=== PATIENT | male | born 1945 | race Caucasian/White ===

== ENCOUNTER 2016-11-02 21:21 | Inpatient (IN) ==
[2016-11-02] MEDS ORDERED: ONDANSETRON 4 MG/2 ML VIAL IV PRN (22:44)
[2016-11-02] MEDS ORDERED: SODIUM CHLORIDE 0.9% 500 ML IV STA (22:44)
[2016-11-02] MEDS ORDERED: ONDANSETRON 4 MG/2 ML VIAL ONE (22:50)
--- NOTE | 2016-11-02 22:51 | EKG Report ---
Stationary ECG Study [facility] ER Test Date: 11/02/2016 9:37:09 PM Pat Name: MILY SALGUERO Department: Room: Gender: M Blind Lacer: : 1945 Requested by: Jose Auguste Order Number: [id number] Reading MD: TIP LOCO Intervals [place] Rate: 108 P: 999 NC: 0 QRS: 169 QRSD: 105 T: 150 QT: 327 QTc: 391 Interpretive Statements ATRIAL FIBRILLATION WITH RAPID VENTRICULAR RESPONSE INDETERMINATE AXIS LOW QRS VOLTAGE IN PRECORDIAL LEADS LATERAL MYOCARDIAL INFARCTION, OLD Electronically Signed On 11-05-16 21:14:24 CDT by TIP LOCO [email or web address]
[2016-11-02 22:53] LABS: Basophils # 0.1 10*3/uL (0.0-0.2); Basophils % 0.7 % (0.0-0.8); Eosinophils # 0.2 10*3/uL (0.0-0.87); Eosinophils % 1.4 % (0.00-10.9); Hematocrit 40.6 VOL% (42.0-52.0); Hemoglobin 14.4 GM/DL (14.0-18.0); Immature Granulocytes % 0.6 %; Immature Granulocytes Absolute 0.08 #; Lymphocytes # 1.6 10*3/uL (1.4-4.0); Mean Corpuscular HGB Conc 35.5 GM/DL (32-36); Mean Corpuscular Hemoglobin 33 PG (27-34); Mean Platelet Volume 11.1 FL (9.6-12.0); Neutrophils # 10.7 10*3/uL (1.4-7.4); Neutrophils % 78.3 % (38.7-73.9); Platelet Count 148 T/CUMM (130-400); Red Blood Count 4.32 MC/CUMM (3.8-5.5); Red Cell Distribution Width 12.7 % (9.3-17.3); White Blood Count 13.6 T/CUMM (4-12)
[2016-11-02 23:00] LABS: PT Patient Result 10.4 SECS; Partial Thromboplastin Time 24.8 SECS (0-40)
[2016-11-02 23:11] LABS: Alanine Aminotransferase 24 U/L (16-61); Albumin 3.7 G/DL (3.4-5.0); Alkaline Phosphatase 93 U/L (45-117); Aspartate Amino Transferase 24 U/L (0-37); Blood Urea Nitrogen 18 MG/DL (7-18); Calcium 9.1 MG/DL (8.5-10.1); Glucose 155 MG/DL (74-106); Osmolality,Calculated 285.3 MOS/KG (273-304); Potassium 3.6 MMOL/L (3.5-5.1); Sodium 141 MMOL/L (136-145); Total Protein 7.4 G/DL (6.4-8.3)
--- NOTE | 2016-11-02 23:24 | Emergency Department Note ---
Arrival - Arrival Chief Complaint: Neuro Stated Complaint: possible stroke,vomiting, ED Nursing Triage Note: pt to triage with c/o nausea, sob, vommitting, and left side weakness. pt pupils reactive, pt is able to move all extremities. pt is alert, oriented, with no distress noted. pt bg was 149 in triage Mode of Arrival: Wheelchair Limitations: No Limitations Source: Patient, Family, RN Notes Reviewed Time Seen by Provider: 11/02/16 22:20 - History of Present Illness HPI Narrative: The family brings the patient in complaining of left sided weakness and slurred speech. This apparently started about 740 tonight when he fell and wedged himself between the bed and the wall. When they were able to remove him they state his left side was flaccid and speech was very slurred with a left facial droop. He had some vomiting and diaphoresis. They loaded him in the car and brought him here. By the time of arrival he was able to sit up in the wheelchair and his weakness had significantly improved. The patient has a history of atrial fibrillation. He was on an anticoagulant at some point but discontinued it over a year ago. 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 He has no history of CVA, intracranial hemorrhage or hemorrhage of any kind. He reports no recent illness. Allergies/Adverse Reactions: Allergies Allergy/AdvReac Type Severity Reaction Status Date / Time No Known Allergies Allergy Unverified 11/02/16 21:29 Home Medications: Home Medications Medication Instructions Recorded Confirmed Type Aspirin 81 mg PO DAILY 11/02/16 11/02/16 History Atorvastatin [Lipitor] 20 mg PO DAILY 11/02/16 11/02/16 History Carvedilol [Coreg] 6.25 mg PO BID 11/02/16 11/02/16 History Diltiazem Tab [Cardizem Tab] 240 mg PO DAILY 11/02/16 11/02/16 History Enalapril Tab [Vasotec Tab] 2.5 mg PO BID 11/02/16 11/02/16 History Furosemide Tab [Lasix Tab] 10 mg PO DAILY 11/02/16 11/02/16 History Levothyroxine Tab [Synthroid Tab] 150 mcg PO DAILY@0700 11/02/16 11/02/16 History Review of System - Review of System 12 point system: reviewed and no additional remarkable complaints except as stated - Review of System Constitutional: Present: diaphoresis, weakness. Absent: fever Eyes: Absent: vision change Head/Ears/Nose/Throat: Present: nasal drainage, sore throat Respiratory: Absent: cough, respiratory distress, wheezing Cardiovascular: Absent: chest pain Gastrointestinal: Present: nausea, vomiting. Absent: abdominal pain Musculoskeletal: Absent: arm pain, leg pain Neurological: Present: weakness, confusion, abnormal gait. Absent: numbness, paresthesias Medical,Surgical,& Family Hx - Medical History Cardio: History of: Cardiac Dysrhythmia (Atrial fibrillation), Hypertension Respiratory: History of: COPD, Respiratory Problems (sob, undiagnosed) - Surgical History Surgical History: noncontributory - Family History Family History: noncontributory - Social History Smoking Status: Never smoker Frequency of Alcohol Use: None Type of Drug Use: None Exam Physical Examination: GENERAL: Alert. No acute distress. HEENT: Normocephalic and atraumatic. PERRLA. There is no nasal drainage. No pharyngeal erythema or exudate. NECK: Normal inspection. Supple. No lymphadenopathy or meningismus. LUNGS: No respiratory distress. Clear to auscultation bilaterally, no wheezes, rales or rhonchi. HEART: Regular rate and rhythm. ABDOMEN: Soft, nontender and nondistended with normoactive bowel sounds. BACK: Normal inspection. SKIN: Color normal. Warm and dry. EXTREMITIES: Nontender. No pedal edema. NEUROLOGICAL/PSYCHIATRIC: Alert and oriented -3 with normal mood and affect. Has some trouble following commands due to slowed mentation. He has a left sided facial droop with slurred speech. This involves the forehead. He has a left lateral gaze palsy and does not deviate either eye to the left past midline. There is tongue deviation to the left. There is weakness of the left upper and left lower extremity. He is unable to hold either up against gravity. Reflexes are normal bilaterally. Vital Signs: Vital Signs Temperature 96.4 F L 11/02/16 21:22 Pulse Rate 107 H 11/02/16 21:22 Respiratory Rate 18 11/02/16 21:22 Blood Pressure 187/147 11/02/16 21:22 O2 Sat by Pulse Oximetry 94 L 11/02/16 21:22 Course - Reevaluation(s) Reevaluation #1: I have discussed the patient with Dr. Munoz and he does not recommend TPA given that the patient is approximately 4 hours out from the event and his blood pressure is still elevated. I discussed this with the patient and the family and they agree. Time: 23:44 Reevaluation #2: Blood pressure now 128/101. No change in the patient's neurologic exam. Time: 23:58 Reevaluation #3: I have discussed the patient with Dr. Li and will admit to Dr. Cui. ICU. Time: 00:01 Results - Labs CBC & BMP: 11/02/16 22:18 11/02/16 22:18 Lab Results: I have reviewed the patients labs Labs: Laboratory Tests 11/02/16 11/02/16 11/02/16 22:18 22:18 22:18 INR 1.0 Total Bilirubin 0.50 AST 24 ALT 24 Alkaline Phosphatase 93 Urine Leukocytes Trace Urine RBC 145 Urine WBC 21 Ur Culture Indicated? Results to follow - Impressions CT of the head shows no acute intracranial abnormality. Disposition Clinical Impression: Cerebrovascular accident, Hypertension, Atrial fibrillation Case discussed with: patient, patient's family Disposition: Still a Patient Condition: Guarded Time of Disposition: 23:59
[2016-11-02 23:31] LABS: Barbiturates Screen,Urine Negative (Negative); Benzodiazepines Screen,Urine Negative (Negative); Cannabinoid Screen,Urine Negative (Negative); Opiate Screen,Urine Negative (Negative); Phencyclidine Screen,Urine Negative (Negative)
[2016-11-02] MEDS ORDERED: hydrALAZINE 20 MG/1 ML VIAL ONE (23:34)
[2016-11-02 23:43] LABS: Apearance,Urine Slightly Hazy (Clear); Bilirubin,Urine Negative (Negative); Blood, Urine Moderate mg/dL (Negative); Glucose,Urine (UA) Negative (Negative); Hyaline Casts,Urine 1 /LPF (0-3); Ketones,Urine Negative (Negative); Mucus,Urine Occasional /LPF (Occasional); Nitrite,Urine Negative (Negative); Protein,Urine 30 MG/DL; RBC,Urine 145 /HPF (0-4); Urine Color Yellow (Yellow); Urine Specific Gravity 1.011 (1.001-1.035); Urine Urobilinogen < 2.0 EU/DL (0.2-1.0); WBC,Urine 21 /HPF (0-6)
[2016-11-02] MEDS ORDERED: ASPIRIN 325 MG TABLET PO STA (23:59)
[2016-11-02] MEDS ORDERED: ENOXAPARIN 40 MG/0.4 ML SYRINGE SUBCUT STA (23:59)
[2016-11-03] MEDS ORDERED: PROMETHAZINE 12.5 MG SUPP RECTAL PRN (00:02)
[2016-11-03] MEDS ORDERED: ACETAMINOPHEN 325 MG TABLET PO PRN (00:02)
[2016-11-03] MEDS ORDERED: ONDANSETRON 4 MG/2 ML VIAL IV PRN (00:02)
[2016-11-03] MEDS ORDERED: LABETALOL 20 MG/4 ML SYRINGE IV PRN (00:07)
[2016-11-03] MEDS: DILTIAZEM INJ 100 MG in SODIUM CHLORIDE 0.9% 100 ML IV SCH (00:11)
[2016-11-03] MEDS ORDERED: DILTIAZEM 100 MG VIAL.ADD IV ONE ×2 (00:20→02:00)
[2016-11-03] MEDS ORDERED: SODIUM CHLORIDE 0.9% 0 ML IV ONE (00:21)
[2016-11-03] MEDS ORDERED: SODIUM CHLORIDE 0.9% 100 ML IV ONE ×2 (02:01→02:04)
[2016-11-03] MEDS: DEXTROSE 5% NACL 0.45% 1,000 ML IV SCH ×5 (02:07→22:04)
--- NOTE | 2016-11-03 06:59 | CT Report ---
CT head/brain wo con Indication: Left hemiparesis Comparison: None Technique: Multiple axial tomographic images of the brain were obtained without the use of intravenous contrast. Findings: Midline structures are nondisplaced. There is no convincing evidence of acute intracranial hemorrhage . No convincing evidence of hydrocephalus. Moderate global volume loss present. Mild periventricular and subcortical hypoattenuation noted which is nonspecific but consistent with chronic microvascular ischemic change. Demyelinating process and vasculitis less likely considerations. Senescent mineralization of the bilateral basal ganglia. Atherosclerotic calcifications demonstrated. The visualized paranasal sinuses and bilateral mastoid air cells are predominantly clear. IMPRESSION: No acute intracranial abnormality demonstrated. Probable chronic microvascular ischemic change and volume loss. The CT exam was performed using one or more of the following dose reduction techniques: Automated exposure control, adjustment of the mA and/or kV according to patient size, or use of iterative reconstruction technique. PROCEDURE INTERPRETED AT [facility] DEPARTMENT OF RADIOLOGY Final Report Signed by: Dr Robbin Sethi
--- NOTE | 2016-11-03 07:55 | XRay Report ---
XR chest 1V portable Indication: Cardiomegaly Comparison: Chest x-ray dated June 17, 2012 Technique: Single frontal view of the chest. Findings: [id number] cardiomegaly. Mild prominence of interstitial lung markings suspicious for mild interstitial pulmonary edema. Visualized osseous and surrounding soft tissue structures appear grossly unchanged. IMPRESSION: As above. PROCEDURE INTERPRETED AT [facility] DEPARTMENT OF RADIOLOGY Final Report Signed by: Dr Robbin Sethi
[2016-11-03 08:41] LABS: Risk Ratio 5.25; VLDL CHOLESTEROL 38.4 MG/DL
[2016-11-03 08:57] LABS: Free T4 (Free Thyroxine) 0.74 NG/DL (0.76-1.46); Thyroid Stimulating Hormone 14.3 uIU/ml (0.358-3.74)
[2016-11-03] MEDS ORDERED: DOCUSATE SODIUM 100 MG CAPSULE PO SCH (09:00)
[2016-11-03] MEDS ORDERED: ATORVASTATIN 20 MG TABLET PO SCH (09:00)
[2016-11-03] MEDS: ENALAPRIL 2.5 MG TABLET PO SCH ×2 (09:04→20:13)
[2016-11-03] MEDS: ASPIRIN 325 MG TABLET PO SCH (09:04)
[2016-11-03] MEDS: FUROSEMIDE 20 MG TABLET PO SCH (09:04)
[2016-11-03] MEDS: PANTOPRAZOLE 40 MG VIAL IV SCH (09:05)
[2016-11-03] MEDS: CARVEDILOL 6.25 MG TABLET PO SCH ×2 (09:05→20:13)
--- NOTE | 2016-11-03 10:10 | Ultrasound Report ---
US carotid duplex BI Indication: CVA. Comparison: None. Technique: Multiple longitudinal and transverse real-time sonographic images of the bilateral carotid arterial systems are obtained with grayscale, spectral, and color Doppler analysis. Findings: Peak systolic velocities within the right CCA, proximal ICA, and distal ICA are 56, 107, and 69 cm/s respectively. Peak systolic velocities within the left CCA, proximal ICA, and distal ICA are 72, 93, and 74 cm/s respectively. ICA/CCA ratios on the right and left are 1.9 and 1.3 respectively. Antegrade flow demonstrated within the bilateral vertebral arteries. Grayscale imaging demonstrates significant atherosclerotic calcification bilaterally. On the left, there is suggesting significant narrowing of the left cervical ICA. IMPRESSION: Grayscale imaging demonstrates significant atherosclerotic calcification bilaterally. On the left, there is suggesting significant narrowing of the left cervical ICA. No significant elevated velocities. Consider CTA neck for further evaluation. Indirect NASCET criteria utilized. PROCEDURE INTERPRETED AT [facility] DEPARTMENT OF RADIOLOGY Final Report Signed by: Dr Robbin Sethi
--- NOTE | 2016-11-03 10:51 | ECHO Report ---
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 Mild - moderate concentric left ventricular hypertrophy with diastolic dysfunction. Left ventricular ejection fraction is estimated at Right Ventricle Normal right ventricular size. Right Atrium The right atrium is mild - moderately enlarged. Left Atrium The left atrium is mild - moderately enlarged. Mitral Valve Mildly thickened mitral valve with mild mitral regurgitation. Aortic Valve Mild aortic valve sclerosis without stenosis.trace aortic valve regurgitation. Tricuspid Valve Morphologically normal tricuspid valve. Trace to mild tricuspid valve regurgitation. Tricuspid regurgitation velocities suggest a PAP of 22.3 mmHg + RAP. Pulmonic Valve Thickened pulmonic valve. Trace pulmonary valve regurgitation. Pericardium No pericardial effusion. Aorta Normal size aortic root and proximal ascending aorta. Darion Hernandez (Electronically Signed) Final Date: 03 November 2016 10:49
--- NOTE | 2016-11-03 11:56 | Magnetic Resonance Report ---
MRI brain without contrast Indication: Cerebrovascular occlusion Comparison: None available Technique: Axial sagittal and coronal imaging of the brain is performed without contrast. T1, T2, FLAIR and diffusion weighted sequences are performed. Findings: There is restricted diffusion occupying a large area of the right basal ganglia and small amount in the right temporal lobe. These areas of faint T2 signal hyperintensity. No other evidence of restricted diffusion seen. No evidence of intracranial hemorrhage, mass, mass effect or midline shift is seen. There is moderate diffuse cerebral volume loss. A few areas of white matter T2 signal hyperintensity are present in the periventricular areas without restricted diffusion. There is decreased vascular flow voids in the right middle cerebral artery distribution. Remaining parenchyma has normal signal and differentiation. The ventricles and cisterns are appropriate in caliber. Posterior fossa, mid brain and pituitary gland appear within normal limits. No evidence of cranial or skull base abnormality seen. Impression: There is of restricted diffusion consistent with infarct likely greater than 8 hours age in the right basal ganglia and right temporal lobe. There is decreased flow void in the right middle cerebral artery could indicate thrombosis. PROCEDURE INTERPRETED AT [facility] DEPARTMENT OF RADIOLOGY Final Report Signed by: Dr. Brian Camara
--- NOTE | 2016-11-03 12:16 | Cardiology Consult Note ---
Harry Guerrero Vanessa, RN, am scribing for, and in the presence of, Darion Hernandez MD 12:16. Assessment and Plan - Time spent with patient Time spent with patient: Greater than 30 minutes (Date of assessment, planning, documentation, medication review) (1) Cerebrovascular accident Status: Acute Assessment and plan: 71 year old WM with PMHx hypertension, dyslipidemia, hypothyroid, cardiomyopathy with EF 45-50%, and chronic atrial fibrillation. Stopped taking anticoagulation approximately 1 year ago per patient decision. No GI bleeding or other intolerance. Now admitted to ICU with acute CVA. 1. Acute CVA-no evidence of bleed per head CT but significantly elevated BP. No TPA adminstered due to late presentation. Echo this morning suspicious for chronic (organized) LV apical thrombus. Neurology evaluation pending. 2. Atrial fibrillation-chronic. Has not been anticoagulated for stroke prevention in the past year (declined anticoagulation Dr. Hansen's clinic note 2016). IV Cardizem infusion with controlled ventricular response (had transient modest RVR initially). Currently Lovenox 40mg subQ daily, and full dose aspirin. 3. Hypertension- chronic. Significantly elevated BP on presentation to ER, 180/ 105, improved with IV hydralazine. Currently labetalol 10 mg IV as needed for uncontrolled HTN. Enalapril 2.5 twice daily and carvedilol 6.25 mg by mouth twice daily resumed at admission. Blood pressure now in the 150 systolic range which seems reasonable, but would defer to neurology for optimal blood pressure goal status post acute stroke. 4. Mild cardiomyopathy seems slightly better than previously, and previously has been felt to be nonischemic due to RVR and hypertension. 5. Dyslipidemia- was previously on Lipitor but quit taking. Atorvastatin 20 mg PO daily initiated. Fasting lipid panel this morning with triglycerides 192, cholesterol 210, LDL 131. Increase Lipitor 80 mg daily given this and his significant carotid artery disease noted today. 6. Hypothyroidism, TSH 14.3 with free T4 0.74. Synthroid supplement continued. Current Visit: Yes (2) Chronic atrial fibrillation Status: Chronic Assessment and plan: SEE PLAN OF CARE LISTED ABOVE. Current Visit: Yes (3) Hypertension Status: Chronic Assessment and plan: SEE PLAN OF CARE LISTED ABOVE. Current Visit: Yes (4) Hyperlipidemia Status: Chronic Assessment and plan: SEE PLAN OF CARE LISTED ABOVE. Current Visit: Yes (5) Hypothyroidism Status: Chronic Assessment and plan: SEE PLAN OF CARE LISTED ABOVE. Current Visit: Yes (6) Cardiomyopathy Status: Chronic Assessment and plan: SEE PLAN OF CARE LISTED ABOVE. Current Visit: Yes History of Present Illness - Data of Consult Patient: known to practice within the last 3 years Consult date: 11/03/16 Requesting Physician: Stas Cui - Consult Narrative Reason for consult: Atrial fibrillation History of present illness: Page Technician: Dr. Hansen Mr. Miner, 71-year-old WM, PMHx hypertension, hypercholesterolemia, hypothyroidism, and chronic atrial fibrillation. History of slightly reduced systolic function and cardiomyopathy related to tachycardia, hypertension, stress reaction. Last echo available December 2014 with LV EF 40-55%, mild biatrial enlargement,, mildly enlarged RV, mild TR with RVSP 24-34 mmHg. It was felt his dysfunction would most likely improve over time with more controlled ventricular response in atrial fibrillation. Last seen in clinic in April 2016 for 6 month follow-up, and BP controlled 128/85. He had no chest pain, orthopnea, PND, or other complaint. He is currently admitted to [facility] ICU after presenting overnight to ED after patient fell at home last night, afterward had some left sided hemiparesis , facial droop, and slurred speech with nausea and. He was assisted by family members, brought to ER for evaluation, and by the time he arrived to ER, symptoms had improved some but had some continued nausea plus shortness of breath. Significant hypertension in ER with BP 180/105. CT of his with chronic microvascular ischemic changes but no acute bleed or ischemia. He did not receive TPA as he was approximately 4 hours post event. EKG demonstrated atrial fibrillation with ventricular response 120, no acute ischemic change. Was given IV hydralazine, SubQ Lovenox prior to transfer to ICU. Has been placed on IV diltiazem infusion. Cardiology consult to see patient for history of atrial fibrillation. Carotid doppler US this morning with significant left ICA narrowing. Mr. Miner is is no acute respiratory distress. Denies current chest discomfort or dyspnea. Significant left facial droop, slurred speech, left side hemiplegia with some movement of left leg. BP 150/78. Atrial fib with ventricular response 60s. Denies history of GI bleeding or other intolerance of anticoagulation in the past. He took Coumadin for stroke prevention until approximately one year ago when he declined to continue to take it as he felt it was no longer necessary. CC: Stas Cui DO - Home Medications and Allergies Home Medications: Home Medications Medication Instructions Recorded Confirmed Type Aspirin 81 mg PO DAILY 11/02/16 11/03/16 History Atorvastatin [Lipitor] 20 mg PO DAILY 11/02/16 11/03/16 History Carvedilol [Coreg] 6.25 mg PO BID 11/02/16 11/03/16 History Enalapril Tab [Vasotec Tab] 2.5 mg PO BID 11/02/16 11/03/16 History Furosemide Tab [Lasix Tab] 10 mg PO DAILY 11/02/16 11/03/16 History Levothyroxine Tab [Synthroid Tab] 150 mcg PO DAILY@0700 11/02/16 11/03/16 History Diltiazem Cd Cap [Cardizem CD] 240 mg PO DAILY 11/03/16 11/03/16 History Allergies/Adverse Reactions: Allergies Allergy/AdvReac Type Severity Reaction Status Date / Time No Known Allergies Allergy Unverified 11/02/16 21:29 - Constitutional Constitutional: Present: weakness. Absent: anorexia, chills, excessive sweating , fatigue, fever(s), frequent falls, lethargy, weight gain, weight loss - EENT Eyes: Absent: blurry vision, loss of vision Ears: Absent: decreased hearing Nose, mouth and throat: Absent: dysphagia, epistaxis, hoarseness, nasal congestion, neck pain, sinus pressure, tongue swelling, vertigo - Cardiovascular Cardiovascular: Absent: chest pain at rest, chest pain with activity, claudication, diaphoresis, dyspnea, dyspnea on exertion, edema, radiating jaw, neck or arm pain, lightheadedness, orthopnea, palpitations, PND - Respiratory Respiratory: Absent: cough, dyspnea, dyspnea on exertion, change in phlegm color - Gastrointestinal Gastrointestinal: Absent: abdominal pain, dysphagia, early satiety, hematemesis , melena, nausea, vomiting, jaundice - Genitourinary Genitourinary: Absent: difficulty urinating, flank pain, nocturia - Musculoskeletal Musculoskeletal: Present: arthralgias, limited range of motion (Due to acute CVA ) - Neurological Neurological: Absent: abnormal gait, abnormal speech, confusion, dizziness, radicular pain, syncope, tremor(s) - Psychiatric Psychiatric: Absent: anxiety, depression - Endocrine Endocrine: Absent: cold intolerance, heat intolerance - Hematologic/Lymphatic Hematologic/Lymphatic: Absent: easy bleeding, easy bruising Medical,Surgical,& Family Hx - Medical History Cardio: History of: Cardiac Dysrhythmia (Atrial fibrillation), Hypertension No history of: CAD, Pacemaker, PVD Psychological: History of: Anxiety Disorders, Depression Neurology: No history of: Dementia, Seizures, TIA Endocrine: History of: Dyslipidemia, Thyroid Disorder No history of: Diabetes Mellitus (IDDM), Diabetes Mellitus (NIDDM) Respiratory: History of: COPD, Respiratory Problems (sob, undiagnosed) No history of: Pulmonary Embolism Renal: No history of: Dialysis, Renal Problems Gastrointestinal: No history of: GERD, Hepatitis Musculoskeletal: No history of: Back/Neck Problems Hematology: No history of: Anemia, Blood Transfusion Reaction, Bleeding Problems, Clotting Problems Other: No history of: Cancer, HIV - Surgical History Cardiac Surgeries: Patient Denies: Cardiac Catheterization, Carotid Endarterectomy - Social History Smoking Status: Never smoker Frequency of Alcohol Use: None Type of Drug Use: None Physical Examination Vital Signs Temp Pulse Resp BP Pulse Ox 96.4 F L 107 H 18 187/147 94 L 11/02/16 21:22 11/02/16 21:22 11/02/16 21:22 11/02/16 21:22 11/02/16 21:22 General: Present: No Apparent Distress, Other (pleasant, calm, cooperative) HEENT: Absent: Jaundice Neck: Present: Midline Trachea Cardiac: Present: Irregularly Regular, Systolic Murmur. Absent: Tachycardia, Bradycardia Lungs: Present: Clear Ascult./Percussion, No Wheeze, Rales, Rhonchi. Absent: Oxygen Neuro: Present: Weakness (left hemiplegia with paralysis left arm), Other (left sided facial droop; slurred speech). Absent: Resting Tremor, Essential Tremor Abdomen: Present: Soft, Active Bowel Sounds, No Masses, No Pulsations/Bruits. Absent: Ascites, Tender, Firm, Distended Skin: Present: Clear. Absent: Rash, Suspicious Lesions, Moist Musculoskeletal: Present: Decreased Range of Motion (due to acute CVA) Extremities: Present: No Clubbing, No Cyanosis, No Edema, Normal Upper Extr. Pulses, Normal Lower Extr. Pulses, Capillary Refill (normal) Result/EKG - Labs CBC & BMP: 11/02/16 22:18 11/02/16 22:18 Lab Results: I have reviewed the past 24 hour labs Labs: Laboratory Results - last 24 hr 11/02/16 11/02/16 11/02/16 22:18 22:18 22:18 WBC 13.6 H RBC 4.32 Hgb 14.4 Hct 40.6 L MCV 94.0 MCH 33 MCHC 35.5 RDW 12.7 Plt Count 148 MPV 11.1 Neut % (Auto) 78.3 H Lymph % (Auto) 12.0 L Foster % (Auto) 7.0 Eos % (Auto) 1.4 Baso % (Auto) 0.7 Neut # (Auto) 10.7 H Lymph # (Auto) 1.6 Foster # (Auto) 1.0 H Eos # (Auto) 0.2 Baso # (Auto) 0.1 Immature Gran % 0.6 Nucleated RBC % 0.0 Immature Gran # 0.08 Nucleated RBCs # 0.00 Immature Plt Fraction 0.0 INR PT Patient/Control Mix Circ Anticoag PTT Sodium Potassium Chloride Carbon Dioxide Anion Gap BUN Creatinine GFR Calculation BUN/Creatinine Ratio Glucose Calculated Osmolality Calcium Total Bilirubin AST ALT Alkaline Phosphatase Total Protein Albumin Globulin Albumin/Globulin Ratio Urine Color Yellow Urine Appearance Slightly hazy Urine pH 6.0 Ur Specific [place] 1.011 Urine Protein 30 Urine Glucose (UA) Negative Urine Ketones Negative Urine Blood Moderate Urine Nitrate Negative Urine Bilirubin Negative Urine Urobilinogen < 2.0 H Urine Leukocytes Trace Urine RBC 145 Urine WBC 21 Hyaline Casts 1 Urine Mucus Occasional Ur Culture Indicated? Results to follow Urine Opiates Screen Negative Ur Barbiturates Screen Negative Ur Phencyclidine Scrn Negative U Amphetamine/Methamph Negative U Benzodiazepines Scrn Negative U Cocaine Metab Screen Negative U Cannabinoids Screen Negative Serum Alcohol 11/02/16 11/02/16 22:18 22:18 WBC RBC Hgb Hct MCV MCH MCHC RDW Plt Count MPV Neut % (Auto) Lymph % (Auto) Foster % (Auto) Eos % (Auto) Baso % (Auto) Neut # (Auto) Lymph # (Auto) Foster # (Auto) Eos # (Auto) Baso # (Auto) Immature Gran % Nucleated RBC % Immature Gran # Nucleated RBCs # Immature Plt Fraction INR 1.0 PT Patient/Control Mix 10.4 Circ Anticoag PTT 24.8 Sodium 141 Potassium 3.6 Chloride 103 Carbon Dioxide 33 H Anion Gap 8.6 BUN 18 Creatinine 1.50 H GFR Calculation 53 BUN/Creatinine Ratio 12.00 Glucose 155 H Calculated Osmolality 285.3 Calcium 9.1 Total Bilirubin 0.50 AST 24 ALT 24 Alkaline Phosphatase 93 Total Protein 7.4 Albumin 3.7 Globulin 3.7 H Albumin/Globulin Ratio 1.0 L Urine Color Urine Appearance Urine pH Ur Specific [place] Urine Protein Urine Glucose (UA) Urine Ketones Urine Blood Urine Nitrate Urine Bilirubin Urine Urobilinogen Urine Leukocytes Urine RBC Urine WBC Hyaline Casts Urine Mucus Ur Culture Indicated? Urine Opiates Screen Ur Barbiturates Screen Ur Phencyclidine Scrn U Amphetamine/Methamph U Benzodiazepines Scrn U Cocaine Metab Screen U Cannabinoids Screen Serum Alcohol < 15 L - Diagnostic Findings Procedure: Chest x-ray: image reviewed by me, report reviewed by me, CT: image reviewed by me, report reviewed by me - EKG EKG results: interpreted by me, no acute changes EKG shows: atrial fibrillation (Controlled ventricular response) Quality Measures - Stroke Onset of Symptoms Date: 11/02/16 Mary Guerrero Randall Scott, MD, personally performed the services described in this documentation, ascribed by Jody Mcdonald RN in my presence, and it is both accurate and complete 216 .
--- NOTE | 2016-11-03 12:45 | Family Practice History&Phys ---
Assessment and Plan (1) Atrial fibrillation Status: Acute Assessment and plan: 11/03/2016. Patient's rate is under control with Cardizem. Cardiology is involved Current Visit: Yes (2) Cerebrovascular accident Status: Acute Assessment and plan: 11/03/2016: I am going to see about transferring him to [facility] if he meets the timeframe. We just got the MRI results back about 45 minutes ago. Current Visit: Yes (3) Cardiomyopathy Status: Chronic Assessment and plan: 11/03/2016: Cardiology involved. Echocardiogram was done. We also did a carotid duplex which reveals some narrowing, please see result Current Visit: Yes (4) Chronic atrial fibrillation Status: Chronic Assessment and plan: 11/03/2016: This is being managed by Cardizem with good rate control at present. Patient has not been on Coumadin as he is refused in the past Current Visit: Yes (5) Hyperlipidemia Status: Chronic Assessment and plan: 11/03/2016: Patient has historically been on lipid statins but question his compliance. Current Visit: Yes (6) Hypertension Status: Chronic Assessment and plan: 11/03/2016: This is under control o at this time Current Visit: Yes (7) Hypothyroidism Status: Chronic Assessment and plan: 11/03/2016 we will make some adjustments to the S1 outpatient basis. Current Visit: Yes History of Present Illness Chief complaint: Left sided hemiparesis, slurred speech, CVA History of present illness: Mr. Miner is a 71 year old male Known to me, saw him this morning. Does have a history of hypertension, hypothyroidism, hypercholesterolemia and and chronic atrial fibrillation for which he has refused treatment in the past. Also has had a cardiomyopathy in the past. His last echocardiogram revealed an ejection fraction of about 50% in 2014. He came to the emergency room after he fell at home last night and it was noted that he had some left sided hemiparesis with slurred speech and nausea. He also had elevated blood pressure which was treated with appropriate medications. It was quite clear that he had had a stroke however it was not within the 4 hour timeframe required and did not get a TB at that time. He was given medication including Lovenox and aspirin. As mentioned, was given medication for his elevated blood pressure. This morning was saying continues to have inability to basically move his left arm or left leg. He does have some slightly slurred speech but he answers and tries to follow commands. Blood pressure is much improved at 140/79 at present. He does still have a irregular heart rate suggesting atrial fibrillation but his rate is controlled. A CBC revealed a white count of 13.6 with a normal H and H. Chemistries were normal except for slight elevation of creatinine 1.5. He does have elevated cholesterol but apparently is not taking his statins at this time. Urinalysis was normal. A CT scan was performed of the brain which revealed no bleed but some microvascular changes. MRI of the brain was just done and there was a noted infarct in the right basal ganglia and right temporal lobe. With decreased flow in the right middle cerebral artery, possibly a thrombosis. Will try to maximize medications and keep his blood pressure and heart rate under control which he has had consultation to cardiology and we do appreciate their services. We will see if we need to transfer him or if he meets criteria. Home Medications Medication Instructions Recorded Confirmed Type Aspirin 81 mg PO DAILY 11/02/16 11/03/16 History Atorvastatin [Lipitor] 20 mg PO DAILY 11/02/16 11/03/16 History Carvedilol [Coreg] 6.25 mg PO BID 11/02/16 11/03/16 History Enalapril Tab [Vasotec Tab] 2.5 mg PO BID 11/02/16 11/03/16 History Furosemide Tab [Lasix Tab] 10 mg PO DAILY 11/02/16 11/03/16 History Levothyroxine Tab [Synthroid Tab] 150 mcg PO DAILY@0700 11/02/16 11/03/16 History Diltiazem Cd Cap [Cardizem CD] 240 mg PO DAILY 11/03/16 11/03/16 History Allergies Allergy/AdvReac Type Severity Reaction Status Date / Time No Known Allergies Allergy Unverified 11/02/16 21:29 12 point system: reviewed and no additional remarkable complaints except as stated (That mentioned above in the history and physical.) - Neurological Neurological: Present: abnormal speech, focal weakness, numbness, paresthesias Medical,Surgical,& Family Hx - Medical History Cardio: History of: Cardiac Dysrhythmia (Atrial fibrillation), Hypertension No history of: CAD, Pacemaker, PVD Psychological: History of: Anxiety Disorders, Depression Neurology: No history of: Dementia, Seizures, TIA Endocrine: History of: Dyslipidemia, Thyroid Disorder No history of: Diabetes Mellitus (IDDM), Diabetes Mellitus (NIDDM) Respiratory: History of: COPD, Respiratory Problems (sob, undiagnosed) No history of: Pulmonary Embolism Renal: No history of: Dialysis, Renal Problems Gastrointestinal: No history of: GERD, Hepatitis Musculoskeletal: No history of: Back/Neck Problems Hematology: No history of: Anemia, Blood Transfusion Reaction, Bleeding Problems, Clotting Problems Other: No history of: Cancer, HIV - Surgical History Cardiac Surgeries: Patient Denies: Cardiac Catheterization, Carotid Endarterectomy HEENT Surgeries: Patient denies: Carotid Endarterectomy - Social History Smoking Status: Never smoker Frequency of Alcohol Use: None Type of Drug Use: None Exam - Constitutional Vitals: Period Temp Pulse Resp BP Sys/Elizabeth Pulse Ox Last 24 Hr 96.4 F-98.6 F 64-155 12-22 126-187/75-147 91-98 Exam: 11/03/2016: Generally patient is alert he does respond appropriately and is able to communicate albeit somewhat slow. HEENT pupils are equal and reactive. Patient does have some drooping of the right side of his face. The uvula is midline at this time. He has both left and right movement of his tongue. Neck is supple and trachea is midline. Cardiovascular rate is irregular with a 1 out of 6 systolic ejection murmur there is no gallop or rub. It does look like he has got atrial fibrillation on EKG Lungs generally clear bilaterally may be a few basal rales. Abdomen soft nondistended Extremities positive radial and dorsalis pedal pulses in upper and lower extremities respectively. Neurological please see above note Results - Labs CBC & BMP: 11/02/16 22:18 11/02/16 22:18 Quality Measures - Stroke Onset of Symptoms Date: 11/02/16
[2016-11-03] MEDS: ATORVASTATIN 40 MG TABLET PO SCH (13:58)
--- NOTE | 2016-11-03 15:00 | Neurology Consult Note ---
History of Present Illness History of present illness: Mr. Miner is a 71 year old right-handed white gentleman with past medical history significant for hypertension, hypothyroidism, hypercholesterolemia, chronic atrial fibrillation for which he has refused treatment in the past, cardiomyopathy with last echocardiogram revealed ejection fraction of 50% in 2014. He came to the emergency room after he fell at home last night and it was noted that he had some left sided weakness with slurred speech and nausea. He also had elevated blood pressure which was treated with appropriate medications. He was started on Lovenox and aspirin last night. He was out of the window for TPA. He has slurred speech and has also developed some vision difficulties in the left side. MRI of the brain revealed acute infarct in the right MCA distribution with right MCA thrombosis. Lipid panel is abnormal and Lipitor has been adjusted. Home Medications Medication Instructions Recorded Confirmed Type Aspirin 81 mg PO DAILY 11/02/16 11/03/16 History Atorvastatin [Lipitor] 20 mg PO DAILY 11/02/16 11/03/16 History Carvedilol [Coreg] 6.25 mg PO BID 11/02/16 11/03/16 History Enalapril Tab [Vasotec Tab] 2.5 mg PO BID 11/02/16 11/03/16 History Furosemide Tab [Lasix Tab] 10 mg PO DAILY 11/02/16 11/03/16 History Levothyroxine Tab [Synthroid Tab] 150 mcg PO DAILY@0700 11/02/16 11/03/16 History Diltiazem Cd Cap [Cardizem CD] 240 mg PO DAILY 11/03/16 11/03/16 History Allergies Allergy/AdvReac Type Severity Reaction Status Date / Time No Known Allergies Allergy Unverified 11/02/16 21:29 12 point system: reviewed and no additional remarkable complaints except as stated Medical,Surgical,& Family Hx - Medical History Cardio: History of: Cardiac Dysrhythmia (Atrial fibrillation), Hypertension No history of: CAD, Pacemaker, PVD Psychological: History of: Anxiety Disorders, Depression Neurology: No history of: Dementia, Seizures, TIA Endocrine: History of: Dyslipidemia, Thyroid Disorder No history of: Diabetes Mellitus (IDDM), Diabetes Mellitus (NIDDM) Respiratory: History of: COPD, Respiratory Problems (sob, undiagnosed) No history of: Pulmonary Embolism Renal: No history of: Dialysis, Renal Problems Gastrointestinal: No history of: GERD, Hepatitis Musculoskeletal: No history of: Back/Neck Problems Hematology: No history of: Anemia, Blood Transfusion Reaction, Bleeding Problems, Clotting Problems Other: No history of: Cancer, HIV - Surgical History Cardiac Surgeries: Patient Denies: Cardiac Catheterization, Carotid Endarterectomy HEENT Surgeries: Patient denies: Carotid Endarterectomy - Social History Smoking Status: Never smoker Frequency of Alcohol Use: None Type of Drug Use: None Exam - Constitutional Vitals: Period Temp Pulse Resp BP Sys/Elizabeth Pulse Ox Last 24 Hr 96.4 F-98.6 F 64-155 12-22 100-187/75-147 91-98 Exam: GENERAL: Patient is in no acute distress. NECK: Neck is supple. There is no JVD. No carotid bruits present. No thyroid masses. CVS: First and second heart sounds are normal. There is no S3 present. Regular rate and rhythm. RESPIRATORY: Lungs are clear to auscultation without any rales or rhonchi. ABDOMEN: Soft and non-tender. Bowel sounds are present. There is no hepatosplenomegaly. EXT: There is no palpable edema. Peripheral pulses are present. Skin: No rashes Central Nervous system: General: Alert, awake and Oriented x 3 Speech: Fluent Comprehension: Intact and normal Facial expressions: Normal Cranial Nerves: CN1/Olfactory: Normal CN II/ Optic: Normal, Visual Foley left homonymous hemianopia CN III, and : AGUSTO & EOMI CN V: Normal & intact CN VII: Left central facial weak CNVIII: Normal CN XI/X/XI/XII: Intact and Normal Motor: Bulk and Tone is normal. Strength in the right 5/5 Strength in the left upper extremity 1-2/5 with some spasticity and left lower extreme2-3/5 Sensory: Decreased for all the modalities of PP, LT and temp sense Reflexes: 1+ and symmetrical Cerebellar function: Normal finger to nose and heel to shukla testing in the right) and the left. Toes: Left toe is upgoing Gait: Not tested at this time Results - Labs CBC & BMP: 11/02/16 22:18 11/02/16 22:18 Assessment and Plan (1) Acute CVA (cerebrovascular accident) Status: Acute Assessment and plan: Change Lovenox to 40 mg subcu every 12 Continue aspirin a day Echocardiogram Carotid ultrasound Consult PT OT and ST Consult TMR Thank you for the consult Current Visit: Yes
[2016-11-03 15:48] LABS: Apearance,Urine Slightly Hazy (Clear); Bilirubin,Urine Negative (Negative); Blood, Urine Moderate mg/dL (Negative); Glucose,Urine (UA) Negative (Negative); Ketones,Urine Negative (Negative); Mucus,Urine Occasional /LPF (Occasional); Nitrite,Urine Negative (Negative); Protein,Urine 30 MG/DL; RBC,Urine 117 /HPF (0-4); Urine Color Yellow (Yellow); Urine Specific Gravity 1.012 (1.001-1.035); Urine Urobilinogen < 2.0 EU/DL (0.2-1.0); WBC,Urine 20 /HPF (0-6)
[2016-11-03] MEDS: BACLOFEN 10 MG TABLET PO SCH (20:13)
[2016-11-03] MEDS: ENOXAPARIN 40 MG/0.4 ML SYRINGE SUBCUT SCH (20:19)
[2016-11-03] MEDS: DOCUSATE SODIUM 100 MG/10 ML UDCUP PO SCH (20:57)
[2016-11-03] MEDS ORDERED: ENOXAPARIN 40 MG/0.4 ML SYRINGE SUBCUT SCH (21:00)
[2016-11-03] MEDS ORDERED: hydrALAZINE 20 MG/1 ML VIAL IV ONE (23:50)
[2016-11-04 05:55] LABS: Basophils # 0.1 10*3/uL (0.0-0.2); Basophils % 0.6 % (0.0-0.8); Eosinophils # 0.2 10*3/uL (0.0-0.87); Eosinophils % 1.7 % (0.00-10.9); Hematocrit 37.8 VOL% (42.0-52.0); Hemoglobin 13.2 GM/DL (14.0-18.0); Immature Granulocytes % 0.5 %; Immature Granulocytes Absolute 0.07 #; Lymphocytes # 1.8 10*3/uL (1.4-4.0); Lymphocytes % 13.4 % (21.2-54.2); Mean Corpuscular HGB Conc 34.9 GM/DL (32-36); Mean Corpuscular Hemoglobin 33 PG (27-34); Mean Corpuscular Volume 95.2 FL (87-102); Mean Platelet Volume 11.3 FL (9.6-12.0); Monocytes # 1.3 10*3/uL (0.11-0.8); Monocytes % 10.1 % (1.7-12.7); Neutrophils # 9.7 10*3/uL (1.4-7.4); Neutrophils % 73.7 % (38.7-73.9); Platelet Count 127 T/CUMM (130-400); Red Blood Count 3.97 MC/CUMM (3.8-5.5); Red Cell Distribution Width 12.9 % (9.3-17.3); White Blood Count 13.2 T/CUMM (4-12)
[2016-11-04] MEDS: DILTIAZEM INJ 100 MG in SODIUM CHLORIDE 0.9% 100 ML IV SCH (06:11)
[2016-11-04] MEDS: DEXTROSE 5% NACL 0.45% 1,000 ML IV SCH ×3 (06:12→15:54)
[2016-11-04] MEDS: LEVOTHYROXINE 150 MCG TABLET PO SCH (06:23)
[2016-11-04 06:40] LABS: Calcium 8.4 MG/DL (8.5-10.1); Magnesium 2.3 MG/DL (1.8-2.4); Osmolality,Calculated 278.4 MOS/KG (273-304); Potassium 3.4 MMOL/L (3.5-5.1); Risk Ratio 5.54; VLDL CHOLESTEROL 33.6 MG/DL
[2016-11-04] MEDS: ASPIRIN 325 MG TABLET PO SCH (08:36)
[2016-11-04] MEDS: ENALAPRIL 2.5 MG TABLET PO SCH ×2 (08:36→21:27)
[2016-11-04] MEDS: CARVEDILOL 6.25 MG TABLET PO SCH (08:36)
[2016-11-04] MEDS: ATORVASTATIN 40 MG TABLET PO SCH (08:36)
[2016-11-04] MEDS: BACLOFEN 10 MG TABLET PO SCH ×2 (08:37→21:27)
[2016-11-04] MEDS: FUROSEMIDE 20 MG TABLET PO SCH (08:37)
[2016-11-04] MEDS: DOCUSATE SODIUM 100 MG/10 ML UDCUP PO SCH ×2 (08:37→21:39)
[2016-11-04] MEDS: POTASSIUM CHLORIDE 20 MEQ/15 ML UDCUP PO SCH (08:38)
[2016-11-04] MEDS: ENOXAPARIN 40 MG/0.4 ML SYRINGE SUBCUT SCH ×2 (08:38→21:33)
[2016-11-04] MEDS: PANTOPRAZOLE 40 MG VIAL IV SCH (08:38)
--- NOTE | 2016-11-04 09:18 | Neurology Progress Note ---
Neurology - PN : Subjective Interval history: Patient seems to be doing better. No new problems reported. Swallowing is better. Speech is better. Left side is still quite weak. Blood pressure is fluctuating. Echocardiogram revealed ejection fraction of 45-50%. Carotid ultrasound reveals kinking of the carotid arteries and recommended CTA. Exam (Progress Note) - Constitutional Vitals: Period Temp Pulse Resp BP Sys/Elizabeth Pulse Ox Last 24 Hr 98.1 F-99.7 F 64-94 16-20 100-174/64-109 96-99 Exam: GENERAL: Patient is in no acute distress. NECK: Neck is supple. There is no JVD. No carotid bruits present. No thyroid masses. CVS: First and second heart sounds are normal. There is no S3 present. Regular rate and rhythm. RESPIRATORY: Lungs are clear to auscultation without any rales or rhonchi. ABDOMEN: Soft and non-tender. Bowel sounds are present. There is no hepatosplenomegaly. EXT: There is no palpable edema. Peripheral pulses are present. Skin: No rashes Central Nervous system: General: Alert, awake and Oriented x 3 Speech: Fluent Comprehension: Intact and normal Facial expressions: Normal Cranial Nerves: CN1/Olfactory: Normal CN II/ Optic: Normal, Visual Foley left homonymous hemianopia CN III, and : AGUSTO & EOMI CN V: Normal & intact CN VII: Left central facial weak CNVIII: Normal CN XI/X/XI/XII: Intact and Normal Motor: Bulk and Tone is normal. Strength in the right 5/5 Strength in the left upper extremity 1-2/5 with some spasticity and left lower extreme2-3/5 Sensory: Decreased for all the modalities of PP, LT and temp sense Reflexes: 1+ and symmetrical Cerebellar function: Normal finger to nose and heel to shukla testing in the right) and the left. Toes: Left toe is upgoing Gait: Not tested at this time Results - Labs CBC & BMP: 11/04/16 04:49 11/04/16 04:49 Assessment and Plan (1) Acute CVA (cerebrovascular accident) Status: Acute Assessment and plan: Continue Lovenox to 40 mg subcu every 12 Continue aspirin a day Recommend CTA Okay to go to the floor from neuro standpoint Current Visit: Yes Quality Measures - Stroke Onset of Symptoms Date: 11/02/16
--- NOTE | 2016-11-04 09:20 | Family Practice Progress Note ---
Family Practice - PN: Subj Interval history: Patient seen this morning. Still cannot move his left side at all. He is alert and oriented he answers all questions he certainly attempts to follow directions. I do not appreciate any significant cognitive issues. Is stable hemodynamically. Blood pressure running about 160/90 which is where we probably will not. Did require a Asif catheter this morning. There was a little blood in it but he is on some blood thinners at this time. Low-grade fever with slight elevation of white count. I will go ahead and put him on an antibiotic at this time. Am concerned about the possibility of him aspirating. If needed we will get a dedicated swallowing study. Plan is to transfer him to the floor today and get PT and OT. Neurology has already seen him and he will need some time in a rehab will try to get him down there tomorrow if everything goes well to the Exam (Progress Note) - Constitutional Vitals: Period Temp Pulse Resp BP Sys/Elizabeth Pulse Ox Last 24 Hr 98.1 F-99.7 F 64-94 16-20 100-174/64-109 96-99 Exam: 11/03/2016: Generally patient is alert he does respond appropriately . HEENT pupils are equal and reactive. Patient does have some drooping of the right side of his face. The uvula is midline at this time. He has both left and right movement of his tongue. Neck is supple and trachea is midline. Cardiovascular rate is irregular with a 1 out of 6 systolic ejection murmur there is no gallop or rub. It does look like he has got atrial fibrillation on EKG Lungs generally clear bilaterally may be a few basal rales. Abdomen soft nondistended Extremities positive radial and dorsalis pedal pulses in upper and lower extremities respectively. Still not moving left side of his body secondary to recent CVA Results - Labs CBC & BMP: 11/04/16 04:49 11/04/16 04:49 Assessment and Plan (1) Atrial fibrillation Status: Acute Assessment and plan: 11/03/2016. Patient's rate is under control with Cardizem. Cardiology is involved Current Visit: Yes (2) Cerebrovascular accident Status: Acute Assessment and plan: 11/03/2016: I am going to see about transferring him to [facility] if he meets the timeframe. We just got the MRI results back about 45 minutes ago. Current Visit: Yes (3) Cardiomyopathy Status: Chronic Assessment and plan: 11/03/2016: Cardiology involved. Echocardiogram was done. We also did a carotid duplex which reveals some narrowing, please see result Current Visit: Yes (4) Chronic atrial fibrillation Status: Chronic Assessment and plan: 11/03/2016: This is being managed by Cardizem with good rate control at present. Patient has not been on Coumadin as he is refused in the past Current Visit: Yes (5) Hyperlipidemia Status: Chronic Assessment and plan: 11/03/2016: Patient has historically been on lipid statins but question his compliance. Current Visit: Yes (6) Hypertension Status: Chronic Assessment and plan: 11/03/2016: This is under control o at this time Current Visit: Yes (7) Hypothyroidism Status: Chronic Assessment and plan: 11/03/2016 we will make some adjustments to the S1 outpatient basis. Current Visit: Yes (8) Fever Status: Acute Assessment and plan: 11/04/2016: We will go ahead and put him on antibiotics at this time Current Visit: Yes Quality Measures - Stroke Onset of Symptoms Date: 11/02/16
--- NOTE | 2016-11-04 11:37 | Cardiology Progress Note ---
Harry Guerrero Vanessa, RN, am scribing for, and in the presence of, Darion Hernandez MD 11:31. Assessment and Plan - Time spent with patient Time spent with patient: Greater than 30 minutes (1) Cerebrovascular accident Status: Acute Assessment and plan: 71 year old WM with PMHx hypertension, dyslipidemia, hypothyroid, cardiomyopathy with EF 40-50%, and chronic atrial fibrillation. Stopped taking anticoagulation approximately 1 year ago per patient decision. No GI bleeding or other intolerance. Now admitted to ICU with acute CVA. 1. Acute CVA-no evidence of bleed per head CT but significantly elevated BP. No TPA adminstered due to late presentation. Echo this morning suspicious for chronic (organized) LV apical thrombus. Neurology evaluation pending. 2. Atrial fibrillation-chronic. Has not been anticoagulated for stroke prevention in the past year (declined anticoagulation Dr. Hansen's clinic note 2015). IV Cardizem infusion with controlled ventricular response (had transient modest RVR initially). Currently Lovenox 40mg subQ daily, and full dose aspirin. 3. Hypertension- chronic. Significantly elevated BP on presentation to ER, 180/ 105, improved with IV hydralazine. Currently labetalol 10 mg IV as needed for uncontrolled HTN. Enalapril 2.5 twice daily and carvedilol 6.25 mg by mouth twice daily resumed at admission. Blood pressure now in the 150 systolic range which seems reasonable, but would defer to neurology for optimal blood pressure goal status post acute stroke. 4. Mild cardiomyopathy seems slightly better than previously, and previously has been felt to be nonischemic due to RVR and hypertension. 5. Dyslipidemia- was previously on Lipitor but quit taking. Atorvastatin 20 mg PO daily initiated. Fasting lipid panel this morning with triglycerides 192, cholesterol 210, LDL 131. Increase Lipitor 80 mg daily given this and his significant carotid artery disease noted today. 6. Hypothyroidism, TSH 14.3 with free T4 0.74. Synthroid supplement continued. 2016: 1. Speech appears to be a little better with slightly more movement on his left side but still severe weakness 2. Chronic atrial fibrillation with some episodes of RVR; increase Coreg to 12.5 mg twice daily 3. Borderline LV function (45-50% EF, previously thought to be nonischemic followed by Dr. Hansen) with probable relatively small organized apical thrombus (does not appear to be the source of his stroke as it has a "rind" around it, suggesting it is quite old). Atrial fibrillation without anticoagulation is likely the cause of his large CVA. 4. Give Crestor 40 for high intensity statin therapy 5. Significant carotid disease is being evaluated 6. Defer to neurology regarding anticoagulation; hematuria noted in Asif bag. 7. We will follow with you. Current Visit: Yes (2) Chronic atrial fibrillation Status: Chronic Assessment and plan: SEE PLAN OF CARE LISTED ABOVE. Current Visit: Yes (3) Hypertension Status: Chronic Assessment and plan: SEE PLAN OF CARE LISTED ABOVE. Current Visit: Yes (4) Hyperlipidemia Status: Chronic Assessment and plan: SEE PLAN OF CARE LISTED ABOVE. Current Visit: Yes (5) Hypothyroidism Status: Chronic Assessment and plan: SEE PLAN OF CARE LISTED ABOVE. Current Visit: Yes (6) Cardiomyopathy Status: Chronic Assessment and plan: SEE PLAN OF CARE LISTED ABOVE. Current Visit: Yes Cardiology - PN: Subj Interval history: Glass Products Inspector: Dr. Hansen SUMMARY: Mr. Mnier, 71-year-old WM, PMHx hypertension, hypercholesterolemia, hypothyroidism, and chronic atrial fibrillation. History of slightly reduced systolic function and cardiomyopathy related to tachycardia, hypertension, stress reaction. Last echo available December 2014 with LV EF 40-55%, mild biatrial enlargement,, mildly enlarged RV, mild TR with RVSP 24-34 mmHg. Approximately 1 year ago, refused to continue anticoagulation (was on Coumadin) for stroke prevention. Admitted to [facility] ICU on 11/02 after fall at home with left sided weakness, slurred speech, nausea afterward. Significantly elevated BP, 180/[address] head benign for acute change. EKG: atrial fibrillation with ventricular response 120. Did not receive TPA in ER due to delayed presentation. Since admit to ICU, carotid doppler US with bilateral carotid stenosis, significant narrowing left ICA. MRI of brain on 11/03 shows acute infarct in right MCA distribution with right MCA thrombosis. Statin dosage increased due to grossly abnormal lipid panel. Echocardiogram with mildly reduced LV systolic function, EF 45-50%, aortic sclerosis without stenosis, small to moderate sized old apical thrombus with normal apical LV function. Anticoagulation with Lovenox and ASA started. 2016: Mr. Miner appears to feel somewhat better today. Awake with improved speech but still with left hemiplegia. Denies complaint this morning. Atrial fib with ventricular response 80s. RVR 140s-150s overnight requiring brief IV Cardizem infusion, off this morning. Blood pressure stable with SBP 130-150 mmHg range. Tolerating pureed diet and denies difficulty swallowing. Planned for transfer to floor today, PT and OT, and is being evaluated for transfer to [facility] rehab. Labs reviewed. Hypokalemic, 3.4. Magnesium 2.3. Renal function stable with improved creatinine 1.8 today. H&H 13.2/37.8. Hematuria noted in Asif drained by. Exam (Progress Note) - Constitutional Vitals: Period Temp Pulse Resp BP Sys/Elizabeth Pulse Ox Last 24 Hr 98.1 F-99.7 F 64-94 16-20 100-174/64-109 96-99 Exam: General: Present: No Apparent Distress, Other (pleasant, calm, cooperative) HEENT: Absent: Jaundice. Present: left eye vision change Neck: Present: Midline Trachea Cardiac: Present: Irregularly Regular, Systolic Murmur. Absent: Tachycardia, Bradycardia Lungs: Present: Clear Ascult./Percussion, No Wheeze, Rales, Rhonchi. Absent: Oxygen Neuro: Present: Weakness (left hemiplegia with paralysis left arm), Other (left sided facial droop; speech is improved today). Absent: Resting Tremor, Essential Tremor. Other: reflexes are intact Abdomen: Present: Soft, Active Bowel Sounds, No Masses, No Pulsations/Bruits. Absent: Ascites, Tender, Firm, Distended Skin: Present: Clear, warm, dry. Absent: Rash, Suspicious Lesions, Moist Musculoskeletal: Present: Decreased Range of Motion (due to acute CVA) Extremities: Present: No Clubbing, No Cyanosis, No Edema, Normal Upper Extr. Pulses, Normal Lower Extr. Pulses, Capillary Refill (normal) Result/EKG - Labs CBC & BMP: 11/04/16 04:49 11/04/16 04:49 Lab Results: I have reviewed the past 24 hour labs Labs: Laboratory Results - last 24 hr 11/03/16 11/04/16 11/04/16 15:20 04:49 04:49 WBC 13.2 H RBC 3.97 Hgb 13.2 L Hct 37.8 L MCV 95.2 MCH 33 MCHC 34.9 RDW 12.9 Plt Count 127 L MPV 11.3 Neut % (Auto) 73.7 Lymph % (Auto) 13.4 L [place] % (Auto) 10.1 Eos % (Auto) 1.7 Baso % (Auto) 0.6 Neut # (Auto) 9.7 H Lymph # (Auto) 1.8 [place] # (Auto) 1.3 H Eos # (Auto) 0.2 Baso # (Auto) 0.1 Immature Gran % 0.5 Nucleated RBC % 0.0 Immature Gran # 0.07 Nucleated RBCs # 0.00 Immature Plt Fraction 0.0 Sodium 140 Potassium 3.4 L Chloride 105 Carbon Dioxide 27 Anion Gap 11.4 BUN 11 Creatinine 1.20 GFR Calculation 69 BUN/Creatinine Ratio 9.00 Glucose 110 H Calculated Osmolality 278.4 Calcium 8.4 L Magnesium 2.3 Triglycerides 168 H Cholesterol 194 LDL Cholesterol 122.0 VLDL Cholesterol 33.6 HDL Cholesterol 35 L Heart Disease Risk Ratio 5.54 Urine Color Yellow Urine Appearance Slightly hazy Urine pH 7.0 Ur Specific [place] 1.012 Urine Protein 30 Urine Glucose (UA) Negative Urine Ketones Negative Urine Blood Moderate Urine Nitrate Negative Urine Bilirubin Negative Urine Urobilinogen < 2.0 H Urine Leukocytes Negative Urine RBC 117 Urine WBC 20 Urine Mucus Occasional Ur Culture Indicated? Results to follow - Diagnostic Findings Procedure: Ultrasound: image reviewed by me, report reviewed by me - EKG EKG results: interpreted by me, no acute changes EKG shows: atrial fibrillation Quality Measures - Stroke Onset of Symptoms Date: 11/02/16 Mary Guerrero Randall Scott, MD, personally performed the services described in this documentation, ascribed by Jody Mcdonald RN in my presence, and it is both accurate and complete 137 .
--- NOTE | 2016-11-04 13:46 | CT Report ---
Indication: Right-sided stroke, probable right MCA thrombus Comparison: Prior MRI brain 11/03/[address] head 11/02/2016 Technique: Serial axial tomographic images of the brain and neck are obtained without the use of intravenous contrast. Then, following the IV administration of intravenous contrast, axial tomographic images of the brain and neck are obtained utilizing an angiogram protocol. Multiplanar reformatted images are obtained and reviewed. 3-D/MIP images of the neck and intracranial vasculature were created at a separate workstation and submitted for review. The total DLP is 1404 mGy*cm. Dose reduction: This CT exam was performed using one or more of the following dose reduction techniques: Automated exposure control, automated adjustment of the mA and/or KV according to patient size, or use of iterative reconstruction technique. Findings: CTA HEAD: Hypodensity within the right basal ganglia and right frontotemporal lobes is most compatible with MCA distribution infarct as noted on prior MRI imaging. There is abrupt termination of contrast enhancement within the distal right MCA branches (axial image [id number]), compatible with arterial thrombus. Otherwise, the anterior circulation demonstrates no aneurysm, AVM or occlusion. Intradural vertebral arteries and basilar artery appear patent. Basilar termination appears unremarkable. A prominent right sided posterior communicating artery and hypoplastic right P1 segment are suspected but not well visualized due to contrast bolus timing. Otherwise, the posterior circulation demonstrates no aneurysm, AVM or occlusion. The midline structures are nondisplaced. There is no evidence of hydrocephalus. There is no evidence of acute intracranial hemorrhage. The herring-white matter differentiation is otherwise grossly maintained. The visualized paranasal sinuses, mastoid air cells and middle ear cavities are clear. The included orbits are intact. The visualized osseous structures and overlying soft tissues of the skull and face demonstrate no acute abnormality. CTA NECK: There is a three-vessel arch. There is motion which limits evaluation and no suggestion of significant stenosis at the great vessel origins. Bilateral vertebral arteries appear patent throughout their course in the neck. The right vertebral artery is dominant. Both subclavian arteries, as visualized, appear within normal limits. Portions of the right subclavian artery are poorly evaluated due to adjacent dense contrast causing streak artifact. Right common carotid artery is patent with minimal atherosclerotic plaque. There is circumferential mixed atherosclerotic plaque at the right carotid bifurcation causing mild (30-35%) luminal stenosis. The external carotid artery and branches are widely patent. The right internal carotid artery measures 4.8 mm diameter. Left common carotid artery is patent with no significant atherosclerotic plaque. There is circumferential mixed calcified and noncalcified atherosclerotic plaque at the proximal left internal carotid artery causing severe (70-80%) luminal stenosis best seen on axial image [id number], coronal image 100 and sagittal image 109. External carotid artery also demonstrates mild narrowing but the distal branches appear otherwise widely patent. The left internal carotid artery measures 4.6 mm diameter. The osseous structures of the cervical spine demonstrate no acute abnormality. Multilevel degenerative changes throughout the cervical spine are noted with endplate sclerosis and facet arthropathy. Grade 1 anterolisthesis of C4 relative to C5 with partial uncovering of the posterior disc is noted. No suspicious osseous or soft tissue lesions are identified. The visualized soft tissues of the neck demonstrate no acute abnormality. No abnormal enhancing lesions are identified within the neck. There is no adenopathy. 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 The distal termination is not included however in the [id number]. The visualized lung apices demonstrate no acute abnormality. Diffuse centrilobular emphysematous changes throughout the visualized upper lungs is noted. Direct NASCET criteria utilized for this study. IMPRESSION: Right MCA distribution infarct with lack of opacification of the distal right MCA branches consistent with MCA thrombus. No other evidence of intracranial vascular abnormality. Mild focal hypodensity within the right basal ganglia and frontotemporal lobes related to evolutionary changes within the area of acute infarct. No midline shift. Severe left ICA stenosis and mild right ICA stenosis with mixed atherosclerotic plaque as detailed above. PROCEDURE INTERPRETED AT [facility] DEPARTMENT OF RADIOLOGY Final Report Signed by: Michael Devries
[2016-11-04] MEDS: CARVEDILOL 12.5 MG TABLET PO SCH (21:27)
[2016-11-05] MEDS: DEXTROSE 5% NACL 0.45% 1,000 ML IV SCH ×2 (03:00→11:03)
[2016-11-05] MEDS: DILTIAZEM INJ 100 MG in SODIUM CHLORIDE 0.9% 100 ML IV SCH (04:20)
[2016-11-05] MEDS: LEVOTHYROXINE 150 MCG TABLET PO SCH (06:20)
[2016-11-05 06:56] LABS: Basophils # 0.1 10*3/uL (0.0-0.2); Basophils % 0.5 % (0.0-0.8); Eosinophils # 0.2 10*3/uL (0.0-0.87); Hematocrit 34.6 VOL% (42.0-52.0); Hemoglobin 12.3 GM/DL (14.0-18.0); Immature Granulocytes % 0.4 %; Immature Granulocytes Absolute 0.04 #; Lymphocytes # 1.9 10*3/uL (1.4-4.0); Lymphocytes % 18.7 % (21.2-54.2); Mean Corpuscular HGB Conc 35.5 GM/DL (32-36); Mean Corpuscular Hemoglobin 33 PG (27-34); Mean Platelet Volume 11.1 FL (9.6-12.0); Monocytes % 10.1 % (1.7-12.7); Neutrophils # 6.9 10*3/uL (1.4-7.4); Neutrophils % 68.3 % (38.7-73.9); Platelet Count 130 T/CUMM (130-400); Red Blood Count 3.68 MC/CUMM (3.8-5.5); Red Cell Distribution Width 12.6 % (9.3-17.3); White Blood Count 10.1 T/CUMM (4-12)
[2016-11-05 07:20] LABS: Calcium 8.2 MG/DL (8.5-10.1); Magnesium 2.2 MG/DL (1.8-2.4); Osmolality,Calculated 279.4 MOS/KG (273-304); Potassium 3.3 MMOL/L (3.5-5.1)
--- NOTE | 2016-11-05 08:54 | Discharge Summary ---
Hospital Course - Hospital Course Hospital Course: Patient came in with a stroke involving the entire left side of his body. He apparently got off his Coumadin a while back and in atrial fibrillation which caused this. He has been seen by cardiology and neurology. We are going to transfer him today to come in a rehab as he is stable and he needs some physical therapy and occupational therapy. He has been Thee appropriate medications and will discharge today. Patient is cognitive and voices understanding. Please see results of all of his test. I do appreciate neurology on this case Diagnosis - Discharge Diagnosis (1) Atrial fibrillation Status: Acute (2) Cerebrovascular accident Status: Acute (3) Cardiomyopathy Status: Chronic (4) Chronic atrial fibrillation Status: Chronic (5) Hyperlipidemia Status: Chronic (6) Hypertension Status: Chronic (7) Hypothyroidism Status: Chronic (8) Fever Status: Acute Specialty Discharge - Follow Up or Referrals Follow up with: Darion Hernandez MD [Physician] - (2 weeks post discharge from rehab ) Stas Cui DO [Primary Care Provider] - (2 weeks post d/c from rehab ) Discharge Plan - Discharge Data Disposition: Disch/Xfer-Ip Rehab Fac Condition at Discharge: Stable Discharge Diet: other (see orders an dper speech therapy) Activity: as per physical therapy Hygiene: no restrictions Weight Bearing at Discharge: other (per therapy) - Discharge Medications New Apixaban [Eliquis] 5 mg PO BID tablet Aspirin Tab 325 mg PO DIRECTED tablet Baclofen Tab [Lioresal] 10 mg PO BID tablet Diltiazem Cd Cap [Cardizem CD] 120 mg PO DAILY capsule Docusate Sodium Liquid [Colace Liquid] 100 mg PO BID Ondansetron Inj [Zofran Inj] 4 mg IV Q6H PRN vial PRN Reason: Nausea/Vomiting Pantoprazole Inj [Protonix Inj] 40 mg IV DAILY vial Potassium Chloride Liquid 20 meq PO DAILY Promethazine Supp [Phenergan Supp] 12.5 mg RECTAL Q6H PRN supp PRN Reason: Nausea/Vomiting Carvedilol [Coreg] 12.5 mg PO BID tablet Ondansetron Inj [Zofran Inj] 4 mg IV Q6H PRN vial PRN Reason: Nausea/Vomiting Sertraline [Zoloft] 50 mg PO BEDTIME tablet Continue Levothyroxine Tab [Synthroid Tab] 150 mcg PO DAILY@0700 Furosemide Tab [Lasix Tab] 10 mg PO DAILY Atorvastatin [Lipitor] 20 mg PO DAILY Enalapril Tab [Vasotec Tab] 2.5 mg PO BID Discontinued Carvedilol [Coreg] 6.25 mg PO BID Aspirin 81 mg PO DAILY Diltiazem Cd Cap [Cardizem CD] 240 mg PO DAILY - Follow Up or Referral Follow Up: Stas Cui DO [Primary Care Provider] - (2 weeks post d/c from rehab ) Darion Hernandez MD [Physician] - (2 weeks post discharge from rehab ) - Forms/Instructions Instructions: Atrial Fibrillation (DC), Hemorrhagic Stroke (DC), Chronic Hypertension (DC), Self Care Measures After a Stroke (DC) Exam - Constitutional Vitals: Period Temp Pulse Resp BP Sys/Elizabeth Pulse Ox Last 24 Hr 88 F-99.6 F - 127-159/61-107 95-100 Discharge Results Procedures and tests throughout hospitalization: Pending Orders 11/03/16 Urine Culture Routine Labs on day of discharge: Labs from last 24 hours 11/05/16 11/05/16 11/02/16 06:08 06:08 21:28 WBC 10.1 RBC 3.68 L Hgb 12.3 L Hct 34.6 L MCV 94.0 MCH 33 MCHC 35.5 RDW 12.6 Plt Count 130 MPV 11.1 Neut % (Auto) 68.3 Lymph % (Auto) 18.7 L [place] % (Auto) 10.1 Eos % (Auto) 2.0 Baso % (Auto) 0.5 Neut # (Auto) 6.9 Lymph # (Auto) 1.9 [place] # (Auto) 1.0 H Eos # (Auto) 0.2 Baso # (Auto) 0.1 Immature Gran % 0.4 Nucleated RBC % 0.0 Immature Gran # 0.04 Nucleated RBCs # 0.00 Immature Plt Fraction 0.0 Sodium 140 Potassium 3.3 L Chloride 102 Carbon Dioxide 31 Anion Gap 10.3 BUN 15 Creatinine 1.30 GFR Calculation 63 BUN/Creatinine Ratio 11.00 Glucose 107 H POC Glucose 149 H Calculated Osmolality 279.4 Calcium 8.2 L Magnesium 2.2 Preliminary micro results at discharge 11/03/16 Unknown Urine Culture - Preliminary Urine,Catheterized No Growth at 12 hours. DS: Provider Date of admission: 11/03/16 00:02 Primary care physician: Stas Cui DO Attending physician on admission: Stas Cui DO Consults: 11/03/16 00:02 Consult to Case Mgmt/Social Srvs [CONS] Routine Reason for Case Mgmt/Social Srvs: Discharge Planning 11/03/16 07:40 Consult to Physician [CONS] Routine Comment: Afib Consulting Provider: Darion Hernandez Consulting Provider Notified: Yes Consult to Specialist Group: Cardiology When should Consulting Provider be notified: Now Person Notified: BERNARDO Date Notified: 11/03/16 Time Notified: 07:45 11/03/16 07:41 Consult to Physician [CONS] Routine Comment: cva Consulting Provider: Amilcar Munoz Consulting Provider Notified: Yes Consult to Specialist Group: Neurology When should Consulting Provider be notified: Now Person Notified: JOAQUÍN Date Notified: 11/03/16 Time Notified: 09:00 11/03/16 15:25 PT [Consult to Physical Therapy] [CONS] Routine Reason for Physical Therapy: Evaluate and Treat 11/03/16 15:26 OT [Consult to Occupational Therapy] [CONS] Routine Reason for Occupational Therapy: Evaluate and Treat Start Therapy: Tomorrow 11/03/16 15:28 Consult to Case Mgmt/Social Srvs [CONS] Routine Reason for Case Mgmt/Social Srvs: Rehab Consult Comment: Navin Aranda placement 11/05/16 07:44 Consult to Speech Therapy [CONS] Routine Reason for Speech Therapy: Evaluate and Treat Discharging clinician: Stas Cui DO
--- NOTE | 2016-11-05 08:55 | Neurology Progress Note ---
Neurology - PN : Subjective Interval history: Patient seems to be doing better. CTA report noted. Asymptomatic left ICA stenosis. Okay to transfer to [facility] today. Exam (Progress Note) - Constitutional Vitals: Period Temp Pulse Resp BP Sys/Elizabeth Pulse Ox Last 24 Hr 88 F-99.6 F 17-20 127-159/61-107 95-100 Exam: GENERAL: Patient is in no acute distress. NECK: Neck is supple. There is no JVD. No carotid bruits present. No thyroid masses. CVS: First and second heart sounds are normal. There is no S3 present. Regular rate and rhythm. RESPIRATORY: Lungs are clear to auscultation without any rales or rhonchi. ABDOMEN: Soft and non-tender. Bowel sounds are present. There is no hepatosplenomegaly. EXT: There is no palpable edema. Peripheral pulses are present. Skin: No rashes Central Nervous system: General: Alert, awake and Oriented x 3 Speech: Fluent Comprehension: Intact and normal Facial expressions: Normal Cranial Nerves: CN1/Olfactory: Normal CN II/ Optic: Normal, Visual Foley left homonymous hemianopia CN III, and : AGUSTO & EOMI CN V: Normal & intact CN VII: Left central facial weak CNVIII: Normal CN XI/X/XI/XII: Intact and Normal Motor: Bulk and Tone is normal. Strength in the right 5/5 Strength in the left upper extremity 1-2/5 with some spasticity and left lower extreme2-3/5 Sensory: Decreased for all the modalities of PP, LT and temp sense Reflexes: 1+ and symmetrical Cerebellar function: Normal finger to nose and heel to shukla testing in the right) and the left. Toes: Left toe is upgoing Gait: Not tested at this time Results - Labs CBC & BMP: 11/05/16 06:08 11/05/16 06:08 Assessment and Plan (1) Acute CVA (cerebrovascular accident) Status: Acute Assessment and plan: Stop Lovenox Eliquis 5 mg twice daily Change aspirin to every other day Okay to go to rehab Current Visit: Yes Quality Measures - Stroke Onset of Symptoms Date: 11/02/16 Specialty Discharge - Follow Up or Referrals
[2016-11-05] MEDS ORDERED: APIXABAN 5 MG TABLET PO SCH (09:00)
[2016-11-05] MEDS ORDERED: ROSUVASTATIN 20 MG TABLET PO SCH (09:00)
[2016-11-05] MEDS ORDERED: DILTIAZEM CD 120 MG CAPSULE PO SCH (09:00)
[2016-11-05] MEDS: DOCUSATE SODIUM 100 MG/10 ML UDCUP PO SCH (09:36)
[2016-11-05] MEDS: PANTOPRAZOLE 40 MG VIAL IV SCH (09:37)
[2016-11-05] MEDS: BACLOFEN 10 MG TABLET PO SCH (09:37)
[2016-11-05] MEDS: POTASSIUM CHLORIDE 20 MEQ/15 ML UDCUP PO SCH (09:38)
[2016-11-05] MEDS: FUROSEMIDE 20 MG TABLET PO SCH (09:38)
[2016-11-05] MEDS: CARVEDILOL 12.5 MG TABLET PO SCH (09:38)
[2016-11-05] MEDS: ENALAPRIL 2.5 MG TABLET PO SCH (09:38)
--- NOTE | 2016-11-05 09:46 | Cardiology Progress Note ---
Assessment and Plan - Time spent with patient Time spent with patient: Less than 30 minutes (1) Hypertension Status: Chronic Current Visit: Yes (2) Chronic atrial fibrillation Status: Chronic Current Visit: Yes (3) Hyperlipidemia Status: Chronic Current Visit: Yes (4) Acute CVA (cerebrovascular accident) Status: Acute Current Visit: Yes Cardiology - PN: Subj Interval history: Patient has no complaints today he will be being discharged later. I saw and examined and discussed with him. I encouraged him not to stop his anticoagulants in the future. He is previously been on warfarin for years but stopped sometime back. He has a dense left hemiplegia. Exam (Progress Note) - Constitutional Vitals: Period Temp Pulse Resp BP Sys/Elizabeth Pulse Ox Last 24 Hr 88 F-99.6 F 17- 127-159/61-89 95-100 General appearance: normal weight - Eye Eye exam: Present: EOMI Pupils: Present: AGUSTO - Respiratory Respiratory exam: Present: clear to auscultation bilaterally - Cardiovascular Cardiovascular exam: Present: irregular rhythm - Neurological Exam Neurological exam: Present: other (Dense left hemiplegia including left facial droop. He has mild dysarthria. He is unable to get any movement from his left arm or his left leg or foot and hand when I examined him) Result/EKG - Labs CBC & BMP: 11/05/16 06:08 11/05/16 06:08 Labs: Laboratory Results - last 24 hr 11/02/16 11/05/16 11/05/16 21:28 06:08 06:08 WBC 10.1 RBC 3.68 L Hgb 12.3 L Hct 34.6 L MCV 94.0 MCH 33 MCHC 35.5 RDW 12.6 Plt Count 130 MPV 11.1 Neut % (Auto) 68.3 Lymph % (Auto) 18.7 L [place] % (Auto) 10.1 Eos % (Auto) 2.0 Baso % (Auto) 0.5 Neut # (Auto) 6.9 Lymph # (Auto) 1.9 [place] # (Auto) 1.0 H Eos # (Auto) 0.2 Baso # (Auto) 0.1 Immature Gran % 0.4 Nucleated RBC % 0.0 Immature Gran # 0.04 Nucleated RBCs # 0.00 Immature Plt Fraction 0.0 Sodium 140 Potassium 3.3 L Chloride 102 Carbon Dioxide 31 Anion Gap 10.3 BUN 15 Creatinine 1.30 GFR Calculation 63 BUN/Creatinine Ratio 11.00 Glucose 107 H POC Glucose 149 H Calculated Osmolality 279.4 Calcium 8.2 L Magnesium 2.2 Quality Measures - Stroke Onset of Symptoms Date: 11/02/16 Specialty Discharge - Follow Up or Referrals Follow up with: Darion Hernandez MD [Physician] - (2 weeks post discharge from rehab ) Stas Cui DO [Primary Care Provider] - (2 weeks post d/c from rehab )
[2016-11-05 12:27] VITALS: BP 146/86
[2016-11-05] MEDS ORDERED: ASPIRIN 325 MG TABLET PO SCH (12:30)
[2016-11-05] MEDS ORDERED: SERTRALINE 50 MG TABLET PO SCH (21:00)
== END 2016-11-05 13:55 | DRG 65 ==
LOC: N.ED 21:21 → N.EDINP 11-03 00:29 → N.ICU 11-03 00:32 → N.5E 11-04 15:25
PROVIDERS: ADMIT Family Medicine; ATTEND Family Medicine

== ENCOUNTER 2016-11-10 07:04 | Inpatient (IN) ==
[2016-11-10 07:55] LABS: Basophils # 0.1 10*3/uL (0.0-0.2); Basophils % 0.3 % (0.0-0.8); Eosinophils % 0.1 % (0.00-10.9); Hematocrit 43.5 VOL% (42.0-52.0); Hemoglobin 15.1 GM/DL (14.0-18.0); Immature Granulocytes % 0.8 %; Immature Granulocytes Absolute 0.14 #; Lymphocytes # 1.4 10*3/uL (1.4-4.0); Lymphocytes % 7.7 % (21.2-54.2); Mean Corpuscular HGB Conc 34.7 GM/DL (32-36); Mean Corpuscular Hemoglobin 33 PG (27-34); Mean Platelet Volume 9.9 FL (9.6-12.0); Monocytes # 2.5 10*3/uL (0.11-0.8); Monocytes % 13.6 % (1.7-12.7); Neutrophils % 77.5 % (38.7-73.9); Platelet Count 214 T/CUMM (130-400); Red Blood Count 4.53 MC/CUMM (3.8-5.5); Red Cell Distribution Width 12.7 % (9.3-17.3); White Blood Count 18.1 T/CUMM (4-12)
[2016-11-10] MEDS ORDERED: LEVOFLOXACIN INJ 500 MG in PREMIX 1 EACH IV STA (08:20)
[2016-11-10] MEDS ORDERED: ONDANSETRON 4 MG/2 ML VIAL IV PRN (08:20)
[2016-11-10] MEDS ORDERED: ACETAMINOPHEN 325 MG TABLET PO PRN (08:20)
[2016-11-10 08:22] LABS: Apearance,Urine Turbid (Clear); Bacteria,Urine Occasional /HPF (Few); Mucus,Urine Many /LPF (Occasional); RBC,Urine 73896 /HPF (0-4); Urine Color Red (Yellow); WBC,Urine 1302 /HPF (0-6)
[2016-11-10 08:23] LABS: Bilirubin,Urine Negative (Negative); Blood, Urine Large mg/dL (Negative); Calcium 8.9 MG/DL (8.5-10.1); Glucose,Urine (UA) 50 mg/dL (Negative); Ketones,Urine Negative (Negative); Nitrite,Urine Negative (Negative); Osmolality,Calculated 290.7 MOS/KG (273-304); Potassium 4.6 MMOL/L (3.5-5.1); Protein,Urine >500 MG/DL
--- NOTE | 2016-11-10 08:23 | Emergency Department Note ---
See Guerrero Brittany, am scribing for, and in the presence of, Gavin Cox MD 07:56. Brooke Guerrero Phillip K, MD, personally performed the services described in this documentation, ascribed by Marine Cui in my presence, and it is both accurate and complete 823 . Arrival - Arrival Chief Complaint: Urogenital - Male Stated Complaint: Urogenital - Male ED Nursing Triage Note: Employee was performing in and out cath and pt immediately dumped 650cc of bloody urine. Mode of Arrival: Stretcher Limitations: No Limitations Source: Patient, RN Notes Reviewed Time Seen by Provider: 11/10/16 07:11 - History of Present Illness HPI Narrative: Patient is a 71 y/o white male presenting to the ED via EMS for further evaluation of hematuria that began yesterday. Patient was seen by his Urologist Dr. Eagle this morning and was sent here to have a CT Abdomen/Pelvis without contrast performed. Patient recently had a CVA 9 days ago affecting the L side and was placed on Eliquis therapy. Patient upon arrival had a prince catheter placed and was noted to have drained 650 cc of grossly bloody urine. Irrigation has been initiated. Patient does not have any abdominal pain, chest pain, or SOB. No further complaints. Allergies/Adverse Reactions: Allergies Allergy/AdvReac Type Severity Reaction Status Date / Time No Known Allergies Allergy Verified 11/10/16 07:23 Home Medications: Home Medications Medication Instructions Recorded Confirmed Type Atorvastatin [Lipitor] 20 mg PO DAILY 11/02/16 11/10/16 History Enalapril Tab [Vasotec Tab] 2.5 mg PO BID 11/02/16 11/10/16 History Furosemide Tab [Lasix Tab] 10 mg PO DAILY 11/02/16 11/10/16 History Levothyroxine Tab [Synthroid Tab] 150 mcg PO DAILY@0700 11/02/16 11/10/16 History Apixaban [Eliquis] 5 mg PO BID tablet 11/05/16 11/10/16 Rx Aspirin Tab 325 mg PO QOTHER DAY 11/05/16 11/10/16 History Baclofen Tab [Lioresal] 10 mg PO BID tablet 11/05/16 11/10/16 Rx Carvedilol [Coreg] 12.5 mg PO BID tablet 11/05/16 11/10/16 Rx Diltiazem Cd Cap [Cardizem CD] 120 mg PO DAILY capsule 11/05/16 11/10/16 Rx Docusate Sodium Liquid [Colace 100 mg PO BID 11/05/16 11/10/16 Rx Liquid] Potassium Chloride Liquid 20 meq PO DAILY 11/05/16 11/10/16 Rx Promethazine Supp [Phenergan Supp] 12.5 mg RECTAL Q6H PRN supp 11/05/16 Rx Sertraline [Zoloft] 50 mg PO BEDTIME tablet 11/05/16 11/10/16 Rx Dutasteride [Avodart] 0.5 mg PO DAILY 11/10/16 11/10/16 History Tamsulosin [Flomax] 0.4 mg PO BID 11/10/16 11/10/16 History Review of System - Review of System 12 point system: reviewed and no additional remarkable complaints except as stated - Review of System Constitutional: Absent: chills, fever Eyes: Absent: vision change Head/Ears/Nose/Throat: Absent: nasal drainage, sore throat Respiratory: Absent: respiratory distress Cardiovascular: Absent: chest pain Gastrointestinal: Absent: abdominal pain, nausea, vomiting, diarrhea, constipation, melena, hematochezia Genitourinary male: Present: hematuria. Absent: urgency, dysuria, frequency Musculoskeletal: Absent: arm pain, back pain, leg pain, neck pain Skin: Absent: rash Neurological: Absent: headache Psychiatric: Absent: anxiety, depression Hematological/Lymphatic: Absent: easy bleeding, easy bruising Medical,Surgical,& Family Hx - Medical History Cardio: History of: Cardiac Dysrhythmia (Atrial fibrillation), CHF, Hypertension , Cardiovascular Problems ("LEAKING VALVE") No history of: CAD, Pacemaker, PVD Psychological: History of: Anxiety Disorders, Depression Neurology: History of: Cerebrovascular Accident (2016) No history of: Dementia, Seizures, TIA HEENT: History of: Eye Problem (LEFT EYE DEVIATION SINCE CVA 10/2016) Endocrine: History of: Dyslipidemia, Thyroid Disorder No history of: Diabetes Mellitus (IDDM), Diabetes Mellitus (NIDDM) Respiratory: History of: Asthma (USES IHALER), COPD, Respiratory Problems (sob, undiagnosed) No history of: Pulmonary Embolism Renal: No history of: Dialysis, Renal Problems Genitourinary: History of: Bladder Problem (DIFFICULTY URINATING), Problems ( Had a problem with bleeding some years ago and has none since) Gastrointestinal: History of: GI Problems (FREQUENT CONSTIPATION, TAKES LAXATIVES) No history of: GERD, Hepatitis Musculoskeletal: History of: Back/Neck Problems (BACK TROUBLE), Musculoskeletal Problems (HIP TROUBLE, BROKEN LEG WHEN YOUNGER) Hematology: History of: Blood Disorders (BLOOD CLOTS YEARS AGO) No history of: Anemia, Blood Transfusion Reaction, Bleeding Problems, Clotting Problems Other: No history of: Cancer, HIV - Surgical History Cardiac Surgeries: Patient Denies: Cardiac Catheterization, Carotid Endarterectomy HEENT Surgeries: Surgical HX of: Thyroid Surgery (TAKES SYNTHROID) Patient denies: Carotid Endarterectomy - Family History Family History: Reports;: Family Cancer, Family Diabetes, Family Heart Disease, Family Hypertension, Family Stroke - Social History Smoking Status: Former smoker Frequency of Alcohol Use: None Type of Drug Use: None Exam Vital Signs: Vital Signs Temperature 97.0 F L 11/10/16 11:31 Pulse Rate 71 11/10/16 11:31 Respiratory Rate 20 11/10/16 11:31 Blood Pressure 111/76 11/10/16 11:31 O2 Sat by Pulse Oximetry 93 L 11/10/16 11:31 - General General appearance: alert, in no apparent distress - Head Head exam: Present: atraumatic, normocephalic - Eye Eye exam: Present: normal appearance, PERRL, EOMI - ENT ENT exam: Present: normal exam, normal oropharynx - Neck Neck exam: Present: normal inspection, full ROM, trachea midline - Chest Chest inspection: Present: normal inspection, symmetric chest wall rise - Respiratory Respiratory exam: Present: normal lung sounds bilaterally. Absent: respiratory distress - Cardiovascular Cardiovascular exam: Present: regular rate, normal rhythm, normal heart sounds. Absent: murmur, rubs, gallop - Abdominal Exam Abdominal exam: Present: soft, normal bowel sounds. Absent: distention, tenderness - exam: Present: other (grossly bloody urine draining into prince catheter tubing and drainage bag) - Extremities Exam Extremities exam: Absent: normal inspection (L hemiparesis) - Back Exam Back exam: Present: normal inspection - Neurological Exam Neurological exam: Present: alert, oriented X3, motor sensory deficit (L hemiparesis). Absent: CN II-XII intact (L facial droop) - Psychiatric Psychiatric exam: Present: normal affect, normal mood - Skin Skin exam: Present: warm, dry Course Course Narrative: Patient discussed with Dr. Cui. Consult urology Results - Labs CBC & BMP: 11/10/16 07:44 11/10/16 07:44 Lab Results: I have reviewed the patients labs Labs: Laboratory Tests 11/10/16 07:44 WBC 18.1 H RBC 4.53 Hgb 15.1 Hct 43.5 Plt Count 214 Neut % (Auto) 77.5 H Lymph % (Auto) 7.7 L [place] % (Auto) 13.6 H Neut # (Auto) 14.0 H [place] # (Auto) 2.5 H Laboratory Tests 11/10/16 11/10/16 07:44 07:44 Sodium 138 Potassium 4.6 Chloride 106 Carbon Dioxide 25 BUN 47 H Creatinine 2.80 H Glucose 171 H Urine Color Red Urine Appearance Turbid Urine pH 9.0 H Ur Specific [place] 1.020 Urine Protein >500 Urine Glucose (UA) 50 Urine Ketones Negative Urine Blood Large Urine Nitrate Negative Urine Bilirubin Negative Urine Urobilinogen 0.2 Urine Leukocytes Small H Urine RBC 00161 Urine WBC 1302 Urine Bacteria Occasional Urine Mucus Many Laboratory Tests 11/10/16 07:44 Neut # (Auto) 14.0 H Lymph # (Auto) 1.4 [place] # (Auto) 2.5 H Eos # (Auto) 0.0 Baso # (Auto) 0.1 Immature Gran % 0.8 Nucleated RBC % 0.0 Immature Gran # 0.14 Nucleated RBCs # 0.00 Hypochromasia 1+ - Diagnostic Findings Procedure: CT Abdomen and Pelvis: report reviewed by me (1. Prince catheter demonstrated however the exact positioning of the catheter could be within the region of the prosthetic urethra not otherwise clarified as there is a double density that could possibly represent a bladder or bladder diverticulum present. CT cystogram is recommended. These findings were discussed with Dr. Cox. 2. Vascular calcification aorta iliac vessels 3. Fatty infiltration of the pancreas 4. Distended gallbladder without stones 5. Mild dilatation of the left renal collecting system without obvious stones with a cyst on the lower pole the left kidney measuring approximately 13.[address]: report reviewed by me (Pelvis CT: 1. Bilateral inguinal canal hernias are present 2. Prince catheter in place with some bladder wall thickening and diverticula and possibly some minimal extravasation of contrast. Underlying neoplasm cannot be excluded. There is suggestion of some hemorrhage present within the region of the bladder with double density and urine also present. Walled off abscess would also be considered in the differential however this seems less likely but with the history of a straight cathing the patient multiple times possibility exist.) Disposition Clinical Impression: Hematuria, Possible bladder diverticulum Case discussed with: patient Disposition: Still a Patient Condition: Guarded
[2016-11-10 08:24] LABS: Urine Urobilinogen 0.2 EU/DL (0.2-1.0)
--- NOTE | 2016-11-10 08:44 | CT Report ---
Exam: CT abdomen pelvis wo con Date: 11/10/2016 7:25 AM Comparison: None Indication: Bleeding after Asif catheter placement Total DLP: 700.5 mGy*cm Technical: No oral contrast was administered. Images were obtained from the lung bases to the iliac crest continuation through the pelvis without contrast administration with axial sagittal coronal imaging available for review. Dose reduction was performed with decreasing kv and mA and automated exposure Findings: Lung bases: Mild cardiac enlargement. Atelectatic change present in the basilar regions and/or infiltrate in the left base. Right base is clear. Liver and Spleen: Unremarkable Gallbladder and Pancreas: Gallbladder is distended without obvious stones. The pancreas is demonstrated with fatty infiltration Adrenals: Unremarkable Kidneys: The right kidney is demonstrated without obvious stones or obstruction. The right ureter is demonstrated without abnormality. The left kidney reveals dilatation left renal collecting system there is a low density cyst in the lower pole the left kidney with no obvious stones in the left kidney the cyst measures 13.8 mm. The left ureter is nondilated are distended Stomach: Incomplete distended with air fluid and debris Retroperitoneum: No enlarged lymph nodes. Aorta and IVC: Atherosclerotic plaque in aorta iliac vessels. The aorta and IVC without contrast or not otherwise evaluated. Bowel and Mesentery: Diverticulosis change present. No obvious evidence of diverticulitis or defined abscess present. Pelvis: Bladder: Incompletely distended with Asif catheter present. A second area of collection measures 4.6 x 7.3 cm. This could possibly represent a bladder diverticulum could represent free fluid in the deep pelvis not otherwise clarified Fluid: Collection described above Lymph nodes: No enlarged lymph nodes. A right sided inguinal hernia is present containing bowel the small calcification present. Pelvic organs: Unremarkable Osseous structures: Degenerative arthritic changes with disc space narrowing at L5-S1. Impression: 1. Asif catheter demonstrated however the exact positioning of the catheter could be within the region of the prosthetic urethra not otherwise clarified as there is a double density that could possibly represent a bladder or bladder diverticulum present. CT cystogram is recommended. These findings were discussed with Dr. Cox. 2. Vascular calcification aorta iliac vessels 3. Fatty infiltration of the pancreas 4. Distended gallbladder without stones 5. Mild dilatation of the left renal collecting system without obvious stones with a cyst on the lower pole the left kidney measuring approximately 13.8 mm PROCEDURE INTERPRETED AT [facility] DEPARTMENT OF RADIOLOGY Final Report Signed by: Dr. Jose Durbin
[2016-11-10 09:07] LABS: Hypochromasia 1+
--- NOTE | 2016-11-10 09:44 | CT Report ---
Exam: CT pelvis w con Date: 11/10/2016 8:40 AM Comparison: None Indication: Gross hematuria abnormal noncontrast study. Total DLP: 323.5 mGy*cm Technical: Images were obtained with 200 cc of contrast administered through the Asif catheter with imaging obtained with axial sagittal and coronal imaging available for review. Dose reduction was performed with decreasing kv and mA and automated exposure Findings: Asif catheter is present. There is irregularity and thickening of the wall surrounding the area of the catheter with air present. There is connection with the collection present posteriorly. Present this represents a bladder diverticulum with irregularity of the bladder wall anteriorly suspected. There is some suggestion of trabeculations present in extension of contrast with fingerlike projections in the anterior collection extending towards the lateral margins and anterior margins render bladder wall thickening not otherwise clarified. Underlying neoplasm can therefore not be excluded with bladder wall thickening and some suggestion of minimal extravasation of contrast along the lateral margins. Impression: 1. Bilateral inguinal canal hernias are present 2. Asif catheter in place with some bladder wall thickening and diverticula and possibly some minimal extravasation of contrast. Underlying neoplasm cannot be excluded. There is suggestion of some hemorrhage present within the region of the bladder with double density and urine also present. Walled off abscess would also be considered in the differential however this seems less likely but with the history of a straight cathing the patient multiple times possibility exist. A direct cystoscopy and urologic consultation is recommended PROCEDURE INTERPRETED AT [facility] DEPARTMENT OF RADIOLOGY Final Report Signed by: Dr. Jose Durbin
[2016-11-10] MEDS ORDERED: LEVOFLOXACIN INJ 100 ML IV ONE (10:32)
[2016-11-10] MEDS: PANTOPRAZOLE 40 MG TABLET PO SCH (12:01)
[2016-11-10] MEDS: DOCUSATE SODIUM 100 MG CAPSULE PO SCH ×2 (12:01→21:07)
--- NOTE | 2016-11-10 13:14 | Event Note ---
I was called to evaluate the patient. Dr. Eagle saw him this morning at [facility]. He was noted to have gross hematuria and be in urinary retention. He had a Asif catheter placed, and he was transferred to the ER at [facility]. He is admitted with Asif catheter in place. Dr. Eagle is recommended stopping anticoagulation. He was having bladder irrigation but had minimal output. CT revealed a large bladder diverticulum that was filling with fluid and not draining. I have told him to stop the bladder irrigation for several hours. He is having hematuria but is draining. Instruct the nurses to irrigate by hand every 4 hours and as needed. Hopefully this will resolve just with drainage. At some point he will likely need a cystoscopy. Would like to hold off until his anticoagulation has cleared. I will see him tomorrow.
--- NOTE | 2016-11-10 14:00 | Family Practice History&Phys ---
Assessment and Plan (1) Hematuria Status: Acute Assessment and plan: 11/10/2016: We will going to get urology involved and they have already been consulted. Has been started on antibiotics. Asif catheter is in place Current Visit: Yes (2) Urinary retention due to benign prostatic hyperplasia Status: Acute Assessment and plan: 11/10/2016: A Asif catheter is in place. Functioning properly Current Visit: No (3) Cardiomyopathy Status: Chronic Assessment and plan: 11/10/2016: Patient is not a candidate for aggressive therapy before going to treat him medically. Are holding off his Eliquis right now Current Visit: No (4) Chronic atrial fibrillation Status: Chronic Assessment and plan: Chronic A. fib with will continue current medications at present include diltiazem and his potassium. He was on Eliquis for holding this for now Current Visit: No History of Present Illness Chief complaint: Hematuria History of present illness: Mr. Miner is a 71 year old male Known to me. He was recently in the hospital after having suffered a fairly severe stroke involving his left side of his body. He did have an MRI which was done which revealed a stroke. Does have a history of hypertension, hypothyroidism hypercholesterolemia as well as chronic atrial fibrillation for which he had refused treatment in the past. Nonetheless at this time we put him on a blood thinner, Eliquis which he has been taking and has subsequently developed significant gonzalez hematuria, which is noted significantly in his Asif catheter. . There is some question is whether this may be an infection, and he does have a elevated white count of about 17,000. He is currently on antibiotics at this time. Does have significant and prominent weakness of the left side secondary to stroke as mentioned. He was recently in a rehab unit and it does not look at this time as though he has improved significantly. WBC count is 18.1, chemistry reveals a creatinine which is slightly high at 2.8 up from 1.5-1 was previously in the hospital a week ago. His blood sugars are grossly normal. Urinalysis reveals numerous red blood cells and occasional bacteria. Today we will get a hold his anticoagulants. Will look at his other medications and make some adjustments accordingly. Will get urology on board today and I believe he is already seen the patient. Home Medications Medication Instructions Recorded Confirmed Type Atorvastatin [Lipitor] 20 mg PO DAILY 11/02/16 11/10/16 History Enalapril Tab [Vasotec Tab] 2.5 mg PO BID 11/02/16 11/10/16 History Furosemide Tab [Lasix Tab] 10 mg PO DAILY 11/02/16 11/10/16 History Levothyroxine Tab [Synthroid Tab] 150 mcg PO DAILY@0700 11/02/16 11/10/16 History Apixaban [Eliquis] 5 mg PO BID tablet 11/05/16 11/10/16 Rx Aspirin Tab 325 mg PO QOTHER DAY 11/05/16 11/10/16 History Baclofen Tab [Lioresal] 10 mg PO BID tablet 11/05/16 11/10/16 Rx Carvedilol [Coreg] 12.5 mg PO BID tablet 11/05/16 11/10/16 Rx Diltiazem Cd Cap [Cardizem CD] 120 mg PO DAILY capsule 11/05/16 11/10/16 Rx Docusate Sodium Liquid [Colace 100 mg PO BID 11/05/16 11/10/16 Rx Liquid] Potassium Chloride Liquid 20 meq PO DAILY 11/05/16 11/10/16 Rx Promethazine Supp [Phenergan Supp] 12.5 mg RECTAL Q6H PRN supp 11/05/16 Rx Sertraline [Zoloft] 50 mg PO BEDTIME tablet 11/05/16 11/10/16 Rx Dutasteride [Avodart] 0.5 mg PO DAILY 11/10/16 11/10/16 History Tamsulosin [Flomax] 0.4 mg PO BID 11/10/16 11/10/16 History Allergies Allergy/AdvReac Type Severity Reaction Status Date / Time No Known Allergies Allergy Verified 11/10/16 07:23 12 point system: reviewed and no additional remarkable complaints except as stated (That mentioned in the history and physical.) - EENT Ears: Absent: ear discharge Nose, mouth and throat: Absent: throat swelling - Cardiovascular Cardiovascular: Absent: orthopnea - Respiratory Respiratory: Absent: wheezing - Gastrointestinal Gastrointestinal: Absent: dysphagia - Genitourinary Genitourinary: Absent: testicular pain Medical,Surgical,& Family Hx - Medical History Cardio: History of: Cardiac Dysrhythmia (Atrial fibrillation), CHF, Hypertension , Cardiovascular Problems ("LEAKING VALVE") No history of: CAD, Pacemaker, PVD Psychological: History of: Anxiety Disorders, Depression Neurology: History of: Cerebrovascular Accident (2016) No history of: Dementia, Seizures, TIA HEENT: History of: Eye Problem (LEFT EYE DEVIATION SINCE CVA 10/2016) Endocrine: History of: Dyslipidemia, Thyroid Disorder No history of: Diabetes Mellitus (IDDM), Diabetes Mellitus (NIDDM) Respiratory: History of: Asthma (USES IHALER), COPD, Respiratory Problems (sob, undiagnosed) No history of: Pulmonary Embolism Renal: No history of: Dialysis, Renal Problems Genitourinary: History of: Bladder Problem (DIFFICULTY URINATING), Problems ( Had a problem with bleeding some years ago and has none since) Gastrointestinal: History of: GI Problems (FREQUENT CONSTIPATION, TAKES LAXATIVES) No history of: GERD, Hepatitis Musculoskeletal: History of: Back/Neck Problems (BACK TROUBLE), Musculoskeletal Problems (HIP TROUBLE, BROKEN LEG WHEN YOUNGER) Hematology: History of: Blood Disorders (BLOOD CLOTS YEARS AGO) No history of: Anemia, Blood Transfusion Reaction, Bleeding Problems, Clotting Problems Other: No history of: Cancer, HIV - Surgical History Cardiac Surgeries: Patient Denies: Cardiac Catheterization, Carotid Endarterectomy HEENT Surgeries: Surgical HX of: Thyroid Surgery (TAKES SYNTHROID) Patient denies: Carotid Endarterectomy - Family History Family History: Reports;: Family Cancer, Family Diabetes, Family Heart Disease, Family Hypertension, Family Stroke - Social History Smoking Status: Former smoker Frequency of Alcohol Use: None Type of Drug Use: None Exam - Constitutional Vitals: Period Temp Pulse Resp BP Sys/Elizabeth Pulse Ox Last 24 Hr 97.0 F-97.9 F 71-132 19-22 87-120/50-76 93-98 Exam: Patient is easily arousable, is alert but slow to talk. No acute distress at this time he does sleep without difficulty. HEENT neck is supple trachea midline Cardiovascular rate is slightly irregular, no gallop or rub Lungs clear except for a few basal rales Abdomen soft nondistended, suit Suprapubic area is nondistended patient does have a Asif catheter in draining some significant blood-tinged urine but there is not gonzalez bleeding at this time Extremities no clubbing cyanosis or edema Results - Labs CBC & BMP: 11/10/16 07:44 11/10/16 07:44 Quality Measures - Stroke Presenting Symptoms: Left hemiparesis Symptom Onset Unknown: Yes
[2016-11-10] MEDS ORDERED: PROMETHAZINE 12.5 MG SUPP RECTAL PRN (14:06)
[2016-11-10] MEDS: DUTASTERIDE 0.5 MG CAPSULE PO SCH (15:13)
[2016-11-10] MEDS: FUROSEMIDE 20 MG TABLET PO SCH (15:13)
[2016-11-10] MEDS: BACLOFEN 10 MG TABLET PO SCH ×2 (15:13→21:06)
[2016-11-10] MEDS: DILTIAZEM CD 120 MG CAPSULE PO SCH (15:13)
[2016-11-10] MEDS: TAMSULOSIN 0.4 MG CAPSULE PO SCH ×2 (15:14→21:07)
[2016-11-10] MEDS: CARVEDILOL 12.5 MG TABLET PO SCH (16:32)
[2016-11-10] MEDS ORDERED: DOCUSATE SODIUM 100 MG/10 ML UDCUP PO SCH (21:00)
[2016-11-10] MEDS: SERTRALINE 50 MG TABLET PO SCH (21:07)
[2016-11-10] MEDS: ENALAPRIL 2.5 MG TABLET PO SCH (21:16)
--- NOTE | 2016-11-11 06:30 | Urology Consultation ---
Assessment and Plan - Time spent with patient Time spent with patient: Less than 30 minutes (1) Hematuria Status: Acute Assessment and plan: Gross hematuria noted with urinary retention. Likely, hemorrhagic cystitis. He could have urothelial carcinoma, and he probably needs endoscopy in the future. At this time, will continue Asif catheter to drainage. His Eliquis is on hold , and his urine is clearing. Treat urinary tract infection. Follow-up urine culture. Current Visit: Yes Qualifiers: Hematuria type: gross Qualified Code(s): R31.0 - Gross hematuria (2) Urinary retention due to benign prostatic hyperplasia Status: Acute Assessment and plan: Make sure the patient is on finasteride 5 mg daily Current Visit: No (3) Acute CVA (cerebrovascular accident) Status: Acute Assessment and plan: Eliquis is on hold. Management per primary care, but agree with holding anticoagulation currently. Current Visit: No (4) Atrial fibrillation Status: Acute Assessment and plan: Agree with rate control, and holding Eliquis due to significant bleeding currently. Thanks for the opportunity to participate in the care of this patient. We will make sure urine culture was sent. Will treat for infection and keep the Asif catheter in place currently. We will hold off continuous irrigation as his bladder diverticulum is not draining well. This may have contributed to significant cystitis. Current Visit: No History of Present Illness - Data of Consult Patient: known to practice within the last 3 years Consult date: 11/10/16 - Consult Narrative History of present illness: Mr. Miner is a 71 year old male patient that is followed by Dr. Eagle. Dr. Eagle had been consulted at a previous hospitalization. He saw him yesterday in [facility]. He was noted to have significant gross hematuria and urinary retention. The patient had been on Eliquis due to atrial fibrillation and recent stroke. He was transferred to this institution for evaluation. He was ultimately admitted to Dr. Cui. He has a Asif catheter in place, and we have been irrigating every 4 hours. Initially was on continuous irrigation, but he did not have any significant return. 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 Upon review of imaging and all records, this was noted back in [address] Eagle perform cystoscopy. He has significant leukocytosis. He reports abdominal pain. Urinalysis demonstrated significant pyuria. CC: Stas See, DO Gross hematuria - Home Medications and Allergies Home Medications: Home Medications Medication Instructions Recorded Confirmed Type Atorvastatin [Lipitor] 20 mg PO DAILY 11/02/16 11/10/16 History Enalapril Tab [Vasotec Tab] 2.5 mg PO BID 11/02/16 11/10/16 History Furosemide Tab [Lasix Tab] 10 mg PO DAILY 11/02/16 11/10/16 History Levothyroxine Tab [Synthroid Tab] 150 mcg PO DAILY@0700 11/02/16 11/10/16 History Apixaban [Eliquis] 5 mg PO BID tablet 11/05/16 11/10/16 Rx Aspirin Tab 325 mg PO QOTHER DAY 11/05/16 11/10/16 History Baclofen Tab [Lioresal] 10 mg PO BID tablet 11/05/16 11/10/16 Rx Carvedilol [Coreg] 12.5 mg PO BID tablet 11/05/16 11/10/16 Rx Diltiazem Cd Cap [Cardizem CD] 120 mg PO DAILY capsule 11/05/16 11/10/16 Rx Docusate Sodium Liquid [Colace 100 mg PO BID 11/05/16 11/10/16 Rx Liquid] Potassium Chloride Liquid 20 meq PO DAILY 11/05/16 11/10/16 Rx Promethazine Supp [Phenergan Supp] 12.5 mg RECTAL Q6H PRN supp 11/05/16 Rx Sertraline [Zoloft] 50 mg PO BEDTIME tablet 11/05/16 11/10/16 Rx Dutasteride [Avodart] 0.5 mg PO DAILY 11/10/16 11/10/16 History Tamsulosin [Flomax] 0.4 mg PO BID 11/10/16 11/10/16 History Allergies/Adverse Reactions: Allergies Allergy/AdvReac Type Severity Reaction Status Date / Time No Known Allergies Allergy Verified 11/10/16 07:23 Medical,Surgical,& Family Hx - Medical History Cardio: History of: Cardiac Dysrhythmia (Atrial fibrillation), CHF, Hypertension , Cardiovascular Problems ("LEAKING VALVE") No history of: CAD, Pacemaker, PVD Psychological: History of: Anxiety Disorders, Depression Neurology: History of: Cerebrovascular Accident (2016) No history of: Dementia, Seizures, TIA HEENT: History of: Eye Problem (LEFT EYE DEVIATION SINCE CVA 10/2016) Endocrine: History of: Dyslipidemia, Thyroid Disorder No history of: Diabetes Mellitus (IDDM), Diabetes Mellitus (NIDDM) Respiratory: History of: Asthma (USES IHALER), COPD, Respiratory Problems (sob, undiagnosed) No history of: Pulmonary Embolism Renal: No history of: Dialysis, Renal Problems Genitourinary: History of: Bladder Problem (DIFFICULTY URINATING), Problems ( Had a problem with bleeding some years ago and has none since) Gastrointestinal: History of: GI Problems (FREQUENT CONSTIPATION, TAKES LAXATIVES) No history of: GERD, Hepatitis Musculoskeletal: History of: Back/Neck Problems (BACK TROUBLE), Musculoskeletal Problems (HIP TROUBLE, BROKEN LEG WHEN YOUNGER) Hematology: History of: Blood Disorders (BLOOD CLOTS YEARS AGO) No history of: Anemia, Blood Transfusion Reaction, Bleeding Problems, Clotting Problems Other: No history of: Cancer, HIV - Surgical History Cardiac Surgeries: Patient Denies: Cardiac Catheterization, Carotid Endarterectomy HEENT Surgeries: Surgical HX of: Thyroid Surgery (TAKES SYNTHROID) Patient denies: Carotid Endarterectomy - Family History Family History: Reports;: Family Cancer, Family Diabetes, Family Heart Disease, Family Hypertension, Family Stroke - Social History Smoking Status: Former smoker Frequency of Alcohol Use: None Type of Drug Use: None 12 point system: reviewed and no additional remarkable complaints except as stated - Constitutional Constitutional: Present: anorexia, fatigue. Absent: chills, fever(s) - Cardiovascular Cardiovascular: Absent: chest pain at rest - Gastrointestinal Gastrointestinal: Absent: abdominal pain - Genitourinary Genitourinary: Present: difficulty urinating, hematuria - Neurological Neurological: Present: focal weakness, paresthesias - Hematologic/Lymphatic Hematologic/Lymphatic: Present: easy bleeding, easy bruising, other (On Eliquis) Exam - Constitutional Vitals: Period Temp Pulse Resp BP Sys/Elizabeth Pulse Ox Last 24 Hr 97.0 F-98.3 F 71-132 18-22 87-120/48-76 93-98 General appearance: no acute distress - Head Head exam: Present: atraumatic - Eye Eye exam: Absent: scleral icterus - ENT ENT exam: Present: normal oropharynx - Neck Neck exam: Present: normal inspection - Respiratory Respiratory exam: Present: decreased breath sounds (Bilateral bases). Absent: stridor, wheezes - Cardiovascular Cardiovascular exam: Present: irregular rhythm. Absent: JVD - GI/Abdominal GI/Abdominal exam: Present: soft. Absent: tenderness, rebound - Genitourinary Genitourinary: penis with no lesions or discharge, other (Asif catheter with gross hematuria, small clots in tubing.) - Extremities Exam Extremities exam: Present: normal capillary refill - Back Exam Back exam: Absent: CVA tenderness (L), CVA tenderness (R) - Neurological Exam Neurological exam: Present: alert, oriented X3 - Psychiatric Psychiatric exam: Present: normal affect, normal mood - Skin Skin exam: Present: warm, dry Results - Labs CBC & BMP: 11/10/16 07:44 11/10/16 07:44 Lab Results: I have reviewed the past 24 hour labs - Diagnostic Findings Procedure: CT Abdomen and Pelvis: image reviewed by me, report reviewed by me
[2016-11-11] MEDS: DILTIAZEM CD 120 MG CAPSULE PO SCH (08:28)
[2016-11-11] MEDS: ENALAPRIL 2.5 MG TABLET PO SCH ×2 (08:29→21:00)
[2016-11-11] MEDS: DUTASTERIDE 0.5 MG CAPSULE PO SCH (08:29)
[2016-11-11] MEDS: DOCUSATE SODIUM 100 MG CAPSULE PO SCH ×2 (08:29→20:57)
[2016-11-11] MEDS: PANTOPRAZOLE 40 MG TABLET PO SCH (08:29)
[2016-11-11] MEDS: LEVOTHYROXINE 150 MCG TABLET PO SCH (08:29)
[2016-11-11] MEDS: FUROSEMIDE 20 MG TABLET PO SCH (08:29)
[2016-11-11] MEDS: ATORVASTATIN 20 MG TABLET PO SCH (08:29)
[2016-11-11] MEDS: BACLOFEN 10 MG TABLET PO SCH ×2 (08:29→20:57)
[2016-11-11] MEDS: CARVEDILOL 12.5 MG TABLET PO SCH ×2 (08:30→16:34)
[2016-11-11] MEDS: POTASSIUM CHLORIDE 20 MEQ/15 ML UDCUP PO SCH (08:30)
[2016-11-11] MEDS: TAMSULOSIN 0.4 MG CAPSULE PO SCH ×2 (09:05→20:57)
--- NOTE | 2016-11-11 10:14 | Family Practice Progress Note ---
Family Practice - PN: Subj Interval history: Patient seen, is asleep but does arouse. His urine output is clearing but with still a little blood-tinged. Asif cath is in place. We do have a moment antibiotics and I am getting pharmacy to adjust the doses based on his creatinine clearance. Recent stroke history. We will going to place him back on his low-dose aspirin and I am going to put him on SCD hose. He is unable to move his left side for the most part including upper and lower extremities. If all right tomorrow we will try to move back to rehab. I will discuss with urologist if there is a problem with this. Will check labs in a.m. Exam (Progress Note) - Constitutional Vitals: Period Temp Pulse Resp BP Sys/Elizabeth Pulse Ox Last 24 Hr 97.0 F-98.3 F 71-196 18-21 94-120/48-76 92-98 Exam: Patient is easily arousable, is alert but slow to talk. Not moving left side. HEENT neck is supple trachea midline Cardiovascular rate is slightly irregular, no gallop or rub Lungs clear except for a few basal rales Abdomen soft nondistended, suit Suprapubic area is nondistended patient does have a Asif catheter in draining, urine is clearing some Extremities no clubbing cyanosis or edema Results - Labs CBC & BMP: 11/10/16 07:44 11/10/16 07:44 Assessment and Plan (1) Hematuria Status: Acute Assessment and plan: 11/10/2016: We will going to get urology involved and they have already been consulted. Has been started on antibiotics. Asif catheter is in place 11/11/2016 urine is slowly clearing. We do have him on antibiotic Current Visit: Yes Qualifiers: Hematuria type: gross Qualified Code(s): R31.0 - Gross hematuria (2) Urinary retention due to benign prostatic hyperplasia Status: Acute Assessment and plan: 11/10/2016: A Asif catheter is in place. Functioning properly Current Visit: No (3) Cardiomyopathy Status: Chronic Assessment and plan: 11/10/2016: Patient is not a candidate for aggressive therapy before going to treat him medically. Are holding off his Eliquis right now Current Visit: No (4) Chronic atrial fibrillation Status: Chronic Assessment and plan: Chronic A. fib with will continue current medications at present include diltiazem and his potassium. He was on Eliquis for holding this for now Current Visit: No Quality Measures - Stroke Presenting Symptoms: Left hemiparesis Symptom Onset Unknown: Yes
[2016-11-11] MEDS: SODIUM CHLORIDE 0.9% 1,000 ML IV SCH ×2 (10:50→17:51)
[2016-11-11] MEDS: LEVOFLOXACIN INJ 250 MG in PREMIX 1 EACH IV SCH (14:36)
[2016-11-11] MEDS ORDERED: MAGNESIUM SULF RIDER 2 GM in PREMIX 1 EACH IV PRN (15:25)
[2016-11-11] MEDS ORDERED: POTASSIUM CHLORIDE RIDER 10 MEQ in PREMIX 1 EACH IV PRN (15:25)
[2016-11-11] MEDS ORDERED: SODIUM CHLORIDE 0.9% 250 ML IV ONE (15:30)
--- NOTE | 2016-11-11 15:47 | Order Completion Report ---
See report scanned to EMR
[2016-11-11] MEDS: SERTRALINE 50 MG TABLET PO SCH (20:58)
[2016-11-12] MEDS: SODIUM CHLORIDE 0.9% 1,000 ML IV SCH (03:38)
[2016-11-12 06:40] LABS: Basophils % 0.3 % (0.0-0.8); Eosinophils # 0.2 10*3/uL (0.0-0.87); Eosinophils % 1.7 % (0.00-10.9); Hematocrit 32.6 VOL% (42.0-52.0); Immature Granulocytes Absolute 0.11 #; Lymphocytes % 17.8 % (21.2-54.2); Mean Corpuscular HGB Conc 33.7 GM/DL (32-36); Mean Corpuscular Hemoglobin 33 PG (27-34); Mean Corpuscular Volume 96.4 FL (87-102); Monocytes # 1.1 10*3/uL (0.11-0.8); Monocytes % 9.5 % (1.7-12.7); Neutrophils % 69.7 % (38.7-73.9); Platelet Count 162 T/CUMM (130-400); Red Blood Count 3.38 MC/CUMM (3.8-5.5); Red Cell Distribution Width 12.8 % (9.3-17.3); White Blood Count 11.4 T/CUMM (4-12)
[2016-11-12 07:04] LABS: Magnesium 2.4 MG/DL (1.8-2.4); Osmolality,Calculated 293.8 MOS/KG (273-304); Potassium 3.9 MMOL/L (3.5-5.1)
--- NOTE | 2016-11-12 07:47 | Urology Progress Note ---
Assessment and Plan - Time spent with patient Time spent with patient: Less than 30 minutes (1) Hematuria Status: Acute Assessment and plan: Gross hematuria noted with urinary retention. Likely, hemorrhagic cystitis. He could have urothelial carcinoma, and he probably needs endoscopy in the future. At this time, will continue Asif catheter to drainage. Agree with treat urinary tract infection- adjust per urine culture & sensitivities. Current Visit: Yes Qualifiers: Hematuria type: gross Qualified Code(s): R31.0 - Gross hematuria (2) Urinary retention due to benign prostatic hyperplasia Status: Acute Assessment and plan: Continue Avodart and Flomax Maintain Asif catheter for now for maximum drainage. Current Visit: No (3) Acute CVA (cerebrovascular accident) Status: Acute Assessment and plan: Eliquis is on hold. Management per primary care, but agree with holding Eliquis. Agree with starting aspirin and subcu heparin. Current Visit: No (4) Atrial fibrillation Status: Acute Assessment and plan: Agree with rate control, and holding Eliquis due to significant bleeding currently. Thanks for the opportunity to participate in the care of this patient. I agree that it is reasonable to move him back to rehab. Urine has cleared with treatment of UTI on maximal drainage. At this point I think it is best to keep the Asif catheter to allow maximum drainage and Dr. Eagle will follow-up next week. Current Visit: No Urology - PN: Subj Interval history: Urine has cleared nicely with catheter drainage and abx. Reports abd pain better. No fevers No N/V Started back on ASA Exam - Constitutional Vitals: Period Temp Pulse Resp BP Sys/Elizabeth Pulse Ox Last 24 Hr 97.0 F-99.6 F 84-196 18-20 67-151/41-85 91-97 General appearance: no acute distress - Head Head exam: Present: atraumatic - Eye Eye exam: Absent: scleral icterus - ENT ENT exam: Present: normal oropharynx - Neck Neck exam: Present: normal inspection - Respiratory Respiratory exam: Absent: accessory muscle use, stridor - Cardiovascular Cardiovascular exam: Present: irregular rhythm. Absent: JVD - GI/Abdominal GI/Abdominal exam: Present: soft. Absent: tenderness, rebound - Genitourinary Genitourinary: scrotum without lesions, cysts, edema or rash, penis with no lesions or discharge - Back Exam Back exam: Absent: CVA tenderness (L), CVA tenderness (R) - Neurological Exam Neurological exam: Present: alert, oriented X3 - Psychiatric Psychiatric exam: Present: normal affect, normal mood - Skin Skin exam: Present: warm, dry Results - Labs CBC & BMP: 11/12/16 05:32 11/12/16 05:32 Lab Results: I have reviewed the past 24 hour labs
[2016-11-12] MEDS ORDERED: MYLANTA/LIDO VISC/DIPH 300 ML BOTTLE SWISH/SPIT PRN (09:17)
[2016-11-12] MEDS: POTASSIUM CHLORIDE 20 MEQ/15 ML UDCUP PO SCH (09:22)
[2016-11-12] MEDS: DILTIAZEM CD 120 MG CAPSULE PO SCH (09:23)
[2016-11-12] MEDS: TAMSULOSIN 0.4 MG CAPSULE PO SCH (09:23)
[2016-11-12] MEDS: ENALAPRIL 2.5 MG TABLET PO SCH (09:23)
[2016-11-12] MEDS: DUTASTERIDE 0.5 MG CAPSULE PO SCH (09:24)
[2016-11-12] MEDS: DOCUSATE SODIUM 100 MG CAPSULE PO SCH (09:24)
[2016-11-12] MEDS: FUROSEMIDE 20 MG TABLET PO SCH (09:24)
[2016-11-12] MEDS: BACLOFEN 10 MG TABLET PO SCH (09:24)
[2016-11-12] MEDS: CARVEDILOL 12.5 MG TABLET PO SCH (09:24)
[2016-11-12] MEDS: ATORVASTATIN 20 MG TABLET PO SCH (09:24)
[2016-11-12] MEDS: LEVOTHYROXINE 150 MCG TABLET PO SCH (09:24)
[2016-11-12] MEDS: PANTOPRAZOLE 40 MG TABLET PO SCH (09:24)
[2016-11-12] MEDS: LEVOFLOXACIN INJ 250 MG in PREMIX 1 EACH IV SCH (09:28)
--- NOTE | 2016-11-12 09:50 | Discharge Summary ---
Hospital Course - Hospital Course Hospital Course: Patient came from the rehab unit after starting having hematuria. This was fairly significant. His H&H however did not go down significantly. A Asif catheter was placed and it was noted that he had a urinary tract infection which we treated. His urine has cleared up and is yellow without any noted blood at this time visually. He does still have a Asif catheter in place. It should be noted he was on Eliquis 5 mg twice a day, we held this and start him on baby aspirin. We did put SCD hose on him as the patient does have a history of atrial fibrillation. Urology was involved and appreciate their service. It was recommended keeping the aspirin but with his recent stroke history and risk factors I am going to try him on Eliquis 2.5 mg twice daily. Will start this tomorrow. Hopefully this will give us a balance between bleeding risk and stroke development. Nonetheless patient is very alert and oriented he is able to use his right side. Still cannot use his left side, arm or leg. We are going to send him back to rehab with a Asif catheter in place and watch his I&O 's very closely. Hopefully we can DC the Asif in 4 days or so. We will keep him on p.o. Levaquin for about 6 more days. If he does develop some more bleeding I would re-stop the Eliquis and put him back on daily baby aspirin. Diagnosis - Discharge Diagnosis (1) Hematuria Status: Acute (2) Urinary retention due to benign prostatic hyperplasia Status: Acute (3) Cardiomyopathy Status: Chronic (4) Chronic atrial fibrillation Status: Chronic Discharge Plan - Discharge Data Disposition: Disch/er- Rehab Fac Condition at Discharge: Stable Discharge Diet: other (Soft pured diet) Activity: as per physical therapy Hygiene: other (Per rehab instructions) Weight Bearing at Discharge: partial weight bearing Driving: not for Contact your physician if you experience:: fever over 101, Difficulty voiding, Bleeding - Discharge Medications New Apixaban [Eliquis] 2.5 mg PO BID tablet Docusate Sodium Cap [Colace Cap] 100 mg PO BID capsule Fluconazole Liquid [Diflucan Liquid] 200 mg PO DAILY bottle Fluconazole Liquid [Diflucan Liquid] 200 mg PO DAILY #2 bottle Pantoprazole Tab [Protonix Tab] 40 mg PO DAILY #30 tablet Apixaban [Eliquis] 2.5 mg PO BID #60 tablet Continue Levothyroxine Tab [Synthroid Tab] 150 mcg PO DAILY@0700 Furosemide Tab [Lasix Tab] 10 mg PO DAILY Atorvastatin [Lipitor] 20 mg PO DAILY Baclofen Tab [Lioresal] 10 mg PO BID tablet Diltiazem Cd Cap [Cardizem CD] 120 mg PO DAILY capsule Docusate Sodium Liquid [Colace Liquid] 100 mg PO BID Potassium Chloride Liquid 20 meq PO DAILY Promethazine Supp [Phenergan Supp] 12.5 mg RECTAL Q6H PRN supp PRN Reason: Nausea/Vomiting Tamsulosin [Flomax] 0.4 mg PO BID Dutasteride [Avodart] 0.5 mg PO DAILY Enalapril Tab [Vasotec Tab] 2.5 mg PO BID Carvedilol [Coreg] 12.5 mg PO BID tablet Sertraline [Zoloft] 50 mg PO BEDTIME tablet Discontinued Apixaban [Eliquis] 5 mg PO BID tablet Aspirin Tab 325 mg PO QOTHER DAY - Follow Up or Referral - Forms/Instructions Exam - Constitutional Vitals: Period Temp Pulse Resp BP Sys/Elizabeth Pulse Ox Last 24 Hr 97.1 F-99.6 F 84-97 18-20 67-151/41-85 91-97 Exam: Patient is easily arousable, is alert but slow to talk. Not moving left side. Eating breakfast this morning. No difficulty swallowing HEENT neck is supple trachea midline Cardiovascular rate is slightly irregular, no gallop or rub Lungs clear except for a few basal rales Abdomen soft nondistended, suit Suprapubic area is nondistended, catheter in place Extremities no clubbing cyanosis or edema Discharge Results Procedures and tests throughout hospitalization: Pending Orders 11/10/16 Urine Culture Routine Labs on day of discharge: Labs from last 24 hours 11/12/16 11/12/16 05:32 05:32 WBC 11.4 D RBC 3.38 L D Hgb 11.0 L D Hct 32.6 L MCV 96.4 MCH 33 MCHC 33.7 RDW 12.8 Plt Count 162 D MPV 11.0 Neut % (Auto) 69.7 Lymph % (Auto) 17.8 L [place] % (Auto) 9.5 Eos % (Auto) 1.7 Baso % (Auto) 0.3 Neut # (Auto) 8.0 H Lymph # (Auto) 2.0 [place] # (Auto) 1.1 H Eos # (Auto) 0.2 Baso # (Auto) 0.0 Immature Gran % 1.0 Nucleated RBC % 0.0 Immature Gran # 0.11 Nucleated RBCs # 0.00 Immature Plt Fraction 0.0 Sodium 144 Potassium 3.9 Chloride 112 H Carbon Dioxide 23 Anion Gap 12.9 BUN 36 H Creatinine 1.40 H GFR Calculation 57 BUN/Creatinine Ratio 25.00 H Glucose 97 Calculated Osmolality 293.8 Calcium 8.0 L Magnesium 2.4 Preliminary micro results at discharge 11/10/16 Unknown Urine Culture - Preliminary Urine,Voided Gram Negative Rods DS: Provider Date of admission: 11/10/16 15:01 Primary care physician: Stas Cui DO Attending physician on admission: Stas Cui DO Consults: 11/10/16 08:20 Consult to Physician [CONS] Routine Comment: Consulting Provider: Victorino Mayes Consult Notification Comment: dr mayes was notified in er 11/10/16 08:21 Consult to Case Mgmt/Social Srvs [CONS] Routine Reason for Case Mgmt/Social Srvs: Discharge Planning 11/10/16 11:50 Consult to Dietitian [CONS] Routine Reason for Dietitian: Dietary Consult Consult to Pastoral Services [CONS] Routine Comment: Pastoral Screen: Request Powertrain Calibration Engineer Visit Pastoral Screen Source of Request: Patient Family 11/10/16 22:41 Consult to Pharmacy [CONS] Routine Reason for Pharmacy Consult: Dose/Manage Antibiotics 11/11/16 10:50 Consult to Pharmacy [CONS] Routine Reason for Pharmacy Consult: Adjust Meds Renal Funct Discharging clinician: Stas Cui DO
[2016-11-12] MEDS ORDERED: FLUCONAZOLE 40 MG/ML 35 ML/BOTTLE PO SCH (10:00)
[2016-11-12] MEDS ORDERED: FLUCONAZOLE 200 MG TABLET PO ONE (11:00)
[2016-11-12 12:18] VITALS: BP 147/86
[2016-11-12] MEDS ORDERED: NYSTATIN 500,000 UNIT/5 ML UDCUP SWISH/SWAL SCH (13:00)
[2016-11-12] MEDS ORDERED: APIXABAN 2.5 MG TABLET PO SCH (21:00)
--- NOTE | 2016-11-16 14:07 | Physician Query Form ---
CLICK EDIT DOCUMENT TO SELECT QUERY ANSWER --> OK --> SIGN Leslie England RN Clinical Sand Shoveler W) [phone] (f) [phone] [email or web address]: Make your selection(s) from the choices in EACH section by typing an "x" and enter comments in the comment section. Please use your independent medical judgment in providing your response. This request does not imply that any particular answer is desired or expected. CLINICAL INDICATORS: (Providers should not edit this section) Based on lab results of creatinine on admission of 2.80 with a GFR of 25 and decreased to 1.40. Pt. treated with IV fluids of Normal Saline. Clarify which of the following most accurately represents the patient's renal status: ( ) Acute kidney injury (non-traumatic) ( ) Acute renal failure ( ) Acute renal failure with underlying Chronic Kidney Disease (CKD) - please provide stage below ( ) CKD - please provide stage below ( ) Other, please specify: (x ) Clinically unable to determine Chronic Kidney Disease Stages Source: [employer] ( ) Stage I (eGFR > or = 90) ( ) Stage II (eGFR 60 - 89) ( ) Stage III (eGFR 30 - 59) ( ) Stage IV (eGFR 15 - 29) ( ) Stage V (eGFR < 15 or dialysis) COMMENTS: PLEASE ALSO DOCUMENT RESPONSE IN PROGRESS NOTES AND/OR DISCHARGE SUMMARY Use of terms such as suspected, likely, or probable (associated with a specific diagnosis that is being evaluated, monitored, or treated as if it exists) are acceptable and can be restated in the discharge summary if not ruled out. MTDD
--- NOTE | 2016-11-17 21:18 | Order Completion Report ---
See report scanned to EMR
== END 2016-11-12 12:32 | DRG 690 ==
LOC: EDUNIT# → EDBD → N.EDINP 07:04 → N.ED 07:04 → N.2E 11:18
PROVIDERS: ADMIT Family Medicine; ATTEND Family Medicine

== ENCOUNTER 2016-11-28 19:41 | Inpatient (IN) ==
[2016-11-28] MEDS ORDERED: ACETAMINOPHEN 325 MG SUPP RECTAL ONE ×2 (19:58→20:00)
[2016-11-28] MEDS ORDERED: DILTIAZEM 50 MG/10 ML VIAL IV ONE (19:59)
[2016-11-28] MEDS ORDERED: SODIUM CHLORIDE 0.9% 1,000 ML IV STA (20:01)
[2016-11-28] MEDS ORDERED: LEVOFLOXACIN INJ 750 MG in PREMIX 1 EACH IV STA (20:01)
[2016-11-28] MEDS ORDERED: DILTIAZEM 50 MG/10 ML VIAL IV STA (20:01)
[2016-11-28] MEDS ORDERED: ACETAMINOPHEN 650 MG SUPP RECTAL ONE (20:05)
[2016-11-28] MEDS ORDERED: KETOROLAC 30 MG/1 ML VIAL IV STA (20:06)
[2016-11-28 20:12] LABS: Basophils # 0.1 10*3/uL (0.0-0.2); Basophils % 0.7 % (0.0-0.8); Eosinophils # 0.3 10*3/uL (0.0-0.87); Eosinophils % 2.5 % (0.00-10.9); Hematocrit 36.9 VOL% (42.0-52.0); Hemoglobin 12.6 GM/DL (14.0-18.0); Immature Granulocytes % 0.8 %; Immature Granulocytes Absolute 0.08 #; Lymphocytes # 0.4 10*3/uL (1.4-4.0); Lymphocytes % 4.1 % (21.2-54.2); Mean Corpuscular HGB Conc 34.1 GM/DL (32-36); Mean Corpuscular Hemoglobin 32 PG (27-34); Mean Corpuscular Volume 94.9 FL (87-102); Mean Platelet Volume 9.3 FL (9.6-12.0); Monocytes # 0.9 10*3/uL (0.11-0.8); Monocytes % 8.9 % (1.7-12.7); Neutrophils # 8.7 10*3/uL (1.4-7.4); Platelet Count 268 T/CUMM (130-400); Red Blood Count 3.89 MC/CUMM (3.8-5.5); White Blood Count 10.4 T/CUMM (4-12)
[2016-11-28] MEDS ORDERED: KETOROLAC 30 MG/1 ML VIAL ONE (20:13)
[2016-11-28 20:18] LABS: INR 1.2; PT Patient Result 12.6 SECS
[2016-11-28] MEDS ORDERED: DILTIAZEM 100 MG VIAL.ADD IV ONE ×2 (20:24→20:34)
[2016-11-28] MEDS ORDERED: LEVOFLOXACIN INJ 150 ML IV ONE (20:24)
[2016-11-28] MEDS ORDERED: SODIUM CHLORIDE 0.9% 100 ML IV ONE ×2 (20:25→20:33)
[2016-11-28] MEDS: DILTIAZEM INJ 100 MG in SODIUM CHLORIDE 0.9% 100 ML IV SCH (20:30)
[2016-11-28 20:35] LABS: Alanine Aminotransferase 22 U/L (16-61); Alkaline Phosphatase 100 U/L (45-117); Aspartate Amino Transferase 17 U/L (0-37); Blood Urea Nitrogen 28 MG/DL (7-18); Calcium 9.1 MG/DL (8.5-10.1); Glucose 138 MG/DL (74-106); Osmolality,Calculated 275.2 MOS/KG (273-304); Potassium 4.8 MMOL/L (3.5-5.1); Sodium 134 MMOL/L (136-145); Total Protein 7.4 G/DL (6.4-8.3); Troponin I Only < 0.015 NG/ML (0.00-0.045)
[2016-11-28] MEDS ORDERED: ONDANSETRON 4 MG/2 ML VIAL IV PRN (20:52)
[2016-11-28 20:54] LABS: Apearance,Urine CLOUDY (Clear); Bacteria,Urine Many /HPF (Few); Bilirubin,Urine Negative (Negative); Blood, Urine Large mg/dL (Negative); Glucose,Urine (UA) Negative (Negative); Ketones,Urine Negative (Negative); Nitrite,Urine Positive (Negative); Protein,Urine 100 MG/DL; RBC,Urine 799 /HPF (0-4); Urine Color Yellow (Yellow); Urine Specific Gravity 1.013 (1.001-1.035); Urine Urobilinogen < 2.0 EU/DL (0.2-1.0); WBC,Urine 2856 /HPF (0-6)
[2016-11-28] MEDS: APIXABAN 5 MG TABLET PO SCH (23:49)
[2016-11-28] MEDS: SODIUM CHLORIDE 0.9% 1,000 ML IV SCH (23:49)
[2016-11-28] MEDS: ATORVASTATIN 20 MG TABLET PO SCH (23:49)
[2016-11-28] MEDS: TAMSULOSIN 0.4 MG CAPSULE PO SCH (23:49)
[2016-11-28] MEDS: CARVEDILOL 12.5 MG TABLET PO SCH (23:50)
[2016-11-28] MEDS: ENALAPRIL 2.5 MG TABLET PO SCH (23:50)
[2016-11-29] MEDS ORDERED: INFLUENZA VIRUS VACCINE 0.5 ML SYRINGE IM ONE (00:42)
[2016-11-29 05:25] LABS: Basophils # 0.1 10*3/uL (0.0-0.2); Basophils % 0.4 % (0.0-0.8); Eosinophils # 0.2 10*3/uL (0.0-0.87); Eosinophils % 1.5 % (0.00-10.9); Hematocrit 34.6 VOL% (42.0-52.0); Hemoglobin 11.6 GM/DL (14.0-18.0); Immature Granulocytes % 0.7 %; Immature Granulocytes Absolute 0.08 #; Lymphocytes # 0.4 10*3/uL (1.4-4.0); Lymphocytes % 3.2 % (21.2-54.2); Mean Corpuscular HGB Conc 33.5 GM/DL (32-36); Mean Corpuscular Hemoglobin 32 PG (27-34); Mean Corpuscular Volume 96.6 FL (87-102); Mean Platelet Volume 9.8 FL (9.6-12.0); Monocytes # 1.1 10*3/uL (0.11-0.8); Monocytes % 9.7 % (1.7-12.7); Neutrophils # 9.6 10*3/uL (1.4-7.4); Neutrophils % 84.5 % (38.7-73.9); Platelet Count 240 T/CUMM (130-400); Red Blood Count 3.58 MC/CUMM (3.8-5.5); Red Cell Distribution Width 12.2 % (9.3-17.3); White Blood Count 11.3 T/CUMM (4-12)
[2016-11-29 05:49] LABS: Band Neutrophils 1 % (0-10); Eosinophils 1 % (0-10); Hypochromasia 1+; Lymphocytes 5 % (20-55); Platelet Estimate Adequate; Segmented Neutrophils 83 % (50-85); Total Cells Counted 100
[2016-11-29 05:50] LABS: Giant Platelets Few
[2016-11-29 06:07] LABS: Blood Urea Nitrogen 31 MG/DL (7-18); Calcium 8.2 MG/DL (8.5-10.1); Glucose 131 MG/DL (74-106); Sodium 136 MMOL/L (136-145); Troponin I Only < 0.015 NG/ML (0.00-0.045)
[2016-11-29] MEDS: LEVOTHYROXINE 150 MCG TABLET PO SCH (06:17)
[2016-11-29] MEDS: DILTIAZEM INJ 100 MG in SODIUM CHLORIDE 0.9% 100 ML IV SCH (06:18)
[2016-11-29] MEDS: DUTASTERIDE 0.5 MG CAPSULE PO SCH (09:42)
[2016-11-29] MEDS: APIXABAN 5 MG TABLET PO SCH ×2 (09:42→21:12)
[2016-11-29] MEDS: SERTRALINE 100 MG TABLET PO SCH (09:42)
[2016-11-29] MEDS: PANTOPRAZOLE 40 MG TABLET PO SCH (09:42)
[2016-11-29] MEDS: TAMSULOSIN 0.4 MG CAPSULE PO SCH ×2 (09:42→21:11)
[2016-11-29] MEDS: SODIUM CHLORIDE 0.9% 1,000 ML IV SCH ×3 (09:42→22:25)
[2016-11-29] MEDS: ENALAPRIL 2.5 MG TABLET PO SCH ×2 (09:43→21:12)
[2016-11-29] MEDS: CARVEDILOL 12.5 MG TABLET PO SCH ×2 (09:43→18:08)
[2016-11-29 11:02] LABS: Risk Ratio 5.61
[2016-11-29] MEDS ORDERED: CARVEDILOL 12.5 MG TABLET PO SCH (19:26)
[2016-11-29] MEDS: LEVOFLOXACIN INJ 750 MG in PREMIX 1 EACH IV SCH (21:11)
[2016-11-29] MEDS: ATORVASTATIN 20 MG TABLET PO SCH (21:11)
[2016-11-30] MEDS: SODIUM CHLORIDE 0.9% 1,000 ML IV SCH ×4 (02:38→20:30)
[2016-11-30] MEDS: DILTIAZEM INJ 100 MG in SODIUM CHLORIDE 0.9% 100 ML IV SCH (04:23)
[2016-11-30 05:45] LABS: Calcium 7.8 MG/DL (8.5-10.1); Magnesium 1.5 MG/DL (1.8-2.4); Osmolality,Calculated 278.8 MOS/KG (273-304); Potassium 3.9 MMOL/L (3.5-5.1)
[2016-11-30 05:57] LABS: Basophils % 0.5 % (0.0-0.8); Eosinophils # 0.3 10*3/uL (0.0-0.87); Eosinophils % 3.9 % (0.00-10.9); Hematocrit 26.8 VOL% (42.0-52.0); Immature Granulocytes % 0.8 %; Immature Granulocytes Absolute 0.07 #; Lymphocytes # 0.7 10*3/uL (1.4-4.0); Lymphocytes % 7.5 % (21.2-54.2); Mean Corpuscular HGB Conc 34.7 GM/DL (32-36); Mean Corpuscular Hemoglobin 34 PG (27-34); Mean Corpuscular Volume 96.4 FL (87-102); Mean Platelet Volume 9.2 FL (9.6-12.0); Monocytes % 11.4 % (1.7-12.7); Neutrophils # 6.6 10*3/uL (1.4-7.4); Neutrophils % 75.9 % (38.7-73.9); Red Blood Count 2.78 MC/CUMM (3.8-5.5); Red Cell Distribution Width 12.5 % (9.3-17.3); White Blood Count 8.7 T/CUMM (4-12)
[2016-11-30 05:58] LABS: Hemoglobin 9.3 GM/DL (14.0-18.0); Platelet Count 187 T/CUMM (130-400)
[2016-11-30] MEDS: LEVOTHYROXINE 150 MCG TABLET PO SCH (06:18)
[2016-11-30 07:31] LABS: Eosinophils 3 % (0-10); Giant Platelets Few; Hypochromasia Slight; Lymphocytes 5 % (20-55); Ovalocytes Slight; Platelet Estimate Normal; Segmented Neutrophils 83 % (50-85); Total Cells Counted 100
[2016-11-30] MEDS ORDERED: MAGNESIUM SULF RIDER 1 GM in PREMIX 1 EACH IV ONE ×3 (08:09→16:00)
[2016-11-30] MEDS ORDERED: DEXTROMETHORPHAN ER 6 MG/ML 90 ML/BOTTLE PO PRN (08:53)
[2016-11-30] MEDS ORDERED: ACETAMINOPHEN 325 MG TABLET PO PRN (08:53)
[2016-11-30] MEDS: CARVEDILOL 25 MG TABLET PO SCH ×2 (10:12→16:12)
[2016-11-30] MEDS: SERTRALINE 100 MG TABLET PO SCH (10:12)
[2016-11-30] MEDS: ENALAPRIL 2.5 MG TABLET PO SCH ×2 (10:12→22:48)
[2016-11-30] MEDS: PANTOPRAZOLE 40 MG TABLET PO SCH (10:12)
[2016-11-30] MEDS: APIXABAN 5 MG TABLET PO SCH ×2 (10:12→22:46)
[2016-11-30] MEDS: TAMSULOSIN 0.4 MG CAPSULE PO SCH ×2 (10:13→22:47)
[2016-11-30] MEDS: DUTASTERIDE 0.5 MG CAPSULE PO SCH (10:13)
[2016-11-30] MEDS: ERTAPENEM 1,000 MG in SODIUM CHLORIDE 0.9% 50 ML IV SCH (10:13)
[2016-11-30] MEDS: MAGNESIUM CHLORIDE 64 MG TABLET PO SCH ×2 (10:13→22:46)
[2016-11-30] MEDS ORDERED: DILTIAZEM 60 MG TABLET PO SCH (17:00)
[2016-11-30] MEDS: LEVOFLOXACIN INJ 750 MG in PREMIX 1 EACH IV SCH (22:42)
[2016-11-30] MEDS: ATORVASTATIN 20 MG TABLET PO SCH (22:46)
[2016-12-01] MEDS: SODIUM CHLORIDE 0.9% 1,000 ML IV SCH ×4 (04:22→23:06)
[2016-12-01 05:07] LABS: Basophils % 0.3 % (0.0-0.8); Eosinophils # 0.4 10*3/uL (0.0-0.87); Eosinophils % 6.2 % (0.00-10.9); Hematocrit 25.2 VOL% (42.0-52.0); Hemoglobin 8.5 GM/DL (14.0-18.0); Immature Granulocytes % 0.8 %; Immature Granulocytes Absolute 0.06 #; Lymphocytes % 13.6 % (21.2-54.2); Mean Corpuscular HGB Conc 33.7 GM/DL (32-36); Mean Corpuscular Hemoglobin 33 PG (27-34); Mean Corpuscular Volume 96.6 FL (87-102); Mean Platelet Volume 9.9 FL (9.6-12.0); Monocytes # 0.8 10*3/uL (0.11-0.8); Monocytes % 10.6 % (1.7-12.7); Neutrophils # 4.8 10*3/uL (1.4-7.4); Neutrophils % 68.5 % (38.7-73.9); Platelet Count 166 T/CUMM (130-400); Red Blood Count 2.61 MC/CUMM (3.8-5.5); Red Cell Distribution Width 12.7 % (9.3-17.3); White Blood Count 7.1 T/CUMM (4-12)
[2016-12-01 05:40] LABS: Calcium 7.5 MG/DL (8.5-10.1); Magnesium 2.1 MG/DL (1.8-2.4); Potassium 3.6 MMOL/L (3.5-5.1)
[2016-12-01] MEDS: LEVOTHYROXINE 150 MCG TABLET PO SCH (06:15)
[2016-12-01] MEDS: ERTAPENEM 1,000 MG in SODIUM CHLORIDE 0.9% 50 ML IV SCH (09:29)
[2016-12-01] MEDS: CARVEDILOL 25 MG TABLET PO SCH ×2 (09:30→18:19)
[2016-12-01] MEDS: DUTASTERIDE 0.5 MG CAPSULE PO SCH (09:30)
[2016-12-01] MEDS: MAGNESIUM CHLORIDE 64 MG TABLET PO SCH ×2 (09:30→21:47)
[2016-12-01] MEDS: TAMSULOSIN 0.4 MG CAPSULE PO SCH ×2 (09:30→21:47)
[2016-12-01] MEDS: SERTRALINE 100 MG TABLET PO SCH (09:30)
[2016-12-01] MEDS: DILTIAZEM 60 MG TABLET PO PRN (09:31)
[2016-12-01] MEDS: APIXABAN 5 MG TABLET PO SCH ×2 (09:31→21:47)
[2016-12-01] MEDS: ENALAPRIL 2.5 MG TABLET PO SCH ×2 (09:31→21:47)
[2016-12-01] MEDS: PANTOPRAZOLE 40 MG TABLET PO SCH (09:31)
[2016-12-01] MEDS: ATORVASTATIN 20 MG TABLET PO SCH (21:47)
[2016-12-01] MEDS: LEVOFLOXACIN INJ 750 MG in PREMIX 1 EACH IV SCH (21:48)
[2016-12-02 05:51] LABS: Basophils % 0.4 % (0.0-0.8); Eosinophils # 0.5 10*3/uL (0.0-0.87); Eosinophils % 6.1 % (0.00-10.9); Hematocrit 26.5 VOL% (42.0-52.0); Hemoglobin 8.8 GM/DL (14.0-18.0); Immature Granulocytes % 0.4 %; Immature Granulocytes Absolute 0.03 #; Lymphocytes % 11.8 % (21.2-54.2); Mean Corpuscular HGB Conc 33.2 GM/DL (32-36); Mean Corpuscular Hemoglobin 32 PG (27-34); Mean Platelet Volume 9.8 FL (9.6-12.0); Monocytes # 0.8 10*3/uL (0.11-0.8); Monocytes % 9.1 % (1.7-12.7); Neutrophils % 72.2 % (38.7-73.9); Platelet Count 172 T/CUMM (130-400); Red Blood Count 2.76 MC/CUMM (3.8-5.5); Red Cell Distribution Width 12.6 % (9.3-17.3); White Blood Count 8.3 T/CUMM (4-12)
[2016-12-02 06:14] LABS: Calcium 7.5 MG/DL (8.5-10.1); Magnesium 1.8 MG/DL (1.8-2.4); Potassium 3.6 MMOL/L (3.5-5.1)
[2016-12-02] MEDS: LEVOTHYROXINE 150 MCG TABLET PO SCH (06:29)
[2016-12-02] MEDS: SODIUM CHLORIDE 0.9% 1,000 ML IV SCH ×3 (06:54→18:58)
[2016-12-02] MEDS: PANTOPRAZOLE 40 MG TABLET PO SCH (09:52)
[2016-12-02] MEDS: APIXABAN 5 MG TABLET PO SCH ×2 (09:52→22:20)
[2016-12-02] MEDS: TAMSULOSIN 0.4 MG CAPSULE PO SCH ×2 (09:52→22:20)
[2016-12-02] MEDS: ENALAPRIL 2.5 MG TABLET PO SCH ×2 (09:52→22:21)
[2016-12-02] MEDS: SERTRALINE 100 MG TABLET PO SCH (09:52)
[2016-12-02] MEDS: CARVEDILOL 25 MG TABLET PO SCH ×2 (09:52→17:21)
[2016-12-02] MEDS: MAGNESIUM CHLORIDE 64 MG TABLET PO SCH ×2 (09:52→22:21)
[2016-12-02] MEDS: DUTASTERIDE 0.5 MG CAPSULE PO SCH (09:52)
[2016-12-02] MEDS: ERTAPENEM 1,000 MG in SODIUM CHLORIDE 0.9% 50 ML IV SCH (09:59)
[2016-12-02] MEDS ORDERED: SODIUM CHLORIDE 0.9% 250 ML IV PRN (17:22)
[2016-12-02] MEDS ORDERED: FUROSEMIDE 20 MG/2 ML VIAL IV ONE (17:33)
[2016-12-02] MEDS ORDERED: ACETAMINOPHEN 325 MG TABLET PO ONE (17:34)
[2016-12-02] MEDS ORDERED: SODIUM CHLORIDE 0.9% 1,000 ML IV SCH (19:00)
[2016-12-02] MEDS: ATORVASTATIN 20 MG TABLET PO SCH (22:20)
[2016-12-03 05:28] LABS: Basophils # 0.1 10*3/uL (0.0-0.2); Basophils % 0.7 % (0.0-0.8); Eosinophils # 0.6 10*3/uL (0.0-0.87); Hematocrit 31.6 VOL% (42.0-52.0); Hemoglobin 10.7 GM/DL (14.0-18.0); Immature Granulocytes % 0.4 %; Immature Granulocytes Absolute 0.03 #; Lymphocytes # 1.3 10*3/uL (1.4-4.0); Lymphocytes % 15.4 % (21.2-54.2); Mean Corpuscular HGB Conc 33.9 GM/DL (32-36); Mean Corpuscular Hemoglobin 32 PG (27-34); Mean Corpuscular Volume 95.2 FL (87-102); Mean Platelet Volume 10.3 FL (9.6-12.0); Monocytes % 11.8 % (1.7-12.7); Neutrophils # 5.3 10*3/uL (1.4-7.4); Neutrophils % 64.7 % (38.7-73.9); Platelet Count 177 T/CUMM (130-400); Red Blood Count 3.32 MC/CUMM (3.8-5.5); White Blood Count 8.2 T/CUMM (4-12)
[2016-12-03] MEDS: LEVOTHYROXINE 150 MCG TABLET PO SCH (05:32)
[2016-12-03 06:04] LABS: Magnesium 1.9 MG/DL (1.8-2.4); Osmolality,Calculated 279.4 MOS/KG (273-304); Potassium 3.7 MMOL/L (3.5-5.1)
[2016-12-03] MEDS: CARVEDILOL 25 MG TABLET PO SCH (09:32)
[2016-12-03] MEDS: ERTAPENEM 1,000 MG in SODIUM CHLORIDE 0.9% 50 ML IV SCH (09:32)
[2016-12-03] MEDS: PANTOPRAZOLE 40 MG TABLET PO SCH (09:32)
[2016-12-03] MEDS: DUTASTERIDE 0.5 MG CAPSULE PO SCH (09:33)
[2016-12-03] MEDS: ENALAPRIL 2.5 MG TABLET PO SCH (09:33)
[2016-12-03] MEDS: DILTIAZEM 60 MG TABLET PO PRN (09:33)
[2016-12-03] MEDS: MAGNESIUM CHLORIDE 64 MG TABLET PO SCH (09:33)
[2016-12-03] MEDS: APIXABAN 5 MG TABLET PO SCH (09:33)
[2016-12-03] MEDS: TAMSULOSIN 0.4 MG CAPSULE PO SCH (09:34)
[2016-12-03] MEDS: SERTRALINE 100 MG TABLET PO SCH (09:34)
[2016-12-03 12:37] VITALS: BP 126/59
[2016-12-03] MEDS ORDERED: AMOXICILLIN/CLAV 875 MG TABLET PO SCH (21:00)
== END 2016-12-03 13:45 | disposition swing bed (61) | DRG 690 ==
LOC: EDUNIT# → EDBD → N.ED 19:41 → N.EDINP 20:51 → N.TELES 21:28
PROVIDERS: ADMIT Family Medicine; ATTEND Family Medicine

== ENCOUNTER 2017-01-20 14:23 | Inpatient (IN) ==
[2017-01-20] MEDS ORDERED: ACETAMINOPHEN 325 MG TABLET PO PRN (14:38)
[2017-01-20 15:58] LABS: Basophils # 0.1 10*3/uL (0.0-0.2); Basophils % 1.1 % (0.0-0.8); Eosinophils # 0.7 10*3/uL (0.0-0.87); Hematocrit 39.5 VOL% (42.0-52.0); Hemoglobin 13.2 GM/DL (14.0-18.0); Immature Granulocytes % 0.4 %; Immature Granulocytes Absolute 0.05 #; Lymphocytes # 1.3 10*3/uL (1.4-4.0); Mean Corpuscular HGB Conc 33.4 GM/DL (32-36); Mean Corpuscular Hemoglobin 32 PG (27-34); Mean Corpuscular Volume 95.4 FL (87-102); Mean Platelet Volume 9.9 FL (9.6-12.0); Monocytes # 1.1 10*3/uL (0.11-0.8); Monocytes % 9.2 % (1.7-12.7); Neutrophils # 8.2 10*3/uL (1.4-7.4); Neutrophils % 72.3 % (38.7-73.9); Platelet Count 252 T/CUMM (130-400); Red Blood Count 4.14 MC/CUMM (3.8-5.5); White Blood Count 11.4 T/CUMM (4-12)
[2017-01-20 16:14] LABS: INR 1.6; PT Patient Result 16.9 SECS
[2017-01-20 16:32] LABS: Albumin 3.3 G/DL (3.4-5.0); Bilirubin,Total 0.6 MG/DL (0.2-1.0); Osmolality,Calculated 311.1 MOS/KG (273-304); Total Protein 7.6 G/DL (6.4-8.3)
[2017-01-20 16:34] LABS: Potassium 6.2 MMOL/L (3.5-5.1)
[2017-01-20 16:38] LABS: Magnesium 3.2 MG/DL (1.8-2.4); Thyroid Stimulating Hormone 0.784 uIU/ml (0.358-3.74)
[2017-01-20 16:40] LABS: 25 Hydroxy Vitamin D Total 41.2 NG/ML; Folate 15.2 NG/ML (5.4-24.0)
[2017-01-20] MEDS ORDERED: POTASSIUM CHLORIDE INJ 10 MEQ in SODIUM CHLORIDE 0.9% 1,000 ML IV SCH (17:00)
[2017-01-20] MEDS ORDERED: SODIUM POLYSTYRENE SULFATE 15 GM/60 ML BOTTLE PO ONE (17:05)
[2017-01-20] MEDS: SODIUM CHLORIDE 0.9% 1,000 ML IV SCH ×2 (17:44→23:33)
[2017-01-20 19:40] LABS: Apearance,Urine CLOUDY (Clear); Bilirubin,Urine Negative (Negative); Blood, Urine Large mg/dL (Negative); Glucose,Urine (UA) Negative (Negative); Ketones,Urine 5 mg/dL (Negative); Nitrite,Urine Negative (Negative); Protein,Urine 100 MG/DL; Urine Color Yellow (Yellow); Urine Specific Gravity 1.012 (1.001-1.035); Urine Urobilinogen < 2.0 EU/DL (0.2-1.0)
[2017-01-20 19:54] LABS: Bacteria,Urine Many /HPF (Few); RBC,Urine 2071 /HPF (0-4); WBC,Urine 25310 /HPF (0-6)
[2017-01-20] MEDS ORDERED: DOCUSATE SODIUM 100 MG CAPSULE PO SCH (21:00)
[2017-01-21] MEDS: DILTIAZEM 60 MG TABLET PO PRN (00:02)
[2017-01-21] MEDS: cefTRIAXone 1,000 MG in SYRINGE 1 EACH IV SCH ×2 (00:05→22:39)
[2017-01-21] MEDS: SODIUM CHLORIDE 0.9% 1,000 ML IV SCH ×2 (02:10→16:29)
[2017-01-21 06:02] LABS: Basophils # 0.1 10*3/uL (0.0-0.2); Basophils % 1.1 % (0.0-0.8); Eosinophils # 0.8 10*3/uL (0.0-0.87); Eosinophils % 13.1 % (0.00-10.9); Hematocrit 35.7 VOL% (42.0-52.0); Immature Granulocytes % 0.3 %; Immature Granulocytes Absolute 0.02 #; Lymphocytes # 1.4 10*3/uL (1.4-4.0); Lymphocytes % 21.9 % (21.2-54.2); Mean Corpuscular HGB Conc 33.6 GM/DL (32-36); Mean Corpuscular Hemoglobin 32 PG (27-34); Mean Corpuscular Volume 94.9 FL (87-102); Mean Platelet Volume 10.3 FL (9.6-12.0); Monocytes # 0.9 10*3/uL (0.11-0.8); Monocytes % 13.9 % (1.7-12.7); NRBC # 0.02 10*3/uL; Neutrophils # 3.2 10*3/uL (1.4-7.4); Neutrophils % 49.7 % (38.7-73.9); Platelet Count 176 T/CUMM (130-400); Red Blood Count 3.76 MC/CUMM (3.8-5.5); White Blood Count 6.4 T/CUMM (4-12)
[2017-01-21 06:16] LABS: Calcium 8.7 MG/DL (8.5-10.1); Magnesium 2.9 MG/DL (1.8-2.4)
[2017-01-21] MEDS ORDERED: LEVOTHYROXINE 100 MCG TABLET PO SCH (06:30)
[2017-01-21] MEDS ORDERED: LEVOTHYROXINE 150 MCG TABLET PO SCH (06:30)
[2017-01-21 07:44] LABS: Band Neutrophils 1 % (0-10); Eosinophils 12 % (0-10); Lymphocytes 23 % (20-55); Microcytosis 1+; Myelocytes 1 %; Segmented Neutrophils 54 % (50-85); Total Cells Counted 100
[2017-01-21 07:45] LABS: Ovalocytes Slight; Platelet Estimate Adequate
[2017-01-21] MEDS: PANTOPRAZOLE 40 MG TABLET PO SCH (08:54)
[2017-01-21] MEDS: SERTRALINE 100 MG TABLET PO SCH (08:54)
[2017-01-21] MEDS: APIXABAN 5 MG TABLET PO SCH ×2 (08:54→22:38)
[2017-01-21] MEDS: DOCUSATE SODIUM 100 MG/10 ML UDCUP PO SCH ×2 (08:59→22:39)
[2017-01-21] MEDS: CARVEDILOL 25 MG TABLET PO SCH ×2 (10:00→16:03)
[2017-01-21] MEDS: ATORVASTATIN 20 MG TABLET PO SCH (22:39)
[2017-01-22] MEDS: SODIUM CHLORIDE 0.9% 1,000 ML IV SCH ×5 (01:35→18:01)
[2017-01-22 02:33] LABS: Collection Time,Urine 24 HOURS; Total Protein 24 Hr Ur Result 2507 MG/24HR (0-149.1); Total Volume,Urine 1260 ML (400-2000)
[2017-01-22 03:08] LABS: Creatinine 24 Hr Urine Result 1.68 G/24HR (0.95-2.49)
[2017-01-22 03:09] LABS: Creatinine Clearance Urine 21.76 ML/MIN (70-135)
[2017-01-22 05:31] LABS: Calcium 8.4 MG/DL (8.5-10.1); Magnesium 2.6 MG/DL (1.8-2.4); Osmolality,Calculated 306.3 MOS/KG (273-304); Potassium 4.5 MMOL/L (3.5-5.1)
[2017-01-22] MEDS: DOCUSATE SODIUM 100 MG/10 ML UDCUP PO SCH ×2 (08:30→22:18)
[2017-01-22] MEDS: DILTIAZEM 60 MG TABLET PO PRN (08:30)
[2017-01-22] MEDS: SERTRALINE 100 MG TABLET PO SCH (08:31)
[2017-01-22] MEDS: CARVEDILOL 25 MG TABLET PO SCH (08:31)
[2017-01-22] MEDS: APIXABAN 5 MG TABLET PO SCH (08:31)
[2017-01-22] MEDS: PANTOPRAZOLE 40 MG TABLET PO SCH (08:31)
[2017-01-22] MEDS: LINEZOLID INJ 600 MG in PREMIX 1 EACH IV SCH (14:52)
[2017-01-22] MEDS: CARVEDILOL 12.5 MG TABLET PO SCH (16:23)
[2017-01-22] MEDS: APIXABAN 2.5 MG TABLET PO SCH (22:17)
[2017-01-22] MEDS: ATORVASTATIN 20 MG TABLET PO SCH (22:18)
[2017-01-22] MEDS: ONDANSETRON 4 MG/2 ML VIAL IV PRN (22:23)
[2017-01-22] MEDS ORDERED: DILTIAZEM 50 MG/10 ML VIAL IV ONE (22:51)
[2017-01-22] MEDS ORDERED: DILTIAZEM 100 MG VIAL.ADD IV ONE (22:55)
[2017-01-22] MEDS ORDERED: SODIUM CHLORIDE 0.9% 0 ML IV ONE (22:55)
[2017-01-22] MEDS: cefTRIAXone 1,000 MG in SYRINGE 1 EACH IV SCH (23:30)
[2017-01-22] MEDS: DILTIAZEM INJ 100 MG in SODIUM CHLORIDE 0.9% 100 ML IV SCH (23:43)
[2017-01-23] MEDS: SODIUM CHLORIDE 0.9% 1,000 ML IV SCH ×4 (01:20→19:15)
[2017-01-23] MEDS: LINEZOLID INJ 600 MG in PREMIX 1 EACH IV SCH ×2 (05:31→17:13)
[2017-01-23 06:17] LABS: Basophils # 0.1 10*3/uL (0.0-0.2); Basophils % 0.9 % (0.0-0.8); Calcium 8.3 MG/DL (8.5-10.1); Eosinophils # 0.8 10*3/uL (0.0-0.87); Hematocrit 31.8 VOL% (42.0-52.0); Hemoglobin 10.4 GM/DL (14.0-18.0); Immature Granulocytes % 0.4 %; Immature Granulocytes Absolute 0.03 #; Lymphocytes # 1.4 10*3/uL (1.4-4.0); Lymphocytes % 18.2 % (21.2-54.2); Magnesium 2.2 MG/DL (1.8-2.4); Mean Corpuscular HGB Conc 32.7 GM/DL (32-36); Mean Corpuscular Hemoglobin 32 PG (27-34); Mean Corpuscular Volume 97.2 FL (87-102); Mean Platelet Volume 10.1 FL (9.6-12.0); Monocytes # 0.8 10*3/uL (0.11-0.8); Monocytes % 10.1 % (1.7-12.7); Neutrophils # 4.5 10*3/uL (1.4-7.4); Neutrophils % 59.4 % (38.7-73.9); Osmolality,Calculated 304.8 MOS/KG (273-304); Platelet Count 197 T/CUMM (130-400); Potassium 4.6 MMOL/L (3.5-5.1); Red Blood Count 3.27 MC/CUMM (3.8-5.5); Red Cell Distribution Width 14.2 % (9.3-17.3); White Blood Count 7.6 T/CUMM (4-12)
[2017-01-23 08:23] LABS: Burr Cells Slight; Eosinophils 5 % (0-10); Hypochromasia 1+; Lymphocytes 17 % (20-55); Platelet Estimate Adequate; Segmented Neutrophils 72 % (50-85); Total Cells Counted 100
[2017-01-23] MEDS: DOCUSATE SODIUM 100 MG/10 ML UDCUP PO SCH ×2 (09:02→20:00)
[2017-01-23] MEDS: SERTRALINE 100 MG TABLET PO SCH (09:02)
[2017-01-23] MEDS: CARVEDILOL 12.5 MG TABLET PO SCH ×2 (09:02→16:32)
[2017-01-23] MEDS: PANTOPRAZOLE 40 MG TABLET PO SCH (09:03)
[2017-01-23] MEDS: APIXABAN 2.5 MG TABLET PO SCH ×2 (09:03→22:23)
[2017-01-23] MEDS: ATORVASTATIN 20 MG TABLET PO SCH (22:23)
[2017-01-23] MEDS: DILTIAZEM INJ 100 MG in SODIUM CHLORIDE 0.9% 100 ML IV SCH (23:00)
[2017-01-23] MEDS: cefTRIAXone 1,000 MG in SYRINGE 1 EACH IV SCH (23:30)
[2017-01-24] MEDS: SODIUM CHLORIDE 0.9% 1,000 ML IV SCH ×3 (00:52→20:49)
[2017-01-24 05:05] LABS: Basophils # 0.1 10*3/uL (0.0-0.2); Basophils % 0.9 % (0.0-0.8); Eosinophils # 0.8 10*3/uL (0.0-0.87); Eosinophils % 11.4 % (0.00-10.9); Hematocrit 30.6 VOL% (42.0-52.0); Immature Granulocytes % 0.6 %; Immature Granulocytes Absolute 0.04 #; Lymphocytes # 1.4 10*3/uL (1.4-4.0); Lymphocytes % 20.7 % (21.2-54.2); Mean Corpuscular HGB Conc 32.7 GM/DL (32-36); Mean Corpuscular Hemoglobin 32 PG (27-34); Mean Corpuscular Volume 96.8 FL (87-102); Mean Platelet Volume 9.7 FL (9.6-12.0); Monocytes # 0.9 10*3/uL (0.11-0.8); Monocytes % 13.6 % (1.7-12.7); Neutrophils # 3.6 10*3/uL (1.4-7.4); Neutrophils % 52.8 % (38.7-73.9); Platelet Count 149 T/CUMM (130-400); Red Blood Count 3.16 MC/CUMM (3.8-5.5); Red Cell Distribution Width 14.2 % (9.3-17.3); White Blood Count 6.9 T/CUMM (4-12)
[2017-01-24 05:37] LABS: Calcium 8.2 MG/DL (8.5-10.1); Osmolality,Calculated 301.4 MOS/KG (273-304); Potassium 4.1 MMOL/L (3.5-5.1)
[2017-01-24 05:48] LABS: Eosinophils 14 % (0-10); Lymphocytes 21 % (20-55); Segmented Neutrophils 59 % (50-85); Total Cells Counted 100
[2017-01-24 05:49] LABS: Burr Cells Slight; Giant Platelets Few; Hypochromasia 1+; Microcytosis Slight; Ovalocytes Slight; Platelet Estimate Normal
[2017-01-24] MEDS: LINEZOLID INJ 600 MG in PREMIX 1 EACH IV SCH ×2 (05:56→17:52)
[2017-01-24] MEDS: CARVEDILOL 12.5 MG TABLET PO SCH ×2 (08:48→17:50)
[2017-01-24] MEDS: APIXABAN 2.5 MG TABLET PO SCH ×2 (08:48→21:44)
[2017-01-24] MEDS: PANTOPRAZOLE 40 MG TABLET PO SCH (08:48)
[2017-01-24] MEDS: DOCUSATE SODIUM 100 MG/10 ML UDCUP PO SCH ×2 (08:48→21:43)
[2017-01-24] MEDS: SERTRALINE 100 MG TABLET PO SCH (08:49)
[2017-01-24] MEDS: ONDANSETRON 4 MG/2 ML VIAL IV PRN ×2 (08:49→22:45)
[2017-01-24] MEDS: ATORVASTATIN 20 MG TABLET PO SCH (21:44)
[2017-01-25] MEDS: DILTIAZEM INJ 100 MG in SODIUM CHLORIDE 0.9% 100 ML IV SCH (00:14)
[2017-01-25] MEDS: cefTRIAXone 1,000 MG in SYRINGE 1 EACH IV SCH (00:14)
[2017-01-25] MEDS: LINEZOLID INJ 600 MG in PREMIX 1 EACH IV SCH ×3 (06:16→17:30)
[2017-01-25] MEDS: APIXABAN 2.5 MG TABLET PO SCH ×2 (08:21→21:08)
[2017-01-25] MEDS: SERTRALINE 100 MG TABLET PO SCH (08:21)
[2017-01-25] MEDS: PANTOPRAZOLE 40 MG TABLET PO SCH (08:21)
[2017-01-25] MEDS: CARVEDILOL 12.5 MG TABLET PO SCH ×2 (08:21→17:29)
[2017-01-25] MEDS: ONDANSETRON 4 MG/2 ML VIAL IV PRN (08:28)
[2017-01-25] MEDS: DOCUSATE SODIUM 100 MG/10 ML UDCUP PO SCH ×2 (09:12→22:27)
[2017-01-25] MEDS: SODIUM CHLORIDE 0.9% 1,000 ML IV SCH ×3 (17:32→22:30)
[2017-01-25] MEDS: ATORVASTATIN 20 MG TABLET PO SCH (22:27)
[2017-01-26] MEDS: cefTRIAXone 1,000 MG in SYRINGE 1 EACH IV SCH ×2 (00:31→22:30)
[2017-01-26] MEDS: DILTIAZEM INJ 100 MG in SODIUM CHLORIDE 0.9% 100 ML IV SCH ×2 (00:33→22:14)
[2017-01-26] MEDS: SODIUM CHLORIDE 0.9% 1,000 ML IV SCH ×3 (02:57→16:57)
[2017-01-26 05:36] LABS: Basophils # 0.1 10*3/uL (0.0-0.2); Basophils % 0.8 % (0.0-0.8); Eosinophils # 0.9 10*3/uL (0.0-0.87); Eosinophils % 10.5 % (0.00-10.9); Hematocrit 29.7 VOL% (42.0-52.0); Hemoglobin 9.8 GM/DL (14.0-18.0); Immature Granulocytes % 0.9 %; Immature Granulocytes Absolute 0.08 #; Lymphocytes # 1.4 10*3/uL (1.4-4.0); Lymphocytes % 15.6 % (21.2-54.2); Mean Corpuscular Hemoglobin 31 PG (27-34); Mean Corpuscular Volume 94.9 FL (87-102); Mean Platelet Volume 9.3 FL (9.6-12.0); Monocytes % 11.3 % (1.7-12.7); Neutrophils # 5.4 10*3/uL (1.4-7.4); Neutrophils % 60.9 % (38.7-73.9); Platelet Count 126 T/CUMM (130-400); Red Blood Count 3.13 MC/CUMM (3.8-5.5); Red Cell Distribution Width 14.2 % (9.3-17.3); White Blood Count 8.8 T/CUMM (4-12)
[2017-01-26 06:04] LABS: Calcium 7.6 MG/DL (8.5-10.1); Magnesium 1.3 MG/DL (1.8-2.4); Osmolality,Calculated 289.7 MOS/KG (273-304); Potassium 3.2 MMOL/L (3.5-5.1)
[2017-01-26] MEDS: LINEZOLID INJ 600 MG in PREMIX 1 EACH IV SCH ×2 (06:11→16:58)
[2017-01-26] MEDS ORDERED: MAGNESIUM SULF RIDER 2 GM in PREMIX 1 EACH IV ONE (09:25)
[2017-01-26] MEDS ORDERED: POTASSIUM CHLORIDE RIDER 20 MEQ in PREMIX 1 EACH IV PRN (09:28)
[2017-01-26] MEDS: DOCUSATE SODIUM 100 MG/10 ML UDCUP PO SCH ×2 (11:47→21:00)
[2017-01-26] MEDS: CARVEDILOL 12.5 MG TABLET PO SCH ×2 (13:25→16:57)
[2017-01-26] MEDS: PANTOPRAZOLE 40 MG TABLET PO SCH (14:18)
[2017-01-26] MEDS: SERTRALINE 100 MG TABLET PO SCH (14:19)
[2017-01-26] MEDS: ONDANSETRON 4 MG/2 ML VIAL IV PRN (20:15)
[2017-01-26] MEDS: APIXABAN 2.5 MG TABLET PO SCH (21:00)
[2017-01-26] MEDS: ATORVASTATIN 20 MG TABLET PO SCH (21:00)
[2017-01-27] MEDS: SODIUM CHLORIDE 0.9% 1,000 ML IV SCH ×4 (02:06→16:42)
[2017-01-27 04:59] LABS: Basophils # 0.1 10*3/uL (0.0-0.2); Basophils % 0.7 % (0.0-0.8); Eosinophils % 9.3 % (0.00-10.9); Hematocrit 31.4 VOL% (42.0-52.0); Hemoglobin 10.8 GM/DL (14.0-18.0); Immature Granulocytes % 0.8 %; Immature Granulocytes Absolute 0.09 #; Lymphocytes # 1.5 10*3/uL (1.4-4.0); Lymphocytes % 13.8 % (21.2-54.2); Mean Corpuscular HGB Conc 34.4 GM/DL (32-36); Mean Corpuscular Hemoglobin 32 PG (27-34); Mean Corpuscular Volume 93.7 FL (87-102); Mean Platelet Volume 9.5 FL (9.6-12.0); Neutrophils # 7.4 10*3/uL (1.4-7.4); Neutrophils % 66.4 % (38.7-73.9); Platelet Count 126 T/CUMM (130-400); Red Blood Count 3.35 MC/CUMM (3.8-5.5); Red Cell Distribution Width 14.1 % (9.3-17.3); White Blood Count 11.1 T/CUMM (4-12)
[2017-01-27 05:13] LABS: INR 1.6
[2017-01-27] MEDS: ONDANSETRON 4 MG/2 ML VIAL IV PRN ×2 (06:06→22:17)
[2017-01-27] MEDS: LINEZOLID INJ 600 MG in PREMIX 1 EACH IV SCH ×2 (06:08→16:51)
[2017-01-27 07:44] LABS: Calcium 7.6 MG/DL (8.5-10.1); Osmolality,Calculated 286.7 MOS/KG (273-304); Potassium 3.6 MMOL/L (3.5-5.1)
[2017-01-27] MEDS: DOCUSATE SODIUM 100 MG/10 ML UDCUP PO SCH ×3 (09:25→21:00)
[2017-01-27] MEDS: CARVEDILOL 12.5 MG TABLET PO SCH ×2 (09:25→16:39)
[2017-01-27] MEDS ORDERED: LIDOCAINE 1% 5 ML VIAL ONE (13:18)
[2017-01-27] MEDS ORDERED: PROPOFOL 200 MG/20 ML VIAL IV ONE (13:18)
[2017-01-27] MEDS: PANTOPRAZOLE 40 MG TABLET PO SCH (14:18)
[2017-01-27] MEDS: SERTRALINE 100 MG TABLET PO SCH (14:18)
[2017-01-27] MEDS: APIXABAN 2.5 MG TABLET PO SCH ×3 (20:35→22:10)
[2017-01-27] MEDS: ATORVASTATIN 20 MG TABLET PO SCH (20:35)
[2017-01-27] MEDS ORDERED: APIXABAN 2.5 MG TABLET PO SCH (21:00)
[2017-01-27] MEDS: cefTRIAXone 1,000 MG in SYRINGE 1 EACH IV SCH (22:29)
[2017-01-27] MEDS: DILTIAZEM INJ 100 MG in SODIUM CHLORIDE 0.9% 100 ML IV SCH (23:35)
[2017-01-28] MEDS: SODIUM CHLORIDE 0.9% 1,000 ML IV SCH ×3 (00:48→21:32)
[2017-01-28 05:27] LABS: Calcium 7.2 MG/DL (8.5-10.1); Magnesium 1.4 MG/DL (1.8-2.4); Potassium 3.5 MMOL/L (3.5-5.1)
[2017-01-28] MEDS: LINEZOLID INJ 600 MG in PREMIX 1 EACH IV SCH ×2 (06:25→16:59)
[2017-01-28] MEDS: PANTOPRAZOLE 40 MG TABLET PO SCH (09:18)
[2017-01-28] MEDS: CARVEDILOL 12.5 MG TABLET PO SCH ×2 (09:18→17:01)
[2017-01-28] MEDS: SERTRALINE 100 MG TABLET PO SCH (09:18)
[2017-01-28] MEDS: APIXABAN 2.5 MG TABLET PO SCH ×2 (09:18→21:32)
[2017-01-28] MEDS: DILTIAZEM 60 MG TABLET PO SCH ×2 (09:26→21:32)
[2017-01-28] MEDS: DOCUSATE SODIUM 100 MG/10 ML UDCUP PO SCH ×2 (11:35→21:33)
[2017-01-28] MEDS ORDERED: MAGNESIUM SULF RIDER 2 GM in PREMIX 1 EACH IV ONE (12:00)
[2017-01-28] MEDS: ATORVASTATIN 20 MG TABLET PO SCH (21:32)
[2017-01-29] MEDS: DILTIAZEM INJ 100 MG in SODIUM CHLORIDE 0.9% 100 ML IV SCH (00:45)
[2017-01-29] MEDS: cefTRIAXone 1,000 MG in SYRINGE 1 EACH IV SCH (00:46)
[2017-01-29] MEDS: SODIUM CHLORIDE 0.9% 1,000 ML IV SCH ×4 (06:03→18:59)
[2017-01-29] MEDS: LINEZOLID INJ 600 MG in PREMIX 1 EACH IV SCH ×2 (06:04→17:24)
[2017-01-29 06:55] LABS: Calcium 6.8 MG/DL (8.5-10.1); Magnesium 1.5 MG/DL (1.8-2.4); Osmolality,Calculated 282.1 MOS/KG (273-304); Phosphorous 1.8 MG/DL (2.5-4.9); Potassium 2.9 MMOL/L (3.5-5.1); Prealbumin 13.6 MG/DL (20-40)
[2017-01-29] MEDS ORDERED: MAGNESIUM SULF RIDER 2 GM in PREMIX 1 EACH IV PRN (07:56)
[2017-01-29] MEDS: APIXABAN 2.5 MG TABLET PO SCH ×2 (10:09→20:29)
[2017-01-29] MEDS: POTASSIUM CHLORIDE 20 MEQ TABLET PO PRN ×4 (10:09→17:26)
[2017-01-29] MEDS: PANTOPRAZOLE 40 MG TABLET PO SCH (10:09)
[2017-01-29] MEDS: SERTRALINE 100 MG TABLET PO SCH (10:09)
[2017-01-29] MEDS: MAGNESIUM SULF RIDER 2 GM in PREMIX 1 EACH IV PRN (10:10)
[2017-01-29] MEDS: CARVEDILOL 12.5 MG TABLET PO SCH ×2 (10:11→17:25)
[2017-01-29] MEDS: DILTIAZEM 60 MG TABLET PO SCH ×2 (10:11→20:29)
[2017-01-29] MEDS: DOCUSATE SODIUM 100 MG/10 ML UDCUP PO SCH ×2 (10:11→20:29)
[2017-01-29] MEDS: ONDANSETRON 4 MG/2 ML VIAL IV PRN ×2 (10:23→15:06)
[2017-01-29] MEDS: INSULIN REGULAR 100 UNIT/ML SUBCUT SCH ×2 (15:07→19:11)
[2017-01-29] MEDS: ATORVASTATIN 20 MG TABLET PO SCH (20:28)
[2017-01-30] MEDS: POTASSIUM CHLORIDE 20 MEQ TABLET PO PRN ×4 (00:24→07:13)
[2017-01-30] MEDS: cefTRIAXone 1,000 MG in SYRINGE 1 EACH IV SCH (00:25)
[2017-01-30] MEDS: DILTIAZEM INJ 100 MG in SODIUM CHLORIDE 0.9% 100 ML IV SCH (00:27)
[2017-01-30] MEDS: INSULIN REGULAR 100 UNIT/ML SUBCUT SCH ×4 (00:31→17:57)
[2017-01-30] MEDS: SODIUM CHLORIDE 0.9% 1,000 ML IV SCH ×2 (01:37→17:53)
[2017-01-30] MEDS: LINEZOLID INJ 600 MG in PREMIX 1 EACH IV SCH ×2 (05:17→17:38)
[2017-01-30] MEDS: SERTRALINE 100 MG TABLET PO SCH (09:56)
[2017-01-30] MEDS: DILTIAZEM 60 MG TABLET PO SCH ×2 (09:56→22:02)
[2017-01-30] MEDS: APIXABAN 2.5 MG TABLET PO SCH ×2 (09:56→22:01)
[2017-01-30] MEDS: CARVEDILOL 12.5 MG TABLET PO SCH ×2 (09:57→17:37)
[2017-01-30] MEDS: PANTOPRAZOLE 40 MG TABLET PO SCH (09:57)
[2017-01-30] MEDS: ONDANSETRON 4 MG/2 ML VIAL IV PRN (10:28)
[2017-01-30] MEDS: DOCUSATE SODIUM 100 MG/10 ML UDCUP PO SCH ×2 (14:34→22:02)
[2017-01-30] MEDS: METOCLOPRAMIDE 10 MG/2 ML VIAL IV SCH (17:53)
[2017-01-30] MEDS: ATORVASTATIN 20 MG TABLET PO SCH (22:01)
[2017-01-31] MEDS: METOCLOPRAMIDE 10 MG/2 ML VIAL IV SCH ×4 (00:05→17:48)
[2017-01-31] MEDS: cefTRIAXone 1,000 MG in SYRINGE 1 EACH IV SCH (00:05)
[2017-01-31] MEDS: INSULIN REGULAR 100 UNIT/ML SUBCUT SCH ×4 (00:09→18:21)
[2017-01-31] MEDS: DILTIAZEM INJ 100 MG in SODIUM CHLORIDE 0.9% 100 ML IV SCH (03:25)
[2017-01-31] MEDS: SODIUM CHLORIDE 0.9% 1,000 ML IV SCH ×3 (03:25→17:22)
[2017-01-31 05:24] LABS: Calcium 7.5 MG/DL (8.5-10.1); Magnesium 1.4 MG/DL (1.8-2.4); Osmolality,Calculated 277.4 MOS/KG (273-304); Phosphorous 1.5 MG/DL (2.5-4.9); Potassium 4.4 MMOL/L (3.5-5.1)
[2017-01-31] MEDS: LINEZOLID INJ 600 MG in PREMIX 1 EACH IV SCH ×2 (06:04→17:12)
[2017-01-31] MEDS: APIXABAN 2.5 MG TABLET PO SCH ×2 (09:34→21:10)
[2017-01-31] MEDS: PANTOPRAZOLE 40 MG TABLET PO SCH (09:34)
[2017-01-31] MEDS: SERTRALINE 100 MG TABLET PO SCH (09:35)
[2017-01-31] MEDS: CARVEDILOL 12.5 MG TABLET PO SCH ×2 (09:35→17:12)
[2017-01-31] MEDS: DILTIAZEM 60 MG TABLET PO SCH ×2 (09:35→21:09)
[2017-01-31] MEDS: DOCUSATE SODIUM 100 MG/10 ML UDCUP PO SCH ×2 (09:35→21:10)
[2017-01-31] MEDS: MAGNESIUM SULF RIDER 4 GM in PREMIX 1 EACH IV PRN (10:57)
[2017-01-31] MEDS: ATORVASTATIN 20 MG TABLET PO SCH (21:09)
[2017-02-01] MEDS: DILTIAZEM INJ 100 MG in SODIUM CHLORIDE 0.9% 100 ML IV SCH ×2 (00:25→23:45)
[2017-02-01] MEDS: cefTRIAXone 1,000 MG in SYRINGE 1 EACH IV SCH ×2 (00:26→22:51)
[2017-02-01] MEDS: METOCLOPRAMIDE 10 MG/2 ML VIAL IV SCH ×4 (00:30→17:49)
[2017-02-01 05:04] LABS: Basophils # 0.1 10*3/uL (0.0-0.2); Basophils % 0.6 % (0.0-0.8); Eosinophils # 1.1 10*3/uL (0.0-0.87); Eosinophils % 11.7 % (0.00-10.9); Hematocrit 26.8 VOL% (42.0-52.0); Hemoglobin 9.2 GM/DL (14.0-18.0); Immature Granulocytes % 0.4 %; Immature Granulocytes Absolute 0.04 #; Lymphocytes # 1.7 10*3/uL (1.4-4.0); Lymphocytes % 17.9 % (21.2-54.2); Mean Corpuscular HGB Conc 34.3 GM/DL (32-36); Mean Corpuscular Hemoglobin 31 PG (27-34); Mean Corpuscular Volume 90.8 FL (87-102); Monocytes # 0.7 10*3/uL (0.11-0.8); Monocytes % 6.9 % (1.7-12.7); Neutrophils # 6.1 10*3/uL (1.4-7.4); Neutrophils % 62.5 % (38.7-73.9); Platelet Count 78 T/CUMM (130-400); Red Blood Count 2.95 MC/CUMM (3.8-5.5); Red Cell Distribution Width 14.1 % (9.3-17.3); White Blood Count 9.7 T/CUMM (4-12)
[2017-02-01] MEDS: INSULIN REGULAR 100 UNIT/ML SUBCUT SCH ×4 (05:14→18:52)
[2017-02-01] MEDS: LINEZOLID INJ 600 MG in PREMIX 1 EACH IV SCH ×2 (05:38→17:32)
[2017-02-01] MEDS: SODIUM CHLORIDE 0.9% 1,000 ML IV SCH ×3 (05:48→22:02)
[2017-02-01 07:09] LABS: Eosinophils 7 % (0-10); Giant Platelets Few; Hypochromasia 1+; Lymphocytes 19 % (20-55); Ovalocytes Slight; Platelet Estimate Decreased; Segmented Neutrophils 69 % (50-85); Total Cells Counted 100
[2017-02-01 08:07] LABS: Osmolality,Calculated 273.8 MOS/KG (273-304); Potassium 3.2 MMOL/L (3.5-5.1)
[2017-02-01] MEDS: PANTOPRAZOLE 40 MG TABLET PO SCH (09:29)
[2017-02-01] MEDS: APIXABAN 2.5 MG TABLET PO SCH ×2 (09:29→22:40)
[2017-02-01] MEDS: TAMSULOSIN 0.4 MG CAPSULE PO SCH ×2 (09:29→22:40)
[2017-02-01] MEDS: SERTRALINE 100 MG TABLET PO SCH (09:29)
[2017-02-01] MEDS: DOCUSATE SODIUM 100 MG/10 ML UDCUP PO SCH ×2 (09:30→22:55)
[2017-02-01] MEDS: CARVEDILOL 12.5 MG TABLET PO SCH ×2 (09:30→17:32)
[2017-02-01] MEDS: DILTIAZEM 60 MG TABLET PO SCH ×2 (09:33→22:40)
[2017-02-01] MEDS: ZINC OXIDE PASTE 113 GM TUBE TOP SCH ×3 (10:05→22:40)
[2017-02-01] MEDS: ATORVASTATIN 20 MG TABLET PO SCH (22:40)
[2017-02-02] MEDS: METOCLOPRAMIDE 10 MG/2 ML VIAL IV SCH ×4 (00:17→18:35)
[2017-02-02] MEDS: INSULIN REGULAR 100 UNIT/ML SUBCUT SCH ×4 (00:51→18:42)
[2017-02-02 05:35] LABS: Basophils # 0.1 10*3/uL (0.0-0.2); Basophils % 0.6 % (0.0-0.8); Eosinophils # 1.1 10*3/uL (0.0-0.87); Eosinophils % 12.4 % (0.00-10.9); Hematocrit 24.1 VOL% (42.0-52.0); Hemoglobin 8.4 GM/DL (14.0-18.0); Immature Granulocytes % 0.3 %; Immature Granulocytes Absolute 0.03 #; Lymphocytes # 1.8 10*3/uL (1.4-4.0); Lymphocytes % 20.3 % (21.2-54.2); Mean Corpuscular HGB Conc 34.9 GM/DL (32-36); Mean Corpuscular Hemoglobin 32 PG (27-34); Mean Corpuscular Volume 90.3 FL (87-102); Mean Platelet Volume 10.4 FL (9.6-12.0); Monocytes # 0.6 10*3/uL (0.11-0.8); Monocytes % 6.8 % (1.7-12.7); Neutrophils # 5.2 10*3/uL (1.4-7.4); Neutrophils % 59.6 % (38.7-73.9); Red Blood Count 2.67 MC/CUMM (3.8-5.5); Red Cell Distribution Width 13.8 % (9.3-17.3); White Blood Count 8.8 T/CUMM (4-12)
[2017-02-02] MEDS: LINEZOLID INJ 600 MG in PREMIX 1 EACH IV SCH ×2 (05:40→16:46)
[2017-02-02 05:47] LABS: Platelet Count 67 T/CUMM (130-400)
[2017-02-02 05:55] LABS: Calcium 6.8 MG/DL (8.5-10.1); Magnesium 1.6 MG/DL (1.8-2.4); Osmolality,Calculated 274.7 MOS/KG (273-304); Potassium 3.1 MMOL/L (3.5-5.1)
[2017-02-02 05:56] LABS: Band Neutrophils 2 % (0-10); Eosinophils 6 % (0-10); Hypochromasia Slight; Lymphocytes 20 % (20-55); Microcytosis Slight; Ovalocytes Slight; Segmented Neutrophils 65 % (50-85); Total Cells Counted 100
[2017-02-02 05:57] LABS: Platelet Estimate Decreased
[2017-02-02] MEDS ORDERED: SODIUM CHLORIDE 0.9% 1,000 ML IV PRN (08:17)
[2017-02-02] MEDS: PANTOPRAZOLE 40 MG TABLET PO SCH (09:15)
[2017-02-02] MEDS: APIXABAN 2.5 MG TABLET PO SCH ×2 (09:15→22:59)
[2017-02-02] MEDS: SERTRALINE 100 MG TABLET PO SCH (09:15)
[2017-02-02] MEDS: DILTIAZEM 60 MG TABLET PO SCH ×2 (09:15→22:58)
[2017-02-02] MEDS: CARVEDILOL 12.5 MG TABLET PO SCH ×2 (09:15→16:46)
[2017-02-02] MEDS: POTASSIUM CHLORIDE 20 MEQ/15 ML UDCUP PER TUBE PRN ×4 (09:16→18:35)
[2017-02-02] MEDS: DOCUSATE SODIUM 100 MG/10 ML UDCUP PO SCH ×2 (10:25→22:58)
[2017-02-02] MEDS: MAGNESIUM SULF RIDER 2 GM in PREMIX 1 EACH IV PRN (10:25)
[2017-02-02] MEDS: ZINC OXIDE PASTE 113 GM TUBE TOP SCH ×2 (10:25→23:00)
[2017-02-02] MEDS: DUTASTERIDE 0.5 MG CAPSULE PO SCH (13:28)
[2017-02-02] MEDS: SODIUM CHLORIDE 0.9% 1,000 ML IV SCH (13:28)
[2017-02-02] MEDS: ATORVASTATIN 20 MG TABLET PO SCH (22:59)
[2017-02-02] MEDS: TAMSULOSIN 0.4 MG CAPSULE PO SCH (22:59)
[2017-02-02] MEDS: DILTIAZEM INJ 100 MG in SODIUM CHLORIDE 0.9% 100 ML IV SCH (23:00)
[2017-02-02] MEDS: cefTRIAXone 1,000 MG in SYRINGE 1 EACH IV SCH (23:03)
[2017-02-03] MEDS: INSULIN REGULAR 100 UNIT/ML SUBCUT SCH ×4 (00:47→19:10)
[2017-02-03] MEDS: SODIUM CHLORIDE 0.9% 1,000 ML IV SCH ×2 (00:55→18:12)
[2017-02-03] MEDS: METOCLOPRAMIDE 10 MG/2 ML VIAL IV SCH ×4 (01:00→18:01)
[2017-02-03 01:28] LABS: Calcium 7.1 MG/DL (8.5-10.1); Magnesium 1.4 MG/DL (1.8-2.4); Osmolality,Calculated 273.7 MOS/KG (273-304); Phosphorous 1.9 MG/DL (2.5-4.9); Potassium 3.4 MMOL/L (3.5-5.1); Prealbumin 17.5 MG/DL (20-40)
[2017-02-03] MEDS: MAGNESIUM SULF RIDER 4 GM in PREMIX 1 EACH IV PRN (02:02)
[2017-02-03] MEDS: POTASSIUM CHLORIDE 20 MEQ/15 ML UDCUP PER TUBE PRN ×4 (02:02→08:28)
[2017-02-03] MEDS: LINEZOLID INJ 600 MG in PREMIX 1 EACH IV SCH ×2 (07:05→18:06)
[2017-02-03] MEDS: APIXABAN 2.5 MG TABLET PO SCH ×2 (08:28→22:35)
[2017-02-03] MEDS: DOCUSATE SODIUM 100 MG/10 ML UDCUP PO SCH ×2 (08:28→22:34)
[2017-02-03] MEDS: SERTRALINE 100 MG TABLET PO SCH (08:28)
[2017-02-03] MEDS: CARVEDILOL 12.5 MG TABLET PO SCH ×2 (08:28→18:06)
[2017-02-03] MEDS: ZINC OXIDE PASTE 113 GM TUBE TOP SCH ×2 (08:28→20:20)
[2017-02-03] MEDS: DILTIAZEM 60 MG TABLET PO SCH ×2 (08:28→22:34)
[2017-02-03] MEDS: DUTASTERIDE 0.5 MG CAPSULE PO SCH (08:28)
[2017-02-03] MEDS: PANTOPRAZOLE 40 MG TABLET PO SCH (08:28)
[2017-02-03] MEDS: ONDANSETRON 4 MG/2 ML VIAL IV PRN (08:40)
[2017-02-03] MEDS: POTASSIUM PHOS/SOD PHOS 250 MG TABLET PO SCH ×2 (18:06→22:35)
[2017-02-03] MEDS: ATORVASTATIN 20 MG TABLET PO SCH (22:34)
[2017-02-03] MEDS: TAMSULOSIN 0.4 MG CAPSULE PO SCH (22:34)
[2017-02-03] MEDS: cefTRIAXone 1,000 MG in SYRINGE 1 EACH IV SCH (22:36)
[2017-02-03] MEDS: DILTIAZEM INJ 100 MG in SODIUM CHLORIDE 0.9% 100 ML IV SCH (22:54)
[2017-02-04] MEDS: METOCLOPRAMIDE 10 MG/2 ML VIAL IV SCH ×3 (00:59→17:24)
[2017-02-04] MEDS: SODIUM CHLORIDE 0.9% 1,000 ML IV SCH ×2 (03:02→17:25)
[2017-02-04 04:00] LABS: Magnesium 1.7 MG/DL (1.8-2.4); Potassium 4.2 MMOL/L (3.5-5.1)
[2017-02-04] MEDS: INSULIN REGULAR 100 UNIT/ML SUBCUT SCH ×4 (05:42→17:27)
[2017-02-04] MEDS: LINEZOLID INJ 600 MG in PREMIX 1 EACH IV SCH ×2 (06:45→17:25)
[2017-02-04] MEDS ORDERED: MAGNESIUM CHLORIDE 64 MG TABLET PO SCH (09:00)
[2017-02-04] MEDS: CARVEDILOL 12.5 MG TABLET PO SCH ×2 (09:17→17:25)
[2017-02-04] MEDS: SERTRALINE 100 MG TABLET PO SCH (09:17)
[2017-02-04] MEDS: MAGNESIUM SULF RIDER 2 GM in PREMIX 1 EACH IV PRN (09:18)
[2017-02-04] MEDS: PANTOPRAZOLE 40 MG TABLET PO SCH (09:18)
[2017-02-04] MEDS: DILTIAZEM 60 MG TABLET PO SCH (09:18)
[2017-02-04] MEDS: DUTASTERIDE 0.5 MG CAPSULE PO SCH (09:18)
[2017-02-04] MEDS: APIXABAN 2.5 MG TABLET PO SCH (09:18)
[2017-02-04] MEDS: ZINC OXIDE PASTE 113 GM TUBE TOP SCH (09:19)
[2017-02-04] MEDS: DOCUSATE SODIUM 100 MG/10 ML UDCUP PO SCH (09:20)
[2017-02-04] MEDS: POTASSIUM PHOS/SOD PHOS 250 MG TABLET PO SCH ×2 (09:47→17:24)
[2017-02-04 17:11] VITALS: BP 172/91
== END 2017-02-04 17:42 | disposition hospice, home (50) | DRG 683 ==
LOC: N.2E → N.TELES 22:59
PROVIDERS: ADMIT Family Medicine; ATTEND Family Medicine
PROC: EGDWPEG (ICD-10-PCS; 2017-01-27 09:05)

== ENCOUNTER 2017-02-20 13:45 | Inpatient (IN) ==
[2017-02-20] MEDS ORDERED: cefTRIAXone 1,000 MG in SODIUM CHLORIDE 0.9% 100 ML IV STA (14:33)
[2017-02-20 14:41] LABS: Basophils % 0.3 % (0.0-0.8); Eosinophils % 0.4 % (0.00-10.9); Hemoglobin 7.7 GM/DL (14.0-18.0); Immature Granulocytes % 0.9 %; Lymphocytes % 8.9 % (21.2-54.2); Mean Corpuscular HGB Conc 33.5 GM/DL (32-36); Mean Corpuscular Hemoglobin 32 PG (27-34); Mean Corpuscular Volume 94.3 FL (87-102); Mean Platelet Volume 10.1 FL (9.6-12.0); Monocytes % 8.7 % (1.7-12.7); Neutrophils # 9.1 10*3/uL (1.4-7.4); Neutrophils % 80.8 % (38.7-73.9); Platelet Count 266 T/CUMM (130-400); Red Blood Count 2.44 MC/CUMM (3.8-5.5); Red Cell Distribution Width 15.4 % (9.3-17.3); White Blood Count 11.3 T/CUMM (4-12)
[2017-02-20 14:43] LABS: ABG Base Excess -12.1 MMOL/L (-2.5-2.5); ABG HCO3 14.1 MMOL/L (20-26); ABG Oxygen Saturation 17.3 % (95-100); ABG PCO2 27.9 MM HG (35-48); ABG PH 7.295 (7.35-7.45); ABG TCO2 13.5 MMOL/L (23-27)
[2017-02-20 15:01] LABS: ABG PO2 18.5 MM HG (80-95)
[2017-02-20] MEDS ORDERED: cefTRIAXone 500 MG VIAL ONE (15:08)
[2017-02-20] MEDS ORDERED: PANTOPRAZOLE INJ 80 MG in SODIUM CHLORIDE 0.9% 100 ML IV ONE (15:10)
[2017-02-20] MEDS ORDERED: SODIUM CHLORIDE 0.9% 500 ML IV STA (15:10)
[2017-02-20 15:17] LABS: Alanine Aminotransferase 15 U/L (16-61); Albumin 2.3 G/DL (3.4-5.0); Alkaline Phosphatase 86 U/L (45-117); Aspartate Amino Transferase 20 U/L (0-37); Blood Urea Nitrogen 24 MG/DL (7-18); Calcium 8.1 MG/DL (8.5-10.1); Glucose 138 MG/DL (74-106); Osmolality,Calculated 267.7 MOS/KG (273-304); Potassium 3.9 MMOL/L (3.5-5.1); Sodium 131 MMOL/L (136-145); Total Protein 5.6 G/DL (6.4-8.3); Troponin I Only < 0.015 NG/ML (0.00-0.045)
[2017-02-20] MEDS ORDERED: PANTOPRAZOLE 40 MG VIAL IV ONE (15:39)
[2017-02-20 15:47] LABS: Band Neutrophils 36 % (0-10); Eosinophils 1 % (0-10); Lymphocytes 8 % (20-55); Metamyelocytes 1 %; Myelocytes 1 %; Platelet Estimate Normal; Segmented Neutrophils 48 % (50-85); Total Cells Counted 100
[2017-02-20 17:20] LABS: Apearance,Urine CLOUDY (Clear); Bacteria,Urine Moderate /HPF (Few); Bilirubin,Urine Negative (Negative); Blood, Urine Large mg/dL (Negative); Glucose,Urine (UA) Negative (Negative); Ketones,Urine Negative (Negative); Mucus,Urine Few /LPF (Occasional); Nitrite,Urine Negative (Negative); Protein,Urine 100 MG/DL; RBC,Urine 100 /HPF (0-4); Urine Color Brown (Yellow); Urine Specific Gravity 1.018 (1.001-1.035); Urine Urobilinogen < 2.0 EU/DL (0.2-1.0); WBC,Urine 291 /HPF (0-6)
[2017-02-20] MEDS: ALBUTEROL 2.5 MG/3 ML NEB RESP TX SCH ×2 (19:20→19:21)
[2017-02-20] MEDS: SODIUM CHLORIDE 0.9% 1,000 ML IV SCH (20:56)
[2017-02-20] MEDS: DOCUSATE SODIUM 100 MG CAPSULE PO SCH (21:32)
[2017-02-20] MEDS: AZITHROMYCIN INJ 500 MG in SODIUM CHLORIDE 0.9% 250 ML IV SCH (22:35)
[2017-02-20] MEDS ORDERED: SODIUM CHLORIDE 0.9% 1,000 ML IV PRN (22:49)
[2017-02-21] MEDS ORDERED: diphenhydrAMINE 25 MG/10 ML UDCUP PEG ONE (03:00)
[2017-02-21] MEDS ORDERED: ACETAMINOPHEN 325 MG/10.15 ML UDCUP PO ONE (03:00)
[2017-02-21] MEDS ORDERED: FUROSEMIDE 20 MG/2 ML VIAL IV ONE (03:00)
[2017-02-21] MEDS ORDERED: ACETAMINOPHEN 650 MG SUPP RECTAL PRN (06:51)
[2017-02-21] MEDS: DOCUSATE SODIUM 100 MG CAPSULE PO SCH ×2 (11:36→21:19)
[2017-02-21] MEDS: PANTOPRAZOLE 40 MG VIAL IV SCH (11:46)
[2017-02-21] MEDS: cefTRIAXone 1,000 MG in SYRINGE 1 EACH IV SCH (11:48)
[2017-02-21] MEDS: MORPHINE 2 MG/1 ML SYRINGE IV PRN (11:51)
[2017-02-21] MEDS: SERTRALINE 100 MG TABLET PO SCH (11:55)
[2017-02-21] MEDS: ZINC OXIDE PASTE 113 GM TUBE TOP SCH ×2 (17:17→21:19)
[2017-02-21] MEDS: SODIUM CHLORIDE 0.9% 1,000 ML IV SCH ×2 (17:54)
[2017-02-21] MEDS: AZITHROMYCIN INJ 500 MG in SODIUM CHLORIDE 0.9% 250 ML IV SCH (21:23)
[2017-02-22] MEDS: MORPHINE 2 MG/1 ML SYRINGE IV PRN (00:57)
[2017-02-22 06:33] LABS: Calcium 7.6 MG/DL (8.5-10.1); Magnesium 1.9 MG/DL (1.8-2.4); Osmolality,Calculated 278.2 MOS/KG (273-304); Potassium 3.2 MMOL/L (3.5-5.1); Prealbumin 11.2 MG/DL (20-40)
[2017-02-22] MEDS: LEVOTHYROXINE 100 MCG TABLET PO SCH (06:33)
[2017-02-22] MEDS: SODIUM CHLORIDE 0.9% 1,000 ML IV SCH ×3 (06:34→21:28)
[2017-02-22 06:35] LABS: % Iron Saturation 10.4 % (18-50); Ferritin 1265.4 ng/ml (26-388)
[2017-02-22 07:23] LABS: Basophils % 0.3 % (0.0-0.8); Eosinophils % 0.2 % (0.00-10.9); Hematocrit 25.7 VOL% (42.0-52.0); Hemoglobin 8.6 GM/DL (14.0-18.0); Immature Granulocytes % 1.3 %; Immature Granulocytes Absolute 0.12 #; Lymphocytes # 0.8 10*3/uL (1.4-4.0); Lymphocytes % 8.8 % (21.2-54.2); Mean Corpuscular HGB Conc 33.5 GM/DL (32-36); Mean Corpuscular Hemoglobin 31 PG (27-34); Mean Corpuscular Volume 91.8 FL (87-102); Mean Platelet Volume 10.1 FL (9.6-12.0); Monocytes # 0.6 10*3/uL (0.11-0.8); Monocytes % 6.1 % (1.7-12.7); Neutrophils # 7.9 10*3/uL (1.4-7.4); Neutrophils % 83.3 % (38.7-73.9); Platelet Count 169 T/CUMM (130-400); Red Cell Distribution Width 15.7 % (9.3-17.3); White Blood Count 9.5 T/CUMM (4-12)
[2017-02-22 07:51] LABS: Band Neutrophils 1 % (0-10); Calcium 7.2 MG/DL (8.5-10.1); Eosinophils 1 % (0-10); Lymphocytes 5 % (20-55); Metamyelocytes 1 %; Osmolality,Calculated 279.1 MOS/KG (273-304); Potassium 3.3 MMOL/L (3.5-5.1); Segmented Neutrophils 85 % (50-85); Total Cells Counted 100
[2017-02-22 07:52] LABS: Hypochromasia 1+; Microcytosis Slight
[2017-02-22 07:53] LABS: Platelet Estimate Adequate
[2017-02-22] MEDS ORDERED: IRON DEXTRAN 25 MG in SYRINGE 1 EACH IV ONE (09:00)
[2017-02-22] MEDS: POTASSIUM PHOS/SOD PHOS 250 MG TABLET PO SCH ×2 (10:36→21:28)
[2017-02-22] MEDS: MAGNESIUM CHLORIDE 64 MG TABLET PO SCH (10:36)
[2017-02-22] MEDS: DOCUSATE SODIUM 100 MG CAPSULE PO SCH ×2 (10:37→21:28)
[2017-02-22] MEDS: CARVEDILOL 25 MG TABLET PO SCH ×2 (10:37→16:08)
[2017-02-22] MEDS: SERTRALINE 100 MG TABLET PO SCH (10:37)
[2017-02-22] MEDS: ZINC OXIDE PASTE 113 GM TUBE TOP SCH ×2 (10:37→21:28)
[2017-02-22] MEDS: PANTOPRAZOLE 40 MG VIAL IV SCH (10:58)
[2017-02-22] MEDS: cefTRIAXone 1,000 MG in SYRINGE 1 EACH IV SCH (11:00)
[2017-02-22] MEDS ORDERED: IRON DEXTRAN IV ONE (12:30)
[2017-02-22] MEDS ORDERED: SODIUM CHLORIDE 0.9% IV ONE (12:30)
[2017-02-22] MEDS: MORPHINE 10 MG/1 ML VIAL IV PRN (12:40)
[2017-02-22] MEDS: AZITHROMYCIN INJ 500 MG in SODIUM CHLORIDE 0.9% 250 ML IV SCH (21:28)
[2017-02-23] MEDS: LEVOTHYROXINE 100 MCG TABLET PO SCH (05:44)
[2017-02-23] MEDS: PANTOPRAZOLE 40 MG VIAL IV SCH (10:34)
[2017-02-23] MEDS: cefTRIAXone 1,000 MG in SYRINGE 1 EACH IV SCH (10:35)
[2017-02-23] MEDS: MAGNESIUM CHLORIDE 64 MG TABLET PO SCH (10:37)
[2017-02-23] MEDS: DOCUSATE SODIUM 100 MG CAPSULE PO SCH ×2 (10:37→21:11)
[2017-02-23] MEDS: SERTRALINE 100 MG TABLET PO SCH (10:37)
[2017-02-23] MEDS: POTASSIUM PHOS/SOD PHOS 250 MG TABLET PO SCH ×2 (10:37→20:48)
[2017-02-23] MEDS: CARVEDILOL 25 MG TABLET PO SCH ×2 (10:37→18:07)
[2017-02-23] MEDS: ZINC OXIDE PASTE 113 GM TUBE TOP SCH ×2 (10:37→20:48)
[2017-02-23] MEDS ORDERED: BISACODYL 5 MG TABLET PO ONE (12:00)
[2017-02-23] MEDS: MORPHINE 10 MG/1 ML VIAL IV PRN (12:52)
[2017-02-23] MEDS ORDERED: POLYETHYLENE GLYCOL POWDER 255 GM BOTTLE PEG ONE (18:00)
[2017-02-23] MEDS: AZITHROMYCIN INJ 500 MG in SODIUM CHLORIDE 0.9% 250 ML IV SCH (20:47)
[2017-02-24 06:54] LABS: Basophils % 0.2 % (0.0-0.8); Eosinophils # 0.1 10*3/uL (0.0-0.87); Eosinophils % 0.8 % (0.00-10.9); Hematocrit 21.6 VOL% (42.0-52.0); Immature Granulocytes % 2.6 %; Immature Granulocytes Absolute 0.32 #; Lymphocytes # 1.3 10*3/uL (1.4-4.0); Lymphocytes % 10.7 % (21.2-54.2); Mean Corpuscular HGB Conc 33.8 GM/DL (32-36); Mean Corpuscular Hemoglobin 31 PG (27-34); Mean Corpuscular Volume 91.1 FL (87-102); Monocytes # 0.9 10*3/uL (0.11-0.8); Monocytes % 7.2 % (1.7-12.7); NRBC # 0.02 10*3/uL; Neutrophils # 9.8 10*3/uL (1.4-7.4); Neutrophils % 78.5 % (38.7-73.9); Platelet Count 138 T/CUMM (130-400); Red Blood Count 2.37 MC/CUMM (3.8-5.5); Red Cell Distribution Width 15.9 % (9.3-17.3); White Blood Count 12.5 T/CUMM (4-12)
[2017-02-24 06:55] LABS: Hemoglobin 7.3 GM/DL (14.0-18.0)
[2017-02-24 07:02] LABS: Calcium 6.7 MG/DL (8.5-10.1); Magnesium 2.1 MG/DL (1.8-2.4); Osmolality,Calculated 281.7 MOS/KG (273-304); Potassium 2.9 MMOL/L (3.5-5.1)
[2017-02-24 07:06] LABS: Band Neutrophils 2 % (0-10); Giant Platelets Few; Hypochromasia 1+; Lymphocytes 8 % (20-55); Microcytosis Slight; Ovalocytes Slight; Platelet Estimate Normal; Segmented Neutrophils 84 % (50-85); Total Cells Counted 100
[2017-02-24] MEDS: POTASSIUM PHOS/SOD PHOS 250 MG TABLET PO SCH ×2 (08:46→21:16)
[2017-02-24] MEDS: SERTRALINE 100 MG TABLET PO SCH (08:46)
[2017-02-24] MEDS: MAGNESIUM CHLORIDE 64 MG TABLET PO SCH (08:46)
[2017-02-24] MEDS: DOCUSATE SODIUM 100 MG CAPSULE PO SCH ×3 (08:46→21:54)
[2017-02-24] MEDS: PANTOPRAZOLE 40 MG VIAL IV SCH (08:47)
[2017-02-24] MEDS: LEVOTHYROXINE 100 MCG TABLET PO SCH (08:47)
[2017-02-24] MEDS: cefTRIAXone 1,000 MG in SYRINGE 1 EACH IV SCH (08:47)
[2017-02-24] MEDS: CARVEDILOL 25 MG TABLET PO SCH ×2 (08:47→18:12)
[2017-02-24] MEDS ORDERED: LIDOCAINE 2% 5 ML VIAL ONE (08:50)
[2017-02-24] MEDS ORDERED: PROPOFOL 200 MG/20 ML VIAL IV ONE (08:50)
[2017-02-24] MEDS ORDERED: PHENYLEPHRINE 1 MG/10 ML SYRINGE IV ONE (08:50)
[2017-02-24] MEDS ORDERED: POTASSIUM CHLORIDE INJ 30 MEQ in SODIUM CHLORIDE 0.9% 500 ML IV ONE (09:00)
[2017-02-24] MEDS: ZINC OXIDE PASTE 113 GM TUBE TOP SCH ×2 (09:10→21:16)
[2017-02-24] MEDS: AZITHROMYCIN INJ 500 MG in SODIUM CHLORIDE 0.9% 250 ML IV SCH (21:15)
[2017-02-25] MEDS: SODIUM CHLORIDE 0.9% 1,000 ML IV SCH ×2 (03:30→04:32)
[2017-02-25] MEDS: LEVOTHYROXINE 100 MCG TABLET PO SCH (07:34)
[2017-02-25] MEDS: cefTRIAXone 1,000 MG in SYRINGE 1 EACH IV SCH (09:07)
[2017-02-25] MEDS: PANTOPRAZOLE 40 MG VIAL IV SCH (09:07)
[2017-02-25 09:08] LABS: Basophils % 0.1 % (0.0-0.8); Eosinophils # 0.1 10*3/uL (0.0-0.87); Eosinophils % 1.3 % (0.00-10.9); Hematocrit 21.3 VOL% (42.0-52.0); Hemoglobin 7.2 GM/DL (14.0-18.0); Immature Granulocytes % 5.6 %; Immature Granulocytes Absolute 0.46 #; Lymphocytes # 1.1 10*3/uL (1.4-4.0); Lymphocytes % 13.7 % (21.2-54.2); Mean Corpuscular HGB Conc 33.8 GM/DL (32-36); Mean Corpuscular Hemoglobin 31 PG (27-34); Mean Corpuscular Volume 91.4 FL (87-102); Monocytes # 0.7 10*3/uL (0.11-0.8); Monocytes % 8.3 % (1.7-12.7); Neutrophils # 5.8 10*3/uL (1.4-7.4); Platelet Count 133 T/CUMM (130-400); Red Blood Count 2.33 MC/CUMM (3.8-5.5); Red Cell Distribution Width 15.9 % (9.3-17.3); White Blood Count 8.2 T/CUMM (4-12)
[2017-02-25] MEDS: FUROSEMIDE 20 MG TABLET PO PRN (09:08)
[2017-02-25] MEDS: MAGNESIUM CHLORIDE 64 MG TABLET PO SCH (09:08)
[2017-02-25] MEDS: CARVEDILOL 25 MG TABLET PO SCH ×2 (09:08→16:48)
[2017-02-25] MEDS: SERTRALINE 100 MG TABLET PO SCH (09:08)
[2017-02-25] MEDS: POTASSIUM PHOS/SOD PHOS 250 MG TABLET PO SCH ×2 (09:08→21:09)
[2017-02-25] MEDS: ZINC OXIDE PASTE 113 GM TUBE TOP SCH ×2 (09:08→21:09)
[2017-02-25] MEDS: ACETAMINOPHEN 325 MG TABLET PO PRN ×2 (09:12→16:52)
[2017-02-25] MEDS: DOCUSATE SODIUM 100 MG CAPSULE PO SCH ×2 (09:22→21:09)
[2017-02-25 09:39] LABS: Magnesium 1.9 MG/DL (1.8-2.4); Osmolality,Calculated 285.5 MOS/KG (273-304); Potassium 3.3 MMOL/L (3.5-5.1)
[2017-02-25 09:43] LABS: Band Neutrophils 10 % (0-10); Hypochromasia 2+; Lymphocytes 14 % (20-55); Microcytosis 1+; Platelet Estimate Decreased; Segmented Neutrophils 66 % (50-85); Total Cells Counted 100
[2017-02-25] MEDS ORDERED: FUROSEMIDE 20 MG/2 ML VIAL IV PRN (10:29)
[2017-02-25] MEDS: diphenhydrAMINE 25 MG/10 ML UDCUP PO PRN ×2 (12:03→16:50)
[2017-02-25] MEDS: POTASSIUM CHLORIDE 20 MEQ/15 ML UDCUP PER TUBE PRN ×3 (14:46→21:10)
[2017-02-25] MEDS: methylPREDNISolone SOD SUC 40 MG/1 ML VIAL IV SCH (14:46)
[2017-02-25] MEDS: ENOXAPARIN 40 MG/0.4 ML SYRINGE SUBCUT SCH (21:15)
[2017-02-26] MEDS: methylPREDNISolone SOD SUC 40 MG/1 ML VIAL IV SCH ×4 (00:25→22:53)
[2017-02-26] MEDS: SODIUM CHLORIDE 0.9% 1,000 ML IV SCH ×2 (04:02→23:43)
[2017-02-26 05:06] LABS: Hematocrit 30.2 VOL% (42.0-52.0)
[2017-02-26] MEDS: ACETAMINOPHEN 325 MG TABLET PO PRN ×2 (06:24→23:42)
[2017-02-26] MEDS: LEVOTHYROXINE 100 MCG TABLET PO SCH (06:25)
[2017-02-26] MEDS: PANTOPRAZOLE 40 MG VIAL IV SCH (09:18)
[2017-02-26] MEDS: cefTRIAXone 1,000 MG in SYRINGE 1 EACH IV SCH (09:18)
[2017-02-26] MEDS: ZINC OXIDE PASTE 113 GM TUBE TOP SCH ×2 (09:18→22:53)
[2017-02-26] MEDS: MAGNESIUM CHLORIDE 64 MG TABLET PO SCH (09:19)
[2017-02-26] MEDS: POTASSIUM PHOS/SOD PHOS 250 MG TABLET PO SCH ×2 (09:19→22:52)
[2017-02-26] MEDS: FUROSEMIDE 20 MG TABLET PO PRN (09:19)
[2017-02-26] MEDS: DOCUSATE SODIUM 100 MG CAPSULE PO SCH ×2 (09:19→22:52)
[2017-02-26] MEDS: SERTRALINE 100 MG TABLET PO SCH (09:19)
[2017-02-26] MEDS: CARVEDILOL 25 MG TABLET PO SCH ×2 (09:19→16:47)
[2017-02-26] MEDS: ENOXAPARIN 40 MG/0.4 ML SYRINGE SUBCUT SCH (22:53)
[2017-02-27 05:56] LABS: Basophils # 0.1 10*3/uL (0.0-0.2); Basophils % 0.4 % (0.0-0.8); Eosinophils % 0.1 % (0.00-10.9); Hematocrit 30.2 VOL% (42.0-52.0); Hemoglobin 9.7 GM/DL (14.0-18.0); Immature Granulocytes % 9.5 %; Immature Granulocytes Absolute 1.53 #; Lymphocytes # 1.3 10*3/uL (1.4-4.0); Lymphocytes % 7.7 % (21.2-54.2); Mean Corpuscular HGB Conc 32.1 GM/DL (32-36); Mean Corpuscular Hemoglobin 30 PG (27-34); Mean Corpuscular Volume 92.6 FL (87-102); Mean Platelet Volume 11.4 FL (9.6-12.0); Monocytes # 0.7 10*3/uL (0.11-0.8); Monocytes % 4.1 % (1.7-12.7); Neutrophils # 12.6 10*3/uL (1.4-7.4); Neutrophils % 78.2 % (38.7-73.9); Platelet Count 140 T/CUMM (130-400); Red Blood Count 3.26 MC/CUMM (3.8-5.5); Red Cell Distribution Width 17.2 % (9.3-17.3); White Blood Count 16.1 T/CUMM (4-12)
[2017-02-27 06:22] LABS: Calcium 6.9 MG/DL (8.5-10.1); Osmolality,Calculated 295.3 MOS/KG (273-304); Potassium 3.6 MMOL/L (3.5-5.1)
[2017-02-27] MEDS: LEVOTHYROXINE 100 MCG TABLET PO SCH (06:54)
[2017-02-27] MEDS: methylPREDNISolone SOD SUC 40 MG/1 ML VIAL IV SCH ×3 (06:54→22:24)
[2017-02-27] MEDS: PANTOPRAZOLE 40 MG VIAL IV SCH (08:09)
[2017-02-27] MEDS: MAGNESIUM CHLORIDE 64 MG TABLET PO SCH (08:10)
[2017-02-27] MEDS: CARVEDILOL 25 MG TABLET PO SCH ×2 (08:11→16:55)
[2017-02-27] MEDS: FUROSEMIDE 20 MG TABLET PO PRN (08:11)
[2017-02-27] MEDS: POTASSIUM PHOS/SOD PHOS 250 MG TABLET PO SCH ×2 (08:11→22:23)
[2017-02-27] MEDS: SERTRALINE 100 MG TABLET PO SCH (08:11)
[2017-02-27] MEDS: DOCUSATE SODIUM 100 MG CAPSULE PO SCH ×2 (08:11→22:23)
[2017-02-27] MEDS: ZINC OXIDE PASTE 113 GM TUBE TOP SCH ×2 (08:12→22:33)
[2017-02-27 08:32] LABS: Band Neutrophils 2 % (0-10); Giant Platelets Few; Hypochromasia Slight; Lymphocytes 8 % (20-55); Microcytosis Slight; Ovalocytes Slight; Platelet Estimate Normal; Segmented Neutrophils 87 % (50-85); Total Cells Counted 100
[2017-02-27] MEDS: ACETAMINOPHEN 325 MG TABLET PO PRN (13:15)
[2017-02-27] MEDS: SODIUM CHLORIDE 0.9% 1,000 ML IV SCH (19:50)
[2017-02-27] MEDS: ENOXAPARIN 40 MG/0.4 ML SYRINGE SUBCUT SCH (22:23)
[2017-02-28 06:29] LABS: Calcium 6.9 MG/DL (8.5-10.1); Magnesium 2.2 MG/DL (1.8-2.4); Osmolality,Calculated 294.1 MOS/KG (273-304); Potassium 3.6 MMOL/L (3.5-5.1); Prealbumin 18.2 MG/DL (20-40)
[2017-02-28] MEDS: LEVOTHYROXINE 100 MCG TABLET PO SCH (07:40)
[2017-02-28] MEDS: ZINC OXIDE PASTE 113 GM TUBE TOP SCH ×2 (08:20→22:14)
[2017-02-28] MEDS: methylPREDNISolone SOD SUC 40 MG/1 ML VIAL IV SCH (08:20)
[2017-02-28] MEDS: DOCUSATE SODIUM 100 MG CAPSULE PO SCH ×2 (08:20→22:15)
[2017-02-28] MEDS: PANTOPRAZOLE 40 MG VIAL IV SCH (08:20)
[2017-02-28] MEDS: MAGNESIUM CHLORIDE 64 MG TABLET PO SCH (08:21)
[2017-02-28] MEDS: POTASSIUM PHOS/SOD PHOS 250 MG TABLET PO SCH ×2 (08:21→22:14)
[2017-02-28] MEDS: CARVEDILOL 25 MG TABLET PO SCH ×2 (08:21→16:14)
[2017-02-28] MEDS: SERTRALINE 100 MG TABLET PO SCH (08:21)
[2017-02-28] MEDS: POTASSIUM CHLORIDE 20 MEQ/15 ML UDCUP PER TUBE PRN ×2 (11:32→16:15)
[2017-02-28] MEDS: SODIUM CHLORIDE 0.9% 1,000 ML IV SCH (16:14)
[2017-02-28] MEDS: ONDANSETRON 4 MG/2 ML VIAL IV PRN (22:13)
[2017-02-28] MEDS: ENOXAPARIN 40 MG/0.4 ML SYRINGE SUBCUT SCH (22:15)
[2017-03-01] MEDS: MORPHINE 10 MG/1 ML VIAL IV PRN ×4 (02:34→23:03)
[2017-03-01] MEDS: ONDANSETRON 4 MG/2 ML VIAL IV PRN (05:03)
[2017-03-01] MEDS ORDERED: LORazepam 2 MG/1 ML VIAL IV PRN (08:40)
[2017-03-01] MEDS ORDERED: FUROSEMIDE 20 MG/2 ML VIAL IV ONE (09:00)
[2017-03-01] MEDS: PANTOPRAZOLE 40 MG VIAL IV SCH (09:10)
[2017-03-01] MEDS: DOCUSATE SODIUM 100 MG CAPSULE PO SCH ×2 (09:10→21:07)
[2017-03-01] MEDS: LEVOTHYROXINE 100 MCG TABLET PO SCH (09:11)
[2017-03-01] MEDS: ZINC OXIDE PASTE 113 GM TUBE TOP SCH ×2 (09:11→21:07)
[2017-03-01 09:28] LABS: Basophils # 0.1 10*3/uL (0.0-0.2); Basophils % 0.4 % (0.0-0.8); Eosinophils # 0.1 10*3/uL (0.0-0.87); Eosinophils % 0.5 % (0.00-10.9); Hematocrit 34.4 VOL% (42.0-52.0); Hemoglobin 10.8 GM/DL (14.0-18.0); Immature Granulocytes % 12.1 %; Immature Granulocytes Absolute 2.51 #; Lymphocytes % 9.4 % (21.2-54.2); Mean Corpuscular HGB Conc 31.4 GM/DL (32-36); Mean Corpuscular Hemoglobin 30 PG (27-34); Mean Corpuscular Volume 95.8 FL (87-102); Mean Platelet Volume 11.4 FL (9.6-12.0); Monocytes # 1.3 10*3/uL (0.11-0.8); Monocytes % 6.1 % (1.7-12.7); NRBC # 0.02 10*3/uL; Neutrophils # 14.8 10*3/uL (1.4-7.4); Neutrophils % 71.5 % (38.7-73.9); Platelet Count 204 T/CUMM (130-400); Red Blood Count 3.59 MC/CUMM (3.8-5.5); Red Cell Distribution Width 17.8 % (9.3-17.3); White Blood Count 20.8 T/CUMM (4-12)
[2017-03-01] MEDS: CARVEDILOL 25 MG TABLET PO SCH ×2 (09:30→16:30)
[2017-03-01] MEDS: POTASSIUM PHOS/SOD PHOS 250 MG TABLET PO SCH ×2 (09:30→21:07)
[2017-03-01] MEDS: predniSONE 20 MG TABLET PO SCH (09:30)
[2017-03-01] MEDS: MAGNESIUM CHLORIDE 64 MG TABLET PO SCH (09:30)
[2017-03-01] MEDS: SERTRALINE 100 MG TABLET PO SCH (09:31)
[2017-03-01 09:47] LABS: Band Neutrophils 3 % (0-10); Lymphocytes 6 % (20-55); Metamyelocytes 1 %; Nucleated Red Blood Cells 1 (0-5); Segmented Neutrophils 85 % (50-85); Total Cells Counted 100
[2017-03-01 09:48] LABS: Hypochromasia Slight; Microcytosis Slight; Platelet Estimate Normal
[2017-03-01 09:49] LABS: Ovalocytes Slight
[2017-03-01 10:02] LABS: Alanine Aminotransferase 38 U/L (16-61); Albumin 1.8 G/DL (3.4-5.0); Alkaline Phosphatase 130 U/L (45-117); Aspartate Amino Transferase 16 U/L (0-37); Bilirubin,Total < 0.39 MG/DL (0.2-1.0); Blood Urea Nitrogen 44 MG/DL (7-18); Calcium 7.2 MG/DL (8.5-10.1); Glucose 104 MG/DL (74-106); Potassium 4.2 MMOL/L (3.5-5.1); Sodium 143 MMOL/L (136-145); Total Protein 4.8 G/DL (6.4-8.3)
[2017-03-01] MEDS: SODIUM CHLORIDE 0.9% 1,000 ML IV SCH (11:32)
[2017-03-01 11:53] LABS: Apearance,Urine Slightly Hazy (Clear); Bacteria,Urine Occasional /HPF (Few); Bilirubin,Urine Negative (Negative); Blood, Urine Large mg/dL (Negative); Glucose,Urine (UA) Negative (Negative); Ketones,Urine Negative (Negative); Nitrite,Urine Negative (Negative); Protein,Urine Negative; RBC,Urine 208 /HPF (0-4); Squamous Epithelial Cell,Urine Occasional /HPF (0-10); Urine Color Yellow (Yellow); Urine Specific Gravity 1.012 (1.001-1.035); Urine Urobilinogen < 2.0 EU/DL (0.2-1.0); WBC,Urine 36 /HPF (0-6)
[2017-03-01] MEDS: ENOXAPARIN 40 MG/0.4 ML SYRINGE SUBCUT SCH (21:07)
[2017-03-02] MEDS: ONDANSETRON 4 MG/2 ML VIAL IV PRN ×4 (02:22→23:06)
[2017-03-02] MEDS: MORPHINE 10 MG/1 ML VIAL IV PRN ×2 (02:29→07:41)
[2017-03-02] MEDS: LEVOTHYROXINE 100 MCG TABLET PO SCH (07:30)
[2017-03-02] MEDS: DOCUSATE SODIUM 100 MG CAPSULE PO SCH ×2 (08:34→21:04)
[2017-03-02] MEDS: MAGNESIUM CHLORIDE 64 MG TABLET PO SCH (08:35)
[2017-03-02] MEDS: POTASSIUM PHOS/SOD PHOS 250 MG TABLET PO SCH ×2 (08:35→21:04)
[2017-03-02] MEDS: CARVEDILOL 25 MG TABLET PO SCH ×2 (08:35→17:13)
[2017-03-02] MEDS: SODIUM CHLORIDE 0.9% 1,000 ML IV SCH (08:35)
[2017-03-02] MEDS: predniSONE 20 MG TABLET PO SCH (08:35)
[2017-03-02] MEDS: SERTRALINE 100 MG TABLET PO SCH (08:35)
[2017-03-02] MEDS: PANTOPRAZOLE 40 MG VIAL IV SCH (08:36)
[2017-03-02] MEDS: ZINC OXIDE PASTE 113 GM TUBE TOP SCH ×2 (08:37→20:23)
[2017-03-02] MEDS ORDERED: CLORAZEPATE 7.5 MG TABLET PO PRN (10:35)
[2017-03-02] MEDS ORDERED: HYDROmorphone 2 MG/1 ML VIAL IV PRN (10:39)
[2017-03-02] MEDS: ENOXAPARIN 40 MG/0.4 ML SYRINGE SUBCUT SCH (20:23)
[2017-03-02] MEDS: HYDROmorphone 2 MG/1 ML VIAL IV PRN (22:45)
[2017-03-03] MEDS: HYDROmorphone 2 MG/1 ML VIAL IV PRN (04:00)
[2017-03-03] MEDS: SODIUM CHLORIDE 0.9% 1,000 ML IV SCH ×2 (05:11→17:49)
[2017-03-03 06:01] LABS: Basophils # 0.1 10*3/uL (0.0-0.2); Basophils % 0.5 % (0.0-0.8); Eosinophils # 0.2 10*3/uL (0.0-0.87); Eosinophils % 1.1 % (0.00-10.9); Hematocrit 33.7 VOL% (42.0-52.0); Hemoglobin 10.4 GM/DL (14.0-18.0); Immature Granulocytes % 6.9 %; Immature Granulocytes Absolute 1.18 #; Lymphocytes # 1.1 10*3/uL (1.4-4.0); Lymphocytes % 6.6 % (21.2-54.2); Mean Corpuscular HGB Conc 30.9 GM/DL (32-36); Mean Corpuscular Hemoglobin 30 PG (27-34); Mean Platelet Volume 11.2 FL (9.6-12.0); Monocytes # 1.2 10*3/uL (0.11-0.8); Neutrophils # 13.3 10*3/uL (1.4-7.4); Neutrophils % 77.9 % (38.7-73.9); Platelet Count 211 T/CUMM (130-400); Red Blood Count 3.51 MC/CUMM (3.8-5.5); Red Cell Distribution Width 17.5 % (9.3-17.3); White Blood Count 17.1 T/CUMM (4-12)
[2017-03-03 06:29] LABS: Band Neutrophils 7 % (0-10); Calcium 7.3 MG/DL (8.5-10.1); Eosinophils 1 % (0-10); Lymphocytes 2 % (20-55); Magnesium 2.1 MG/DL (1.8-2.4); Osmolality,Calculated 296.8 MOS/KG (273-304); Potassium 4.7 MMOL/L (3.5-5.1); Segmented Neutrophils 86 % (50-85); Total Cells Counted 100
[2017-03-03 06:30] LABS: Hypochromasia 1+; Microcytosis 1+
[2017-03-03 06:31] LABS: Platelet Estimate Normal
[2017-03-03] MEDS: LEVOTHYROXINE 100 MCG TABLET PO SCH (06:33)
[2017-03-03] MEDS: ONDANSETRON 4 MG/2 ML VIAL IV PRN (06:40)
[2017-03-03] MEDS: CARVEDILOL 25 MG TABLET PO SCH ×2 (10:22→17:48)
[2017-03-03] MEDS: MAGNESIUM CHLORIDE 64 MG TABLET PO SCH (10:23)
[2017-03-03] MEDS: ZINC OXIDE PASTE 113 GM TUBE TOP SCH ×2 (10:23→20:50)
[2017-03-03] MEDS: predniSONE 20 MG TABLET PO SCH (10:23)
[2017-03-03] MEDS: POTASSIUM PHOS/SOD PHOS 250 MG TABLET PO SCH ×2 (10:23→20:50)
[2017-03-03] MEDS: PANTOPRAZOLE 40 MG VIAL IV SCH (10:23)
[2017-03-03] MEDS: DOCUSATE SODIUM 100 MG CAPSULE PO SCH ×2 (10:23→20:43)
[2017-03-03] MEDS: SERTRALINE 100 MG TABLET PO SCH (10:24)
[2017-03-03] MEDS: ENOXAPARIN 40 MG/0.4 ML SYRINGE SUBCUT SCH (20:50)
[2017-03-04] MEDS: LEVOTHYROXINE 100 MCG TABLET PO SCH (06:12)
[2017-03-04] MEDS ORDERED: VANCOMYCIN INJ 1,000 MG in SODIUM CHLORIDE 0.9% 250 ML IV ONE (06:30)
[2017-03-04] MEDS: ONDANSETRON 4 MG/2 ML VIAL IV PRN (06:45)
[2017-03-04] MEDS ORDERED: FLUCONAZOLE 40 MG/ML 35 ML/BOTTLE PO ONE (07:00)
[2017-03-04] MEDS ORDERED: ALUM/MAG/SIMETH/LIDO VISC 1:1 30 ML BOTTLE PO ONE ×2 (07:54→09:00)
[2017-03-04] MEDS: POTASSIUM CHLORIDE 20 MEQ/15 ML UDCUP PER TUBE PRN (08:59)
[2017-03-04] MEDS: DOCUSATE SODIUM 100 MG CAPSULE PO SCH (09:00)
[2017-03-04] MEDS: CARVEDILOL 25 MG TABLET PO SCH (09:00)
[2017-03-04] MEDS: PANTOPRAZOLE 40 MG VIAL IV SCH (09:00)
[2017-03-04] MEDS: MAGNESIUM CHLORIDE 64 MG TABLET PO SCH (09:00)
[2017-03-04] MEDS: predniSONE 20 MG TABLET PO SCH (09:00)
[2017-03-04] MEDS: SERTRALINE 100 MG TABLET PO SCH (09:00)
[2017-03-04] MEDS: POTASSIUM PHOS/SOD PHOS 250 MG TABLET PO SCH (09:00)
[2017-03-04] MEDS: ZINC OXIDE PASTE 113 GM TUBE TOP SCH (10:00)
[2017-03-04 12:35] VITALS: BP 103/68
[2017-03-04] MEDS ORDERED: PANTOPRAZOLE 40 MG TABLET PO SCH (21:00)
== END 2017-03-04 13:00 | disposition hospice, home (50) | DRG 193 ==
LOC: EDUNIT# → EDBD → N.ED 13:45 → N.EDINP 13:45 → N.2E 19:21
PROVIDERS: ADMIT Family Medicine; ATTEND Family Medicine
PROC: COLONBX (2017-02-24 11:05)